=== PATIENT | male | born 1950 | race Caucasian/White ===

== ENCOUNTER 2017-02-07 16:00 | Inpatient (IN) ==
[~2017-02-07 16:00] MED LIST: ACETAMINOPHEN 325 MG TABLET PO PRN; DIAZEPAM 5 MG TABLET PO ONE; DOCUSATE SODIUM 100 MG CAPSULE PO PRN; ENOXAPARIN 30 MG/0.3 ML SYRINGE SUBCUT SCH; MAGNESIUM SULF RIDER 2 GM in PREMIX 1 EACH IV PRN; MAGNESIUM SULF RIDER 4 GM in PREMIX 1 EACH IV PRN; ONDANSETRON 4 MG/2 ML VIAL IV PRN; POTASSIUM CHLORIDE RIDER 10 MEQ in PREMIX 1 EACH IV PRN; SODIUM CHLORIDE 0.9% 1,000 ML IV SCH; ZALEPLON 5 MG CAPSULE PO PRN; diphenhydrAMINE CAP 25 MG CAPSULE PO ONE
--- NOTE | 2017-02-07 16:26 | Cardiology History & Physical ---
Assessment and Plan - Time spent with patient Time spent with patient: Less than 30 minutes (1) Dyspnea on exertion Status: Acute Assessment and plan: This is been somewhat progressive recently. His alcohol confusion state indicates the possibility this is being an anginal equivalent. Current Visit: Yes (2) Anginal equivalent Status: Acute Assessment and plan: His vision exertion as well as fatigability is been progressive may be secondary to underlying coronary disease and this may be the anginal equivalent. Current Visit: Yes (3) Abnormal cardiovascular function study Status: Acute Assessment and plan: Abnormal car perfusion study recently indicative of underlying cardiac ischemia. Current Visit: Yes (4) Hypertension Status: Chronic Assessment and plan: This is a chronic issue but recently been fairly stable. Current Visit: Yes (5) Peripheral vascular disease Status: Chronic Assessment and plan: This is chronic and he is had femorofemoral bypass surgery before. Current Visit: Yes (6) CVA (cerebral vascular accident) Status: Chronic Assessment and plan: This is actually recent. He is recovered well from this. Current Visit: Yes (7) Fatigue Status: Acute Assessment and plan: This is been a recent onset but slightly progressive and chronic. Anyway this may be secondary to cardiac/coronary artery disease. Current Visit: Yes (8) Chronic renal insufficiency Status: Chronic Assessment and plan: This is been very progressive and is reaching the point now that he will probably have to have dialysis especially after his car catheterization. I did discuss with him and his the fact that more likely he will be on dialysis after his cardiac catheterization. I discussed earlier today with Dr. estrada and he notes that he thinks patient's current have to have dialysis soon and is already planning on placing a dialysis catheter. The plan is to be go ahead and pursue that this admission. Current Visit: Yes History of Present Illness Chief complaint: abnormal cardiac perfusion study History of present illness: Mr. Ferreira is a 67 year old male whom we have been following up in the office. The patient had progressive dyspnea and evaluation revealed abnormal car perfusion study. He had multiple risk factors for coronary artery disease. I discussed right and left heart catheterization with the patient and his again today. We reviewed indications procedure high be carried out and the risk. I discussed cardiac catheterization and percutaneous coronary intervention with the patient and available family. I reviewed with them the indications for the procedure and the basis of how the procedure would be carried out. I also reviewed with them the risk of the procedure which include but not necessarily limited to access site bleeding, bruising, pain, swelling or vascular injury that may require emergency vascular surgery, blood transfusion, or thrombin injection. Also discussed the possibility of stroke, myocardial infarction, arrhythmia which may require electrocardioversion, and the possibility of dye reaction that would require medical therapy. Also discussed the possibility of coronary artery injury, ruptured, closure or perforation that may require emergency bypass surgery. We also discussed the possibility of from a major complication. They also understand that he has a significant risk that he will have renal failure requiring dialysis after the procedure. I'll artery spoken with Dr. Godinez and he plans on having a temporary dialysis catheter placed. Dr. Godinez has been consult. They voice understanding and agree to proceed. My plans will be to do a right heart catheterization only if I think we find significant evidence to need to pursue this. Home Medications Medication Instructions Recorded Confirmed Type Aspirin Tab 325 mg PO DAILY 02/02/17 History Atorvastatin [Lipitor] 20 mg PO DAILY 02/02/17 History Clopidogrel [Plavix] 75 mg PO DAILY 02/02/17 History Losartan [Cozaar] 50 mg PO DAILY 02/02/17 History NIFEdipine XL TAB [Procardia Xl] 90 mg PO DAILY 02/02/17 History Allergies Allergy/AdvReac Type Severity Reaction Status Date / Time clopidogrel [From Plavix] Allergy Intermediate RASH Unverified 02/06/17 07:30 aspirin AdvReac Intermediate Gastrointestinal Unverified 02/06/17 07:30 Upset atorvastatin [From Lipitor] AdvReac Intermediate Muscle Pain Unverified 07:30 losartan AdvReac Intermediate Dizziness Unverified 02/06/17 07:30 nifedipine [From Procardia] AdvReac Intermediate Dizziness Unverified 02/06/17 07:30 Review of systems: Constitutional: Denies anorexia, chills, fever, frequent falls, night sweats, weight gain, weight loss Neck: Denies thyromegaly or masses. No stiffness. Cardiovascular: as per HPI Respiratory: Denies cough, hemoptysis, wheezing, snoring. He's had dyspnea and dyspnea on exertion. Gastrointestinal: Denies abdominal pain, constipation, dyspepsia, dysphagia, hematemesis, hematochezia, melena, nausea, vomiting Genitourinary: Denies dysuria, hematuria, nocturia. He has chronic renal insufficiency that has been progressive. Musculoskeletal: Denies arthralgias, joint swelling, muscle weakness, myalgias Neurological: denies abnormal gait, abnormal speech, confusion, convulsions, frequent falls, headaches, memory loss, syncope. He is had a recent TIA/CVA and is on Plavix. Psychiatric: Denies anxiety, confusion, depression Endocrine: Denies cold intolerance, fatigue, heat intolerance Hematologic/Lymphatic: Denies easy bleeding, easy bruising Dermatologic: Denies Rash, itching, shingles Medical,Surgical,& Family Hx - Medical History Cardio: History of: CAD, Hypertension, PVD (has had femorofemoral bypass previously) Neurology: History of: Cerebrovascular Accident Renal: History of: Renal Failure (progressive chronic renal insufficiency) - Surgical History Additional Surgical History: Femoral to femoral bypass surgery - Social History Smoking Status: Heavy tobacco smoker Have you smoked in the last 12 months: Yes Time spent discussing smoking cessation with patient: 3 to 10 minutes Marital Status: Lives With:: Spouse Functional capacity: independent ambulation Cardiology Physical Exam - Constitutional Exam: General appearance: normal weight, no acute distress Head exam: normal inspection, atraumatic Eye exam: Pupils are equal and reactive. EOMI. There is no trauma. Ear exam: Anatomically normal. Normal auditory acuity to conversation. Oral exam: No significant oral lesions. Neck exam: normal inspection no JVD. No carotid bruit. Trachea is in midline. Respiratory exam: clear to auscultation bilaterally posteriorly and anteriorly with good air movement. No rales, rhonchi or wheezes. Cardiovascular exam: regular rate and rhythm, no murmur or gallop or rub. No precordial lift. No bruits over the major arteries. Chest wall/torso: Anatomically normal. No tenderness, deformity Peripheral Pulses: 2+ throughout. GI/Abdominal exam: normal bowel sounds, soft and nontender, no abdominal bruits or pulsatile masses. Musculoskeletal/Extremities exam: normal inspection without edema or cyanosis. No deformities or trauma. Neurological exam: alert, oriented X3. There is no gross neurologic deficits. Psychiatric exam: normal affect, normal mood. Cognitive function is grossly intact. Skin exam: normal color, warm. No rashes or other skin lesions.
[2017-02-07 16:43] LABS: Basophils # 0.1 10*3/uL (0.0-0.2); Basophils % 0.7 % (0.0-0.8); Eosinophils # 0.2 10*3/uL (0.0-0.87); Eosinophils % 1.5 % (0.00-10.9); Hematocrit 29.1 VOL% (42.0-52.0); Hemoglobin 9.4 GM/DL (14.0-18.0); Immature Granulocytes % 0.7 %; Immature Granulocytes Absolute 0.07 #; Lymphocytes # 1.4 10*3/uL (1.4-4.0); Lymphocytes % 14.6 % (21.2-54.2); Mean Corpuscular HGB Conc 32.3 GM/DL (32-36); Mean Corpuscular Hemoglobin 32 PG (27-34); Mean Corpuscular Volume 98.3 FL (87-102); Mean Platelet Volume 10.7 FL (9.6-12.0); Monocytes # 0.7 10*3/uL (0.11-0.8); Monocytes % 7.3 % (1.7-12.7); Neutrophils # 7.4 10*3/uL (1.4-7.4); Neutrophils % 75.2 % (38.7-73.9); Platelet Count 285 T/CUMM (130-400); Red Blood Count 2.96 MC/CUMM (3.8-5.5); Red Cell Distribution Width 16.4 % (9.3-17.3); White Blood Count 9.8 T/CUMM (4-12)
[2017-02-07 17:04] LABS: Alanine Aminotransferase 9 U/L (16-61); Albumin 3.6 G/DL (3.4-5.0); Alkaline Phosphatase 89 U/L (45-117); Aspartate Amino Transferase 4 U/L (0-37); Bilirubin,Total < 0.39 MG/DL (0.2-1.0); Blood Urea Nitrogen 47 MG/DL (7-18); Calcium 7.8 MG/DL (8.5-10.1); Cholesterol 108 MG/DL (50-200); Glucose 126 MG/DL (74-106); HDL Cholesterol 40 MG/DL (40-60); Magnesium 2.1 MG/DL (1.8-2.4); Osmolality,Calculated 309.1 MOS/KG (273-304); Potassium 4.8 MMOL/L (3.5-5.1); Sodium 149 MMOL/L (136-145); Total Protein 7.1 G/DL (6.4-8.3); Triglycerides 122 MG/DL (2-150); VLDL CHOLESTEROL 24.4 MG/DL
--- NOTE | 2017-02-07 18:15 | XRay Report ---
2 view chest. Indication: Shortness of breath. Comparison: October 05, 2012. The heart is mildly enlarged. Calcific plaque is present within the aortic knob. The pulmonary vasculature is normal. The lung spicer are clear. No pneumothorax or pleural effusion. Impression: Mild cardiomegaly. PROCEDURE INTERPRETED AT [facility] DEPARTMENT OF RADIOLOGY Final Report Signed by: Dr. Anupama De La Torre
[2017-02-07] MEDS: SODIUM BICARB INJ 150 MEQ in DEXTROSE 5% 1,000 ML IV SCH (18:24)
[2017-02-07] MEDS: ENOXAPARIN 30 MG/0.3 ML SYRINGE SUBCUT SCH (18:25)
[2017-02-07 19:34] LABS: Apearance,Urine CLEAR (Clear); Bilirubin,Urine Negative (Negative); Blood, Urine Small mg/dL (Negative); Glucose,Urine (UA) 50 mg/dL (Negative); Ketones,Urine Negative (Negative); Mucus,Urine Occasional /LPF (Occasional); Nitrite,Urine Negative (Negative); Protein,Urine 100 MG/DL; RBC,Urine <1 /HPF (0-4); Urine Color Straw (Yellow); Urine Urobilinogen < 2.0 EU/DL (0.2-1.0); WBC,Urine 1 /HPF (0-6)
[2017-02-08] MEDS ORDERED: diphenhydrAMINE CAP 25 MG CAPSULE PO ONE (06:00)
[2017-02-08] MEDS ORDERED: DIAZEPAM 5 MG TABLET PO ONE (06:00)
--- NOTE | 2017-02-08 06:49 | Cardiology Progress Note ---
Assessment and Plan (1) Dyspnea on exertion Status: Acute Assessment and plan: This is been somewhat progressive recently. His alcohol confusion state indicates the possibility this is being an anginal equivalent. Current Visit: Yes (2) Anginal equivalent Status: Acute Assessment and plan: His dyspnea on exertion as well as fatigability is been progressive may be secondary to underlying coronary disease and this may be the anginal equivalent. Current Visit: Yes (3) Abnormal cardiovascular function study Status: Acute Assessment and plan: Abnormal cardiac perfusion study recently indicative of underlying cardiac ischemia. Current Visit: Yes (4) Hypertension Status: Chronic Assessment and plan: This is a chronic issue and is elevated some this morning. We will need to adjust his medications accordingly Current Visit: Yes (5) Peripheral vascular disease Status: Chronic Assessment and plan: This is chronic and he is had femorofemoral bypass surgery before. Current Visit: Yes (6) CVA (cerebral vascular accident) Status: Chronic Assessment and plan: This is actually recent. He is recovered well from this. Current Visit: Yes (7) Fatigue Status: Acute Assessment and plan: This is been a recent onset but slightly progressive and chronic. Anyway this may be secondary to cardiac/coronary artery disease. Current Visit: Yes (8) Chronic renal insufficiency Status: Chronic Assessment and plan: This is been very progressive and is reaching the point now that he will probably have to have dialysis especially after his cardiac catheterization. Again I discuss with him and his the fact that more likely he will be on dialysis after his cardiac catheterization. Dr. Godinez has been consult. Current Visit: Yes Cardiology - PN: Subj Interval history: Patient is doing well this morning. No chest pain shortness of breath. He is receiving IV fluids, bicarbonate in preparation for his cardiac catheterization. Again reviewed cardiac catheterization and possible intervention with the patient's family. They voice understanding and have no questions. We will pursue car catheterization today. Patient's lab work is reviewed in his hematocrit is 29 hemoglobin 9.4. His creatinine is 5.8 BUN is 47. Exam (Progress Note) - Constitutional Vitals: Period Temp Pulse Resp BP Sys/Thomas Pulse Ox Last 24 Hr 98 F-99.3 F 69-83 18-20 163-189/82-112 97-100 Exam: General appearance: normal weight, no acute distress Head exam: normal inspection, atraumatic Eye exam: There is no trauma. Ear exam: Anatomically normal. Normal auditory acuity to conversation. Neck exam: normal inspection no JVD. No carotid bruit. Trachea is in midline. Respiratory exam: clear to auscultation bilaterally posteriorly and anteriorly with good air movement. No rales, rhonchi or wheezes. Cardiovascular exam: regular rate and rhythm, no murmur or gallop or rub. No precordial lift. No bruits over the major arteries. Chest wall/torso: Anatomically normal. No tenderness, deformity Peripheral Pulses: 2+ throughout. GI/Abdominal exam: normal bowel sounds, soft and nontender, no abdominal bruits or pulsatile masses. Musculoskeletal/Extremities exam: normal inspection without edema or cyanosis. No deformities or trauma. Neurological exam: alert, oriented X3. There is no gross neurologic deficits. Psychiatric exam: normal affect, normal mood. Cognitive function is grossly intact. Skin exam: Warm and dry. Result/EKG - Labs CBC & BMP: 02/07/17 16:26 02/07/17 16:26 Lab Results: I have reviewed the past 24 hour labs Labs: Laboratory Results - last 24 hr 02/07/17 02/07/17 02/07/17 16:26 16:26 19:15 WBC 9.8 RBC 2.96 L Hgb 9.4 L Hct 29.1 L MCV 98.3 MCH 32 MCHC 32.3 RDW 16.4 Plt Count 285 MPV 10.7 Neut % (Auto) 75.2 H Lymph % (Auto) 14.6 L [place] % (Auto) 7.3 Eos % (Auto) 1.5 Baso % (Auto) 0.7 Neut # (Auto) 7.4 Lymph # (Auto) 1.4 [place] # (Auto) 0.7 Eos # (Auto) 0.2 Baso # (Auto) 0.1 Immature Gran % 0.7 Nucleated RBC % 0.0 Immature Gran # 0.07 Nucleated RBCs # 0.00 Sodium 149 H Potassium 4.8 Chloride 121 H Carbon Dioxide 15 L Anion Gap 17.8 H BUN 47 H Creatinine 5.80 H GFR Calculation 11 BUN/Creatinine Ratio 8.00 Glucose 126 H Calculated Osmolality 309.1 H Calcium 7.8 L Magnesium 2.1 Total Bilirubin < 0.39 AST 4 ALT 9 L Alkaline Phosphatase 89 Total Protein 7.1 Albumin 3.6 Globulin 3.5 Albumin/Globulin Ratio 1.0 L Triglycerides 122 Cholesterol 108 LDL Cholesterol 51.0 VLDL Cholesterol 24.4 HDL Cholesterol 40 Heart Disease Risk Ratio 2.70 Urine Color Straw Urine Appearance Clear Urine pH 5.0 Ur Specific [place] 1.010 Urine Protein 100 Urine Glucose (UA) 50 Urine Ketones Negative Urine Blood Small Urine Nitrate Negative Urine Bilirubin Negative Urine Urobilinogen < 2.0 H Urine Leukocytes Negative Urine RBC <1 Urine WBC 1 Urine Mucus Occasional Ur Culture Indicated? Not indicated
--- NOTE | 2017-02-08 06:56 | History and Physical Update ---
Sedation H&P Update - History and Physical H&P was reviewed, the patient examined and there: are no changes in the patients condition since last H&P was completed. - Dictation Physical: refer to scanned H&P, refer to H&P completed by admitting physician - Physical Exam Mental Status: alert and oriented Heart: regular rate and rhythm Lung: clear to auscultation Abdomen: within normal limits Vitals: within normal limits History and Physical Changes: None - Sedation Plan for Sedation: moderate Patient Consent: Procedure disscussed with patient and patinet has consented., Risks and benefits were discussed with patient,including infection,, bleeding, injury to surrounding structures, seizure, temporary nerve, Patient understands and accepts potential risks/benefits and agrees to, proceed. ASA Class: III Airway Assessment: Class III: Soft palate, base of uvula visible
[2017-02-08] MEDS ORDERED: LIDOCAINE 1% 20 ML VIAL ONE (07:18)
[2017-02-08] MEDS ORDERED: MIDAZOLAM 2 MG/2 ML VIAL ONE ×2 (07:19→15:43)
[2017-02-08] MEDS ORDERED: NITROGLYCERIN DRIP 50 MG/250 ML BOTTLE IV ONE (07:19)
[2017-02-08] MEDS ORDERED: fentaNYL 100 MCG/2 ML VIAL ONE ×2 (07:19→15:43)
[2017-02-08] MEDS ORDERED: VERAPAMIL 5 MG/2 ML VIAL ONE (07:19)
[2017-02-08] MEDS ORDERED: ENOXAPARIN 30 MG/0.3 ML SYRINGE ONE (07:35)
--- NOTE | 2017-02-08 07:56 | Operative Note ---
Date of procedure: 02/08/17 Procedure Preformed: Left heart catheterization Surgeon / Physician: Adan Lemus Post-op diagnosis: same Findings: Diffuse coronary artery disease of his left coronary system. Patient needs coronary bypass surgery Specimens: none sent Estimated blood loss: minimal Condition: stable Anesthesia: local, conscious sedation Disposition: floor
--- NOTE | 2017-02-08 08:23 | Event Note ---
Dr. Godinez has requested a tunneled hemodialysis catheter. I discussed tunneled dialysis catheter along with the risks with the patient and his family. He just had a heart catheterization and has been told that he will need heart surgery. I discussed the risks both from an anesthetic standpoint considering his heart disease and comorbidities as well as the risks specific to the procedure including thrombosis infection pneumothorax or injury to heart or great vessels. He understands these risks and wishes to proceed.
--- NOTE | 2017-02-08 08:27 | Cardiac Catheterization ---
Date of Procedure:: 02/08/17 Pre-op Diagnosis: Patient with clinical coronary artery disease and abnormal cardiac perfusion study. Post-op diagnosis: same Procedure: LEFT HEART CATHETERIZATION History: 67-year-old man with multiple risk factors for coronary disease. Now recent angina and dyspnea on exertion. And PERFUSION study consistent ischemic heart disease. Pre-Op diagnosis: Abnormal cardiac perfusion study, dyspnea on exertion and angina equivalent symptomatology. Coronary disease. Postoperative diagnosis: Coronary artery disease Procedures: 1. Left heart catheterization. 2. Left ventricular angiogram. 3. Selective left and right coronary angiograms. Equipment: Terumo 6 [place] radial glide arterial sheath, Terumo 6 [place] radial TIG 4.0 diagnostic. Medium/Large TR band. Medications: Preoperative Benadryl and Valium given by mouth. Lidocaine 1% local anesthesia 0.25 mls administered by myself. Intraprocedure patient received Versed 1 mgs IVP, fentanyl 50 mcgs IVP, Verapamil 5 mg/NTG 200 mcg in 5 ml NS; Lovenox 30 mgs IVP. Complications: None immediate. Contrast: Visipaque 76 milliliters. Description of procedure: After informed consent the patient was given preoperative medications and brought to the catheterization laboratory where their right groin and right anterior wrist and forearm was prepped and draped in usual fashion. IV sedation was then obtained after which local anesthesia with lidocaine was administered over the right radial artery. Using the double wall needle the radial artery was cannulated. Microguidewire was advanced through the cannula into the radial artery. We exchanged for the radial artery sheath that was advanced over the microguidewire. Guidewire was removed. The diagnostic 6 [place] TIG 4.0 catheter was advanced and used to cross the aortic valve and left ventricular pressures were measured with LVEDP. Left ventricular angiogram was then obtained in the right oblique view. Pressures were again measured in the left ventricle with pullback pressures were then measured in the aortic root. This same catheter was then used to cannulate the left and then right coronary arteries of which angiograms were obtained of each of these vessels in multiple projections. The angiograms were then reviewed. We attempted to cannulate the left subclavian artery for angiogram was unable to do so. The diagnostic catheter was then removed over the guidewire. The TR band was then placed in the usual fashion and hemostasis obtained. Hemodynamic data: LV 114/5 , EDP 10 ; post angio LV 107/3 , EDP 15 ; AO root 108/63 , mean 83 . Left ventricular angiogram: Left ventricle normal size with anterior and apical hypokinesis and severe. Inferior wall contract fairly normally. Overall ejection fraction 40%. Left main coronary artery angiogram: Left main coronary artery is medium to large sized vessel that bifurcated LAD and circumflex arteries. It is without stenosis or disease. Left anterior descending artery angiogram: The LAD is a medium plus size vessel. First and second diagonal branches appear to be somewhat small medium caliber vessels. The LAD proper has 80+ percent stenosis between the first and second diagonal branches. The first diagonal branch appears to be unremarkable without significant disease. The second diagonal branch has high-grade 90% stenosis. Circumflex artery angiogram: Circumflex artery is medium caliber vessel. The first obtuse marginal branch is very proximal takeoff and is a medium caliber vessel. This vessel has diffuse disease with up to 70-80% stenosis. Beyond this the entire circumflex artery has diffuse disease up to 90% stenosis. The second obtuse marginal is a medium caliber vessel and up for bypass surgery. Right coronary artery angiogram: The RCA is a medium caliber dominant vessel. The PDA is a medium caliber vessel. There is multiple postop branches are arranged in small to medium caliber, large in the posterior myocardium. The AV node artery small caliber vessel with a distal takeoff. There is some diffuse irregularities without at 2030% proximal and distal stenosis. Distal stenosis is pre-PDA takeoff. Left internal mammary artery angiogram: We were unable to visualize this vessel. Impression: 1. Left ventricle is normal size with anterior apical hypokinesis ejection fraction 40%. 2. LVEDP was normal at 10 mmHg. 3. There was no gradient across the aortic valve. This out. To be probably tricuspid structure. 4. No significant mitral regurgitation is demonstrated. 5. Right coronary artery is dominant with 20-30% stenosis at worst. 6. Left main coronary is widely patent. 7. LAD with mid 80+ percent stenosis, secondary to what I percent stenosis. 8. Circumflex artery with diffuse coronary disease with high-grade 78% stenosis in the first obtuse marginal branch and diffuse stenosis in the body of the circumflex artery of up to 90% stenosis. 9. The LAD as well as both obtuse marginal branches are adequate for bypass surgery. Discussion: We'll monitor this patient post catheterization. This patient is aggressive risk factor modification. I think his disease is best approached from bypass surgery. We'll consult cardiovascular surgery. Implants: None Anesthesia: local, moderate conscious sedation Surgeon / Physician: Adan Lemus Palm And Back Forger: other (Tremayne Noland RN) Estimated blood loss: minimal Specimens: none sent Condition: stable Disposition: floor - Medications / Follow-up
--- NOTE | 2017-02-08 08:37 | Nephrology Consult Note ---
History of Present Illness Chief complaint: Late entry, pt seen yesterday. 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 Ferreira is a 67 year old male with CKD for years with atrophic/ischemic kidneys (5cm and 8cm respectively in renal lengths). Initially seen by me in clinic approx one month ago. Sent for hemodialysis surgical access placement. He was seen in clinic yesterday by me. BP improved, but still not at goal after adding losartan 50mg daily. Stated he feels terrible. Metabolic acidosis worse ( CO2 15). eGFR 9cc/min with mild uremic symptoms. Admitted for elective coronary angiography yesterday evening and started on bicarb volume resuscitation overnight. Cath this am with multivessel ASCAD. Plan to keep hospitalized until 3v CABG can be performed. Home Medications Medication Instructions Recorded Confirmed Type Atorvastatin [Lipitor] 20 mg PO BEDTIME 02/02/17 02/07/17 History Clopidogrel [Plavix] 75 mg PO BEDTIME 02/02/17 02/07/17 History Losartan [Cozaar] 50 mg PO BEDTIME 02/02/17 02/07/17 History NIFEdipine XL TAB [Procardia Xl] 90 mg PO BEDTIME 02/02/17 02/07/17 History Aspirin EC Tab 81 mg PO BEDTIME 02/07/17 02/07/17 History Allergies Allergy/AdvReac Type Severity Reaction Status Date / Time No Known Allergies Allergy Verified 02/08/17 07:05 Medical,Surgical,& Family Hx - Medical History Cardio: History of: CAD, Hypertension, PVD (has had femorofemoral bypass previously) Neurology: History of: Cerebrovascular Accident Endocrine: History of: Dyslipidemia Renal: History of: Renal Failure (progressive chronic renal insufficiency) Gastrointestinal: History of: GERD - Surgical History Cardiac Surgeries: Sugical HX of: Cardiac Surgery (previous fempop) - Family History Family History: Reports;: Family Diabetes, Family Hypertension - Social History Smoking Status: Heavy tobacco smoker Exam - Vital Signs Vital signs: Period Temp Pulse Resp BP Sys/Thomas Pulse Ox Last 24 Hr 98 F-99.3 F 69-83 18-20 163-189/82-112 97-100 - General Appearance General appearance: cachectic, chronically ill EENT: ATNC, PERRL, mucous membranes dry (edentulous), hearing intact, vision intact Neck: no JVD, no thyromegaly Respiratory: no kyphosis, clear Cardiology: no murmurs, no rub, no edema Gastrointestinal: normoactive bowel sounds, no tenderness Integumentary: no rash, warm and dry Neurologic: no focal deficit, no asterixis, alert and oriented x3 Musculoskeletal: no deformities, no erythema Psychiatric: mood/affect appropriate, cooperative Results - Labs CBC & BMP: 02/07/17 16:26 02/07/17 16:26 Assessment and Plan (1) ESRD needing dialysis Problem details: Discussed with vascular surgeon, Dr Sergio GIBSON. Plan for tunneled HD catheter placement today with initiation of HD daily for 3 days. Low and slow. Optimize medically for CABG. Daily HD x 3 days. 2hrs today, 3hrs tomorrow, 4hrs the next day. No UF today. Heparin free today. Status: Acute Assessment and plan: Social work consult for outpatient dialysis placement. Likely best unit would be the [facility]. ESRD educator, Michelle Bhatia. Current Visit: Yes (2) Hypertension Problem details: likely renovascularly driven. D/Cd losartan, start valsartan 160mg daily. Goal <130/80. Status: Chronic Current Visit: Yes
[2017-02-08] MEDS ORDERED: EPOETIN ALFA 10,000 UNIT/1 ML VIAL IV PRN (08:47)
[2017-02-08 09:54] LABS: % Iron Saturation 29.5 % (18-50)
[2017-02-08] MEDS: VALSARTAN 160 MG TABLET PO SCH (09:56)
[2017-02-08] MEDS: ACETAMINOPHEN 325 MG TABLET PO PRN ×2 (09:56→18:51)
[2017-02-08] MEDS: NICOTINE 21 MG/24 HR PATCH TRANSDERM SCH (09:56)
[2017-02-08] MEDS: CALCITRIOL 0.25 MCG CAPSULE PO SCH (09:56)
[2017-02-08] MEDS: PANTOPRAZOLE 40 MG TABLET PO SCH (09:57)
[2017-02-08] MEDS: SODIUM BICARB INJ 150 MEQ in DEXTROSE 5% 1,000 ML IV SCH ×4 (11:26→22:25)
--- NOTE | 2017-02-08 11:30 | EKG Report ---
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
[2017-02-08] MEDS ORDERED: DEXTROSE 50% 25 GM/50 ML VIAL IV PRN (11:39)
[2017-02-08] MEDS ORDERED: GLUCAGON 1 MG VIAL IM PRN (11:39)
--- NOTE | 2017-02-08 11:39 | Cardiothoracic Progress Note ---
Cardiothoracic Subjective Interval history: Patient is a 67-year-old man with chronic kidney disease who is going to be started on hemodialysis during this hospitalization. He also has had chest discomfort prompting cardiac catheterization which demonstrated severe LAD and circumflex coronary disease. Patient has been referred for bypass surgery. Upon reviewing the coronary angiograms I agree with Dr. Lemus that coronary bypass is the best option. He is to have his dialysis catheters placed today and ideally could be dialyzed tomorrow in preparation for bypass surgery on Monday. I have discussed this with the patient and I am going to write orders for Monday surgery pending the approval of Dr. Carver and Dr. Lemus. Exam (Progress Note) - Constitutional Vitals: Period Temp Pulse Resp BP Sys/Thomas Pulse Ox Last 24 Hr 98 F-99.3 F 66-83 18-20 149-189/82-112 96-100 Result/EKG - Labs CBC & BMP: 02/07/17 16:26 02/07/17 16:26 Labs: Laboratory Results - last 24 hr 02/07/17 02/07/17 02/07/17 16:26 16:26 19:15 WBC 9.8 RBC 2.96 L Hgb 9.4 L Hct 29.1 L MCV 98.3 MCH 32 MCHC 32.3 RDW 16.4 Plt Count 285 MPV 10.7 Neut % (Auto) 75.2 H Lymph % (Auto) 14.6 L Douglas % (Auto) 7.3 Eos % (Auto) 1.5 Baso % (Auto) 0.7 Neut # (Auto) 7.4 Lymph # (Auto) 1.4 Douglas # (Auto) 0.7 Eos # (Auto) 0.2 Baso # (Auto) 0.1 Immature Gran % 0.7 Nucleated RBC % 0.0 Immature Gran # 0.07 Nucleated RBCs # 0.00 Sodium 149 H Potassium 4.8 Chloride 121 H Carbon Dioxide 15 L Anion Gap 17.8 H BUN 47 H Creatinine 5.80 H GFR Calculation 11 BUN/Creatinine Ratio 8.00 Glucose 126 H Calculated Osmolality 309.1 H Calcium 7.8 L Magnesium 2.1 Iron TIBC % Saturation Total Bilirubin < 0.39 AST 4 ALT 9 L Alkaline Phosphatase 89 Total Protein 7.1 Albumin 3.6 Globulin 3.5 Albumin/Globulin Ratio 1.0 L Triglycerides 122 Cholesterol 108 LDL Cholesterol 51.0 VLDL Cholesterol 24.4 HDL Cholesterol 40 Heart Disease Risk Ratio 2.70 PTH Intact Urine Color Straw Urine Appearance Clear Urine pH 5.0 Ur Specific [place] 1.010 Urine Protein 100 Urine Glucose (UA) 50 Urine Ketones Negative Urine Blood Small Urine Nitrate Negative Urine Bilirubin Negative Urine Urobilinogen < 2.0 H Urine Leukocytes Negative Urine RBC <1 Urine WBC 1 Urine Mucus Occasional Ur Culture Indicated? Not indicated 02/08/17 02/08/17 09:04 09:04 WBC RBC Hgb Hct MCV MCH MCHC RDW Plt Count MPV Neut % (Auto) Lymph % (Auto) Douglas % (Auto) Eos % (Auto) Baso % (Auto) Neut # (Auto) Lymph # (Auto) [place] # (Auto) Eos # (Auto) Baso # (Auto) Immature Gran % Nucleated RBC % Immature Gran # Nucleated RBCs # Sodium Potassium Chloride Carbon Dioxide Anion Gap BUN Creatinine GFR Calculation BUN/Creatinine Ratio Glucose Calculated Osmolality Calcium Magnesium 2.0 Iron 62 L TIBC 210 L % Saturation 29.5 Total Bilirubin AST ALT Alkaline Phosphatase Total Protein Albumin Globulin Albumin/Globulin Ratio Triglycerides Cholesterol LDL Cholesterol VLDL Cholesterol HDL Cholesterol Heart Disease Risk Ratio PTH Intact 492.0 H Urine Color Urine Appearance Urine pH Ur Specific [place] Urine Protein Urine Glucose (UA) Urine Ketones Urine Blood Urine Nitrate Urine Bilirubin Urine Urobilinogen Urine Leukocytes Urine RBC Urine WBC Urine Mucus Ur Culture Indicated?
[2017-02-08] MEDS ORDERED: ceFAZolin 1,000 MG VIAL ONE (13:14)
[2017-02-08] MEDS ORDERED: HEPARIN 5,000 UNIT/1 ML VIAL ONE (13:34)
[2017-02-08] MEDS ORDERED: BUPIVACAINE MPF 0.25% /EPI 30 ML VIAL ONE (13:34)
[2017-02-08] MEDS: CALCIUM ACETATE 667 MG CAPSULE PO SCH ×2 (13:41→18:46)
[2017-02-08] MEDS: SODIUM CHLORIDE 0.9% 1,000 ML IV SCH (13:41)
--- NOTE | 2017-02-08 13:48 | Event Note ---
Patient doing well initially from his car catheterization morning. He is for bypass surgery Monday with Dr. Sky. The patient is having dialysis catheter placement for dialysis.
[2017-02-08 14:10] LABS: Hepatitis A Ab IgM Quant 0.11 Index; Hepatitis A Ab IgM Result Negative (Negative); Hepatitis B Core IgM Quant 0.16 Index; Hepatitis B Core IgM Result Negative (Negative); Hepatitis B Surface Ag Quant < 0.10 Index; Hepatitis B Surface Ag Result Negative (Negative); Hepatitis C Virus Ab Quant 0.11 Index; Hepatitis C Virus Ab Result Negative (Negative)
--- NOTE | 2017-02-08 15:30 | Operative Note ---
Date of procedure: 02/08/17 Pre-op diagnosis: chronic renal failure Post-op diagnosis: same Procedure: 19 cm tunneled hemodialysis catheter right internal jugular vein under ultrasound and fluoroscopic guidance Findings and technique: After informed consent was obtained patient was brought the operating room placed in spine position. After IV sedation was administered the patient's neck and chest was prepped and draped in usual sterile fashion. Local anesthesia was infiltrated and a sterile ultrasound probe placed on the right neck were the internal jugular vein was identified and accessed with single stick without difficulty. Guidewire was advanced under fluoroscopy and incision made at the guidewire puncture site and a separate stab incision made beneath the right clavicle. The catheter was tunneled between the 2 incisions and an introducer sheath passed over the guidewire without resistance and the catheter introduced after the guidewire was removed. The catheter was positioned the tip in the mid superior vena cava under fluoroscopy and the catheter was easily accessed aspirated and flushed. The incision the neck was closed up to 3-0 nylon suture and the catheter sutured to the skin. A chest x-ray was pending. Anesthesia: MAC, local Surgeon / Physician: Joseph Hill III. Estimated blood loss: minimal Specimens: none sent Condition: stable Disposition: PACU Results - Labs CBC & BMP: 02/07/17 16:26 02/07/17 16:26 Discharge Plan - Discharge Medications No Action NIFEdipine XL TAB [Procardia Xl] 90 mg PO BEDTIME Losartan [Cozaar] 50 mg PO BEDTIME Clopidogrel [Plavix] 75 mg PO BEDTIME Atorvastatin [Lipitor] 20 mg PO BEDTIME Aspirin EC Tab 81 mg PO BEDTIME - Follow Up or Referral - Forms/Instructions
--- NOTE | 2017-02-08 15:41 | Anesthesia ---
Anesthesia Post OP - Post Ansesthetic Evaluation Patient seen in post op: Yes Resp: within normal limits CV: within normal limits Mental: within normal limits Temp: within normal limits [id number]-[id number]: within normal limits Nausea and Vomiting: within normal limits Pain: within normal limits
[2017-02-08] MEDS ORDERED: PROPOFOL 200 MG/20 ML VIAL IV ONE (15:43)
--- NOTE | 2017-02-08 15:57 | XRay Report ---
XR chest 1V portable Indication: Dialysis catheter placement Comparison: Chest x-ray dated February 07, 2017 Technique: Single frontal view of the chest Findings: Continued cardiomegaly. Right-sided central venous catheter tip projects over the mid SVC. No focal consolidation, pleural effusion, or pneumothorax. Osseous and surrounding soft tissue structures appear grossly unchanged. IMPRESSION: Continued cardiomegaly without harlan pulmonary edema. PROCEDURE INTERPRETED AT [facility] DEPARTMENT OF RADIOLOGY Final Report Signed by: Dr Anthony Limon
--- NOTE | 2017-02-08 16:38 | Interventional Radiology Rpt ---
IR fluoro guide cv cath Clinical Information: ESRD with new dialysis catheter Total fluoroscopy time: 9 SEC Comparison: none Findings: Interoperative fluoroscopy for dialysis catheter placement at the right internal jugular vein. 29 images were submitted. Images were evaluated by the attending surgeon at the time of the procedure. Impression: Intraoperative fluoroscopy as detailed above. PROCEDURE INTERPRETED AT [facility] DEPARTMENT OF RADIOLOGY Final Report Signed by: Ravi Dietz
--- NOTE | 2017-02-08 18:23 | Hospitalist Consult Note ---
Assessment and Plan (1) Elevated glucose Status: Acute Assessment and plan: Only slightly elevated. No known history. Will check A1C Current Visit: Yes (2) Hypertension Problem details: likely renovascularly driven. D/Cd losartan, start valsartan 160mg daily. Goal <130/80. Status: Chronic Assessment and plan: Started on valsartan today. Nephrology managing Current Visit: Yes (3) CVA (cerebral vascular accident) Status: Chronic Assessment and plan: Per patient 6 weeks ago Current Visit: Yes (4) ESRD needing dialysis Problem details: Discussed with vascular surgeon, Dr Sergio GIBSON. Plan for tunneled HD catheter placement today with initiation of HD daily for 3 days. Low and slow. Optimize medically for CABG. Daily HD x 3 days. 2hrs today, 3hrs tomorrow, 4hrs the next day. No UF today. Heparin free today. Status: Acute Assessment and plan: Left tunnel cath placed today. HD initiated 02/08/17. Current Visit: Yes History of Present Illness - Consult Narrative History of present illness: Mr. Ferreira is a 67 year old male with HTN, CKD and PVD admitted for CABG. Cardiac cath performed today with extensive disease. Patient has been followed closely by nephrology for progressing CKD. Tunnel cath was placed today with initiation of HD afterwards. Hospitalist have been consulted for medical management. Patient denies a history of Diabetes mellitus. CC: fatigue - Home Medications and Allergies Home Medications: Home Medications Medication Instructions Recorded Confirmed Type Atorvastatin [Lipitor] 20 mg PO BEDTIME 02/02/17 02/07/17 History Clopidogrel [Plavix] 75 mg PO BEDTIME 02/02/17 02/07/17 History Losartan [Cozaar] 50 mg PO BEDTIME 02/02/17 02/07/17 History NIFEdipine XL TAB [Procardia Xl] 90 mg PO BEDTIME 02/02/17 02/07/17 History Aspirin EC Tab 81 mg PO BEDTIME 02/07/17 02/07/17 History Allergies/Adverse Reactions: Allergies Allergy/AdvReac Type Severity Reaction Status Date / Time No Known Allergies Allergy Verified 02/08/17 07:05 Medical,Surgical,& Family Hx - Medical History Cardio: History of: CAD, Hypertension, PVD (has had femorofemoral bypass previously) Neurology: History of: Cerebrovascular Accident Endocrine: History of: Dyslipidemia Renal: History of: Renal Failure (progressive chronic renal insufficiency) Gastrointestinal: History of: GERD - Surgical History Cardiac Surgeries: Sugical HX of: Cardiac Surgery (previous fempop) - Family History Family History: Reports;: Family Diabetes, Family Hypertension - Social History Smoking Status: Heavy tobacco smoker - Constitutional Constitutional: Absent: fever(s), headache(s) - EENT Eyes: Present: blurry vision. Absent: diplopia Ears: Absent: decreased hearing, ear pain Nose, mouth and throat: Absent: nasal congestion, sinus pressure - Cardiovascular Cardiovascular: Present: dyspnea on exertion. Absent: edema - Respiratory Respiratory: Absent: cough, wheezing - Gastrointestinal Gastrointestinal: Absent: abdominal pain, change in bowel habits - Genitourinary Genitourinary: Absent: difficulty urinating, urinary frequency - Musculoskeletal Musculoskeletal: Absent: back pain, joint swelling - Neurological Neurological: Absent: dizziness, focal weakness - Psychiatric Psychiatric: Absent: anxiety, depression - Endocrine Endocrine: Absent: cold intolerance, heat intolerance - Hematologic/Lymphatic Hematologic/Lymphatic: Absent: easy bleeding, easy bruising Exam - Constitutional Vitals: Period Temp Pulse Resp BP Sys/Thomas Pulse Ox Last 24 Hr 97.6 F-99.3 F 66-80 16-20 149-185/82-109 95-100 General appearance: over weight - Head Head exam: Present: normocephalic, atraumatic - Eye Eye exam: Present: EOMI Pupils: Present: DEB - ENT ENT exam: Present: normal exam - Neck Neck exam: Present: normal inspection - Respiratory Respiratory exam: Present: clear to auscultation bilaterally. Absent: wheezes - Cardiovascular Cardiovascular exam: Present: regular rate and rhythm - GI/Abdominal GI/Abdominal exam: Present: normal bowel sounds, soft - Extremities Exam Extremities exam: Present: normal inspection - Neurological Exam Neurological exam: Present: alert, oriented X3 - Psychiatric Psychiatric exam: Present: normal affect, normal mood - Skin Skin exam: Present: warm, intact Results - Labs CBC & BMP: 02/07/17 16:26 02/07/17 16:26 Quality Measures - VTE Contraindication to Pharmacological VTE Prophylaxis: High Risk of Bleeding
[2017-02-08] MEDS ORDERED: hydrALAZINE 20 MG/1 ML VIAL IV PRN (18:33)
[2017-02-08] MEDS: ENOXAPARIN 30 MG/0.3 ML SYRINGE SUBCUT SCH (18:47)
[2017-02-08] MEDS ORDERED: CLOPIDOGREL 75 MG TABLET PO SCH (21:00)
[2017-02-08] MEDS ORDERED: LOSARTAN 50 MG TABLET PO SCH (21:00)
[2017-02-08] MEDS: ATORVASTATIN 20 MG TABLET PO SCH (21:07)
[2017-02-08] MEDS: ASPIRIN EC 81 MG TABLET PO SCH (21:07)
[2017-02-08] MEDS: CHLORHEXIDINE 0.12% ORAL RINSE 60 ML BOTTLE SWISH/SPIT SCH (22:25)
[2017-02-09 03:47] LABS: ABG Base Excess -2.1 MMOL/L (-2.5-2.5); ABG HCO3 21.9 MMOL/L (20-26); ABG Oxygen Saturation 93.4 % (95-100); ABG PCO2 34.3 MM HG (35-48); ABG PH 7.423 (7.35-7.45); ABG PO2 67.9 MM HG (80-95)
[2017-02-09 05:36] LABS: Basophils # 0.1 10*3/uL (0.0-0.2); Eosinophils # 0.2 10*3/uL (0.0-0.87); Eosinophils % 1.9 % (0.00-10.9); Hematocrit 24.6 VOL% (42.0-52.0); Hemoglobin 8.3 GM/DL (14.0-18.0); Immature Granulocytes % 0.6 %; Immature Granulocytes Absolute 0.06 #; Lymphocytes # 1.4 10*3/uL (1.4-4.0); Lymphocytes % 13.8 % (21.2-54.2); Mean Corpuscular HGB Conc 33.7 GM/DL (32-36); Mean Corpuscular Hemoglobin 31 PG (27-34); Mean Corpuscular Volume 92.5 FL (87-102); Monocytes # 0.8 10*3/uL (0.11-0.8); Monocytes % 8.2 % (1.7-12.7); Neutrophils # 7.5 10*3/uL (1.4-7.4); Neutrophils % 74.5 % (38.7-73.9); Platelet Count 232 T/CUMM (130-400); Red Blood Count 2.66 MC/CUMM (3.8-5.5); Red Cell Distribution Width 15.5 % (9.3-17.3); White Blood Count 10.1 T/CUMM (4-12)
[2017-02-09 06:10] LABS: Calcium 7.8 MG/DL (8.5-10.1); Osmolality,Calculated 301.3 MOS/KG (273-304); Phosphorous 4.1 MG/DL (2.5-4.9); Potassium 4.1 MMOL/L (3.5-5.1)
[2017-02-09 06:20] LABS: Bilirubin,Total 0.5 MG/DL (0.2-1.0); Calcium 7.9 MG/DL (8.5-10.1); Osmolality,Calculated 303.1 MOS/KG (273-304); Potassium 4.2 MMOL/L (3.5-5.1); Total Protein 5.8 G/DL (6.4-8.3)
[2017-02-09 06:28] LABS: Calcium 7.9 MG/DL (8.5-10.1); Potassium 4.1 MMOL/L (3.5-5.1); Risk Ratio 2.71; VLDL CHOLESTEROL 13.4 MG/DL
[2017-02-09] MEDS: SODIUM BICARB INJ 150 MEQ in DEXTROSE 5% 1,000 ML IV SCH ×2 (06:29→16:44)
--- NOTE | 2017-02-09 06:38 | Cardiology Progress Note ---
Assessment and Plan (1) Dyspnea on exertion Status: Acute Assessment and plan: Stable at this point. This is probably angina equivalent now knowing his coronary anatomy. Current Visit: Yes (2) Anginal equivalent Status: Acute Assessment and plan: Symptomatology probably angiogram but now documented severe coronary artery disease. Current Visit: Yes (3) Abnormal cardiovascular function study Status: Acute Assessment and plan: Abnormal car perfusion study revealed ischemic abnormalities which is now been confirmed on cardiac catheterization. Current Visit: Yes (4) Hypertension Problem details: likely renovascularly driven. D/Cd losartan, start valsartan 160mg daily. Goal <130/80. Status: Chronic Assessment and plan: Blood pressures fluctuating we'll monitor this perioperatively. Current Visit: Yes (5) Peripheral vascular disease Status: Chronic Assessment and plan: This is chronic and he is had femorofemoral bypass surgery before. Current Visit: Yes (6) CVA (cerebral vascular accident) Status: Chronic Assessment and plan: This is actually recent. He is recovered well from this. Current Visit: Yes (7) Fatigue Status: Acute Assessment and plan: This is been a recent onset but slightly progressive and chronic. Probably related to his coronary artery disease. Certainly his renal dysfunction is been progressive may contribute to this. Current Visit: Yes (8) Chronic renal insufficiency Status: Chronic Assessment and plan: Patient's [facility] to hemodialysis. Current Visit: Yes (9) Coronary artery disease Status: Acute Assessment and plan: This is now confirmed on cardiac catheterizations for coronary bypass surgery tomorrow. Current Visit: Yes (10) Tobacco abuse Status: Chronic Assessment and plan: Patient needs to stop smoking certainly this contributed to his vascular disease. Current Visit: Yes (11) Anemia Status: Acute Assessment and plan: This is probably really somewhat chronic. May related to multiple factors but especially his chronic disease and his renal failure. Current Visit: Yes Qualifiers: Anemia type: unspecified type Qualified Code(s): D64.9 - Anemia, unspecified Cardiology - PN: Subj Interval history: Patient is doing well now post car catheterization. He is for bypass surgery tomorrow. He has not had any chest pain shortness of breath. He states he slept fairly well last night. Also yesterday he had a temporary dialysis catheter placed and right chest. He had dialysis yesterday. He is labwork is noted improved. Patient's lab work was better regard to his BUN and creatinine. His metabolic acidosis is better with him bicarbonate 22. Hospitalist service is being consulted for evaluation of his elevated glucoses which is really appears stable and his hemoglobin A1c is normal. It is also noted today that he is anemic which is progressed and his iron levels were low with a total capacity low. Some of this is chronic disease. Question whether this patient should have blood given today while at dialysis prior to bypass surgery. I discussed with the patient his coronary disease and plans. Exam (Progress Note) - Constitutional Vitals: Period Temp Pulse Resp BP Sys/Thomas Pulse Ox Last 24 Hr 97.6 F-99.1 F 66-82 16-20 128-211/72-107 94-97 Exam: General appearance: normal weight, no acute distress, patient sleeping on my arrival. Head exam: normal inspection, atraumatic Eye exam: There is no trauma. Ear exam: Anatomically normal. Normal auditory acuity to conversation. Neck exam: normal inspection no JVD. No carotid bruit. Trachea is in midline. Respiratory exam: clear to auscultation bilaterally posteriorly and anteriorly with good air movement. No rales, rhonchi or wheezes. Cardiovascular exam: regular rate and rhythm, no murmur or gallop or rub. No precordial lift. No bruits over the major arteries. Chest wall/torso: Anatomically normal. No tenderness, deformity Peripheral Pulses: 2+ throughout. GI/Abdominal exam: normal bowel sounds, soft and nontender, no abdominal bruits or pulsatile masses. Musculoskeletal/Extremities exam: normal inspection without edema or cyanosis. No deformities or trauma. Patient's right wrist cath site looks good. Neurological exam: alert, oriented X3. There is no gross neurologic deficits. Psychiatric exam: normal affect, normal mood. Cognitive function is grossly intact. Skin exam: Warm and dry. Result/EKG - Labs CBC & BMP: 02/09/17 05:03 02/09/17 05:03 Lab Results: I have reviewed the past 24 hour labs Labs: Laboratory Results - last 24 hr 02/08/17 02/08/17 02/08/17 09:01 09:04 09:04 WBC RBC Hgb Hct MCV MCH MCHC RDW Plt Count MPV Neut % (Auto) Lymph % (Auto) [place] % (Auto) Eos % (Auto) Baso % (Auto) Neut # (Auto) Lymph # (Auto) [place] # (Auto) Eos # (Auto) Baso # (Auto) Immature Gran % Nucleated RBC % Immature Gran # Nucleated RBCs # ABG pH ABG pCO2 ABG pO2 ABG HCO3 ABG Total CO2 ABG O2 Saturation ABG Base Excess Sodium Potassium Chloride Carbon Dioxide Anion Gap BUN Creatinine GFR Calculation BUN/Creatinine Ratio Glucose Hemoglobin A1c Calculated Osmolality Calcium Phosphorus Magnesium 2.0 Iron 62 L TIBC 210 L % Saturation 29.5 Total Bilirubin AST ALT Alkaline Phosphatase Total Protein Albumin Globulin Albumin/Globulin Ratio Triglycerides Cholesterol LDL Cholesterol VLDL Cholesterol HDL Cholesterol Heart Disease Risk Ratio PTH Intact 492.0 H Hepatitis A IgM Ab Negative Hep Bs Antigen Negative Hep B Core IgM Ab Negative Hepatitis C Antibody Negative Blood Type Antibody Screen Crossmatch 02/09/17 02/09/17 02/09/17 03:14 05:03 05:03 WBC RBC Hgb Hct MCV MCH MCHC RDW Plt Count MPV Neut % (Auto) Lymph % (Auto) [place] % (Auto) Eos % (Auto) Baso % (Auto) Neut # (Auto) Lymph # (Auto) [place] # (Auto) Eos # (Auto) Baso # (Auto) Immature Gran % Nucleated RBC % Immature Gran # Nucleated RBCs # ABG pH 7.423 ABG pCO2 34.3 L ABG pO2 67.9 L ABG HCO3 21.9 ABG Total CO2 23.0 ABG O2 Saturation 93.4 L ABG Base Excess -2.1 Sodium 149 H Potassium 4.2 Chloride 116 H Carbon Dioxide 23 Anion Gap 14.2 BUN 34 H Creatinine 4.40 H GFR Calculation 14 BUN/Creatinine Ratio 7.00 Glucose 95 Hemoglobin A1c Calculated Osmolality 303.1 Calcium 7.9 L Phosphorus Magnesium Iron TIBC % Saturation Total Bilirubin 0.50 AST 4 ALT 10 L Alkaline Phosphatase 73 Total Protein 5.8 L Albumin 3.0 L Globulin 2.8 Albumin/Globulin Ratio 1.0 L Triglycerides Cholesterol LDL Cholesterol VLDL Cholesterol HDL Cholesterol Heart Disease Risk Ratio PTH Intact Hepatitis A IgM Ab Hep Bs Antigen Hep B Core IgM Ab Hepatitis C Antibody Blood Type O POSITIVE Antibody Screen Negative Crossmatch See Detail 02/09/17 02/09/17 02/09/17 05:03 05:03 05:03 WBC 10.1 RBC 2.66 L Hgb 8.3 L Hct 24.6 L MCV 92.5 MCH 31 MCHC 33.7 RDW 15.5 Plt Count 232 MPV 11.0 Neut % (Auto) 74.5 H Lymph % (Auto) 13.8 L [place] % (Auto) 8.2 Eos % (Auto) 1.9 Baso % (Auto) 1.0 H Neut # (Auto) 7.5 H Lymph # (Auto) 1.4 [place] # (Auto) 0.8 Eos # (Auto) 0.2 Baso # (Auto) 0.1 Immature Gran % 0.6 Nucleated RBC % 0.0 Immature Gran # 0.06 Nucleated RBCs # 0.00 ABG pH ABG pCO2 ABG pO2 ABG HCO3 ABG Total CO2 ABG O2 Saturation ABG Base Excess Sodium 150 H Potassium 4.1 Chloride 116 H Carbon Dioxide 23 Anion Gap 15.1 H BUN 35 H Creatinine 4.40 H GFR Calculation 14 BUN/Creatinine Ratio 7.00 Glucose 94 Hemoglobin A1c 4.8 Calculated Osmolality 305.0 H Calcium 7.9 L Phosphorus Magnesium Iron TIBC % Saturation Total Bilirubin AST ALT Alkaline Phosphatase Total Protein Albumin Globulin Albumin/Globulin Ratio Triglycerides 67 Cholesterol 95 LDL Cholesterol 52.0 VLDL Cholesterol 13.4 HDL Cholesterol 35 L Heart Disease Risk Ratio 2.71 PTH Intact Hepatitis A IgM Ab Hep Bs Antigen Hep B Core IgM Ab Hepatitis C Antibody Blood Type Antibody Screen Crossmatch 02/09/17 02/09/17 05:03 Unknown WBC RBC Hgb Hct MCV MCH MCHC RDW Plt Count MPV Neut % (Auto) Lymph % (Auto) [place] % (Auto) Eos % (Auto) Baso % (Auto) Neut # (Auto) Lymph # (Auto) [place] # (Auto) Eos # (Auto) Baso # (Auto) Immature Gran % Nucleated RBC % Immature Gran # Nucleated RBCs # ABG pH ABG pCO2 ABG pO2 ABG HCO3 ABG Total CO2 ABG O2 Saturation ABG Base Excess Sodium 148 H Potassium 4.1 Chloride 115 H Carbon Dioxide 22 Anion Gap 15.1 H BUN 34 H Creatinine 4.30 H GFR Calculation 15 BUN/Creatinine Ratio 7.00 Glucose 94 Hemoglobin A1c Calculated Osmolality 301.3 Calcium 7.8 L Phosphorus 4.1 Magnesium Iron TIBC % Saturation Total Bilirubin AST ALT Alkaline Phosphatase Total Protein Albumin 3.0 L Globulin Albumin/Globulin Ratio Triglycerides Cholesterol LDL Cholesterol VLDL Cholesterol HDL Cholesterol Heart Disease Risk Ratio PTH Intact Hepatitis A IgM Ab Hep Bs Antigen Hep B Core IgM Ab Hepatitis C Antibody Blood Type O POSITIVE Antibody Screen Crossmatch - Impressions Impressions: Telemetry was sinus rhythm without documented dysrhythmias on telemetry. Quality Measures - VTE Contraindication to Pharmacological VTE Prophylaxis: High Risk of Bleeding
--- NOTE | 2017-02-09 08:12 | EKG Report ---
Stationary ECG Study [facility] Test Date: 02/09/2017 8:10:35 AM Pat Name: LISE BEAL Department: Room: 293 Gender: M [id number] Consultant: GENEVIEVE : 1950 Requested by: Yaya Peralta Order Number: [id number] Cristina MD: DANY ALVAREZ Intervals [place] Rate: 76 P: 58 AL: 174 QRS: 43 QRSD: 118 T: 217 QT: 416 QTc: 447 Interpretive Statements SINUS RHYTHM POSSIBLE LEFT ATRIAL ENLARGEMENT LEFT VENTRICULAR HYPERTROPHY AND ST-T CHANGE Electronically Signed On 02-09-17 10:46:09 CDT by DANY ALVAREZ [email or web address]
[2017-02-09] MEDS ORDERED: SODIUM CHLORIDE 0.9% 250 ML IV PRN (08:22)
--- NOTE | 2017-02-09 09:04 | Cardiothoracic Progress Note ---
Cardiothoracic Subjective Interval history: Patient was dialyzed yesterday and again today. He seems to be tolerating this well. He is going to receive 2 units of blood transfusion on dialysis today and I believe he will be as ready as he is going to be for surgery tomorrow Exam (Progress Note) - Constitutional Vitals: Period Temp Pulse Resp BP Sys/Thomas Pulse Ox Last 24 Hr 97.6 F-99.1 F 66-88 16-20 128-211/72-107 94-97 Result/EKG - Labs CBC & BMP: 02/09/17 05:03 02/09/17 05:03 Labs: Laboratory Results - last 24 hr 02/08/17 02/08/17 02/08/17 09:01 09:04 09:04 WBC RBC Hgb Hct MCV MCH MCHC RDW Plt Count MPV Neut % (Auto) Lymph % (Auto) [place] % (Auto) Eos % (Auto) Baso % (Auto) Neut # (Auto) Lymph # (Auto) [place] # (Auto) Eos # (Auto) Baso # (Auto) Immature Gran % Nucleated RBC % Immature Gran # Nucleated RBCs # ABG pH ABG pCO2 ABG pO2 ABG HCO3 ABG Total CO2 ABG O2 Saturation ABG Base Excess Sodium Potassium Chloride Carbon Dioxide Anion Gap BUN Creatinine GFR Calculation BUN/Creatinine Ratio Glucose Hemoglobin A1c Calculated Osmolality Calcium Phosphorus Magnesium 2.0 Iron 62 L TIBC 210 L % Saturation 29.5 Total Bilirubin AST ALT Alkaline Phosphatase Total Protein Albumin Globulin Albumin/Globulin Ratio Triglycerides Cholesterol LDL Cholesterol VLDL Cholesterol HDL Cholesterol Heart Disease Risk Ratio PTH Intact 492.0 H Hepatitis A IgM Ab Negative Hep Bs Antigen Negative Hep B Core IgM Ab Negative Hepatitis C Antibody Negative Blood Type Antibody Screen Crossmatch Blood Bank Comment 02/09/17 02/09/17 02/09/17 03:14 05:03 05:03 WBC RBC Hgb Hct MCV MCH MCHC RDW Plt Count MPV Neut % (Auto) Lymph % (Auto) [place] % (Auto) Eos % (Auto) Baso % (Auto) Neut # (Auto) Lymph # (Auto) [place] # (Auto) Eos # (Auto) Baso # (Auto) Immature Gran % Nucleated RBC % Immature Gran # Nucleated RBCs # ABG pH 7.423 ABG pCO2 34.3 L ABG pO2 67.9 L ABG HCO3 21.9 ABG Total CO2 23.0 ABG O2 Saturation 93.4 L ABG Base Excess -2.1 Sodium 149 H Potassium 4.2 Chloride 116 H Carbon Dioxide 23 Anion Gap 14.2 BUN 34 H Creatinine 4.40 H GFR Calculation 14 BUN/Creatinine Ratio 7.00 Glucose 95 Hemoglobin A1c Calculated Osmolality 303.1 Calcium 7.9 L Phosphorus Magnesium Iron TIBC % Saturation Total Bilirubin 0.50 AST 4 ALT 10 L Alkaline Phosphatase 73 Total Protein 5.8 L Albumin 3.0 L Globulin 2.8 Albumin/Globulin Ratio 1.0 L Triglycerides Cholesterol LDL Cholesterol VLDL Cholesterol HDL Cholesterol Heart Disease Risk Ratio PTH Intact Hepatitis A IgM Ab Hep Bs Antigen Hep B Core IgM Ab Hepatitis C Antibody Blood Type O POSITIVE Antibody Screen Negative Crossmatch See Detail Blood Bank Comment 02/09/17 02/09/17 02/09/17 05:03 05:03 05:03 WBC 10.1 RBC 2.66 L Hgb 8.3 L Hct 24.6 L MCV 92.5 MCH 31 MCHC 33.7 RDW 15.5 Plt Count 232 MPV 11.0 Neut % (Auto) 74.5 H Lymph % (Auto) 13.8 L Verm[place] % (Auto) 8.2 Eos % (Auto) 1.9 Baso % (Auto) 1.0 H Neut # (Auto) 7.5 H Lymph # (Auto) 1.4 Vermilion # (Auto) 0.8 Eos # (Auto) 0.2 Baso # (Auto) 0.1 Immature Gran % 0.6 Nucleated RBC % 0.0 Immature Gran # 0.06 Nucleated RBCs # 0.00 ABG pH ABG pCO2 ABG pO2 ABG HCO3 ABG Total CO2 ABG O2 Saturation ABG Base Excess Sodium 150 H Potassium 4.1 Chloride 116 H Carbon Dioxide 23 Anion Gap 15.1 H BUN 35 H Creatinine 4.40 H GFR Calculation 14 BUN/Creatinine Ratio 7.00 Glucose 94 Hemoglobin A1c 4.8 Calculated Osmolality 305.0 H Calcium 7.9 L Phosphorus Magnesium Iron TIBC % Saturation Total Bilirubin AST ALT Alkaline Phosphatase Total Protein Albumin Globulin Albumin/Globulin Ratio Triglycerides 67 Cholesterol 95 LDL Cholesterol 52.0 VLDL Cholesterol 13.4 HDL Cholesterol 35 L Heart Disease Risk Ratio 2.71 PTH Intact Hepatitis A IgM Ab Hep Bs Antigen Hep B Core IgM Ab Hepatitis C Antibody Blood Type Antibody Screen Crossmatch Blood Bank Comment 02/09/17 02/09/17 02/09/17 05:03 08:22 Unknown WBC RBC Hgb Hct MCV MCH MCHC RDW Plt Count MPV Neut % (Auto) Lymph % (Auto) [place] % (Auto) Eos % (Auto) Baso % (Auto) Neut # (Auto) Lymph # (Auto) [place] # (Auto) Eos # (Auto) Baso # (Auto) Immature Gran % Nucleated RBC % Immature Gran # Nucleated RBCs # ABG pH ABG pCO2 ABG pO2 ABG HCO3 ABG Total CO2 ABG O2 Saturation ABG Base Excess Sodium 148 H Potassium 4.1 Chloride 115 H Carbon Dioxide 22 Anion Gap 15.1 H BUN 34 H Creatinine 4.30 H GFR Calculation 15 BUN/Creatinine Ratio 7.00 Glucose 94 Hemoglobin A1c Calculated Osmolality 301.3 Calcium 7.8 L Phosphorus 4.1 Magnesium Iron TIBC % Saturation Total Bilirubin AST ALT Alkaline Phosphatase Total Protein Albumin 3.0 L Globulin Albumin/Globulin Ratio Triglycerides Cholesterol LDL Cholesterol VLDL Cholesterol HDL Cholesterol Heart Disease Risk Ratio PTH Intact Hepatitis A IgM Ab Hep Bs Antigen Hep B Core IgM Ab Hepatitis C Antibody Blood Type Cancelled O POSITIVE Antibody Screen Cancelled Crossmatch See Detail Blood Bank Comment Cancelled Quality Measures - VTE Contraindication to Pharmacological VTE Prophylaxis: High Risk of Bleeding
--- NOTE | 2017-02-09 09:09 | Dialysis Note ---
Dialysis Note - Dialysis Note S: Pt seen on dialysis. Denies c/o. States he feels better. O: VSS & AF. Hct 24. A: ESRD on CHD. Tolerating well s complications. P: Continue routine CHD initiation as prescribed. Transfuse 2u pRBCs on HD today. CABG planned for tomorrow. Will assess daily for HD indications and provide as needed.
[2017-02-09] MEDS: NICOTINE 21 MG/24 HR PATCH TRANSDERM SCH (11:57)
[2017-02-09] MEDS: CALCIUM ACETATE 667 MG CAPSULE PO SCH ×3 (11:57→17:36)
[2017-02-09] MEDS: CALCITRIOL 0.25 MCG CAPSULE PO SCH (12:00)
[2017-02-09] MEDS: VALSARTAN 160 MG TABLET PO SCH (12:00)
[2017-02-09] MEDS: PANTOPRAZOLE 40 MG TABLET PO SCH (12:00)
--- NOTE | 2017-02-09 13:44 | Hospitalist Progress Note ---
Assessment and Plan (1) Elevated glucose Status: Resolved Assessment and plan: Resolved Current Visit: Yes (2) Hypertension Problem details: likely renovascularly driven. D/Cd losartan, start valsartan 160mg daily. Goal <130/80. Status: Chronic Assessment and plan: Nephrology managing Current Visit: Yes (3) CVA (cerebral vascular accident) Status: Chronic Assessment and plan: Per patient 6 weeks ago Current Visit: Yes (4) ESRD needing dialysis Problem details: Discussed with vascular surgeon, Dr Sergio GIBSON. Plan for tunneled HD catheter placement today with initiation of HD daily for 3 days. Low and slow. Optimize medically for CABG. Daily HD x 3 days. 2hrs today, 3hrs tomorrow, 4hrs the next day. No UF today. Heparin free today. Status: Acute Assessment and plan: HD initiated 02/08/17. Current Visit: Yes Hospitalist: Subjective Interval history: Patient s/p HD today. The plan is for CABG tomorrow. Hemoglobin A1C is normal, he does not have diabetes. His hypertension is being managed by Nephrology. I will now follow from afar. Please call with any questions. Exam - Constitutional Vitals: Period Temp Pulse Resp BP Sys/Thomas Pulse Ox Last 24 Hr 97.3 F-99.1 F 67-88 16-20 128-211/72-107 94-97 General appearance: normal weight - Head Head exam: Present: normocephalic, atraumatic - Eye Eye exam: Present: EOMI Pupils: Present: DEB - ENT ENT exam: Present: normal exam - Neck Neck exam: Present: normal inspection - Respiratory Respiratory exam: Present: clear to auscultation bilaterally. Absent: rhonchi, wheezes - Cardiovascular Cardiovascular exam: Present: regular rate and rhythm - GI/Abdominal GI/Abdominal exam: Present: normal bowel sounds, soft. Absent: tenderness - Extremities Exam Extremities exam: Present: normal inspection - Back Exam Back exam: Present: normal inspection - Neurological Exam Neurological exam: Present: alert, oriented X3 - Psychiatric Psychiatric exam: Present: normal affect, normal mood - Skin Skin exam: Present: warm, intact Results - Labs CBC & BMP: 02/09/17 05:03 02/09/17 05:03 Quality Measures - VTE Contraindication to Pharmacological VTE Prophylaxis: High Risk of Bleeding
[2017-02-09] MEDS: ACETAMINOPHEN 325 MG TABLET PO PRN (13:53)
[2017-02-09] MEDS: CHLORHEXIDINE 4% SOLN 118 ML BOTTLE TOP SCH ×3 (13:54→20:22)
[2017-02-09] MEDS: CHLORHEXIDINE 0.12% ORAL RINSE 60 ML BOTTLE SWISH/SPIT SCH ×2 (13:55→20:22)
--- NOTE | 2017-02-09 14:35 | XRay Report ---
XR chest 2V Indication: Coronary artery disease. Chest 2 views: Comparison 02/08/2017. Heart size and pulmonary edema have both decreased significantly. Calcified atheromatous disease the aorta is stable. Dialysis catheter is unchanged. No new infiltrates. Pleural spaces are clear. There is scarring or atelectasis lateral right lung base. Impression: 1. Resolution of fluid overload. 2. Right basilar atelectasis. PROCEDURE INTERPRETED AT [facility] DEPARTMENT OF RADIOLOGY Final Report Signed by: Adan Patino M.D.
[2017-02-09] MEDS: SODIUM CHLORIDE 0.9% 1,000 ML IV SCH (16:43)
[2017-02-09] MEDS: ENOXAPARIN 30 MG/0.3 ML SYRINGE SUBCUT SCH (17:37)
[2017-02-09] MEDS: ASPIRIN EC 81 MG TABLET PO SCH (20:22)
[2017-02-09] MEDS: ATORVASTATIN 20 MG TABLET PO SCH (20:22)
[2017-02-10] MEDS: SODIUM BICARB INJ 150 MEQ in DEXTROSE 5% 1,000 ML IV SCH ×2 (01:32→09:30)
[2017-02-10] MEDS ORDERED: PAPAVERINE 60 MG/2 ML VIAL ONE (04:37)
[2017-02-10] MEDS ORDERED: VANCOMYCIN 1,000 MG VIAL ONE (04:38)
[2017-02-10 04:52] LABS: Basophils # 0.1 10*3/uL (0.0-0.2); Basophils % 0.9 % (0.0-0.8); Eosinophils # 0.2 10*3/uL (0.0-0.87); Eosinophils % 1.7 % (0.00-10.9); Hematocrit 31.5 VOL% (42.0-52.0); Hemoglobin 10.3 GM/DL (14.0-18.0); Immature Granulocytes % 0.6 %; Immature Granulocytes Absolute 0.06 #; Lymphocytes # 1.9 10*3/uL (1.4-4.0); Lymphocytes % 18.6 % (21.2-54.2); Mean Corpuscular HGB Conc 32.7 GM/DL (32-36); Mean Corpuscular Hemoglobin 31 PG (27-34); Mean Corpuscular Volume 93.2 FL (87-102); Mean Platelet Volume 10.6 FL (9.6-12.0); Monocytes # 1.1 10*3/uL (0.11-0.8); Monocytes % 10.8 % (1.7-12.7); Neutrophils % 67.4 % (38.7-73.9); Platelet Count 203 T/CUMM (130-400); Red Blood Count 3.38 MC/CUMM (3.8-5.5); Red Cell Distribution Width 15.7 % (9.3-17.3); White Blood Count 10.4 T/CUMM (4-12)
[2017-02-10] MEDS ORDERED: FAMOTIDINE 20 MG TABLET PO ONE (05:30)
[2017-02-10] MEDS ORDERED: LORazepam 0.5 MG TABLET PO ONE (05:30)
[2017-02-10] MEDS: VALSARTAN 160 MG TABLET PO SCH ×2 (05:39→09:00)
[2017-02-10] MEDS ORDERED: CEFUROXIME INJ 1,500 MG in SODIUM CHLORIDE 0.9% 100 ML IV ONE (06:00)
[2017-02-10] MEDS ORDERED: PHENYLEPHRINE DRIP 40 MG/250 ML PREMIX IV ONE (07:23)
[2017-02-10] MEDS ORDERED: CALCIUM CHLORIDE 1,000 MG/10 ML SYRINGE IV ONE ×2 (07:23→11:45)
[2017-02-10] MEDS ORDERED: NITROPRUSSIDE 50 MG/2 ML VIAL ONE (07:23)
[2017-02-10] MEDS ORDERED: POTASSIUM CHLORIDE RIDER 0 ML IV ONE (07:24)
[2017-02-10 07:38] LABS: ABG Base Excess -2.6 MMOL/L (-2.5-2.5); ABG HCO3 22.3 MMOL/L (20-26); ABG Oxygen Saturation 99.2 % (95-100); ABG PCO2 41.2 MM HG (35-48); ABG PH 7.351 (7.35-7.45); ABG TCO2 20.6 MMOL/L (23-27); Glucose Heart Surgery 134 MG/DL (74-106); Hematocrit Heart Surgery 33.5 PERCENT (42-52); Hemoglobin Heart Surgery 10.8 G/DL (14.0-18.0); Ionized Calcium Arterial 1.14 MMOL/L (1.21-1.46); PCO2 Patient Temp Arterial 41.2 MMHG; PH Patient Temp Arterial 7.351; Patient Temperature 37 CELCIUS; Potassium Heart/CVR 3.8 MMOL/L (3.5-5.1); Sodium Heart/CVR 140 MMOL/L (135-145)
[2017-02-10 07:43] LABS: Apearance,Urine CLEAR (Clear); Bilirubin,Urine Negative (Negative); Blood, Urine Small mg/dL (Negative); Glucose,Urine (UA) Negative (Negative); Ketones,Urine Negative (Negative); Nitrite,Urine Negative (Negative); Protein,Urine 100 MG/DL; RBC,Urine <1 /HPF (0-4); Squamous Epithelial Cell,Urine Occasional /HPF (0-10); Urine Color Straw (Yellow); Urine Specific Gravity 1.006 (1.001-1.035); Urine Urobilinogen < 2.0 EU/DL (0.2-1.0); WBC,Urine <1 /HPF (0-6)
[2017-02-10 08:58] LABS: Hematocrit Heart Surgery 23.5 PERCENT (42-52); Hemoglobin Heart Surgery 7.5 G/DL (14.0-18.0); PCO2 Patient Temp Venous 36.4 MM HG; PH Patient Temp Venous 7.379; PO2 Patient Temp Venous 35.5 MM HG; Potassium Heart/CVR 3.9 MMOL/L (3.5-5.1); VBG Base Excess -3.1 MEQ/L (0-4); VBG HCO3 21.6 MEQ/L (24-28); VBG Oxygen Saturation 77.8 %; VBG PCO2 42.1 MMHG (41-51); VBG PH 7.337; VBG PO2 43.7 MMHG (17-40)
[2017-02-10] MEDS: CHLORHEXIDINE 0.12% ORAL RINSE 60 ML BOTTLE SWISH/SPIT SCH ×2 (09:00→21:21)
[2017-02-10] MEDS: CALCITRIOL 0.25 MCG CAPSULE PO SCH (09:00)
[2017-02-10] MEDS: CALCIUM ACETATE 667 MG CAPSULE PO SCH (09:00)
[2017-02-10] MEDS: NICOTINE 21 MG/24 HR PATCH TRANSDERM SCH (09:00)
[2017-02-10] MEDS: PANTOPRAZOLE 40 MG TABLET PO SCH (09:00)
--- NOTE | 2017-02-10 09:32 | Nephrology Progress Note ---
Nephrology - PN: Subj Interval history: Pt in OR on am rounds. Tolerated HD yesterday s complications (day #2/3 daily initiation). Post transfusion Hct appropriate rise s/p 2u pRBCs. No acute overnight events per chart, nursing staff. Exam (PN)-Nephrology - Vital Signs Vital signs: Period Temp Pulse Resp BP Sys/Thomas Pulse Ox Last 24 Hr 97.3 F-98.5 F 73-80 16-20 123-156/74-91 93-96 Exam: not available for examination - Lab 02/10/17 07:29 02/09/17 05:03 Most recent lab results ABG pH 7.351 (7.35-7.45) 02/10/17 07:29 ABG pCO2 41.2 MM HG (35-48) 02/10/17 07:29 ABG pO2 171.0 MM HG (80-95) H 02/10/17 07:29 ABG HCO3 22.3 MMOL/L (20-26) 02/10/17 07:29 ABG O2 Saturation 99.2 % (95-100) 02/10/17 07:29 Calcium 7.9 MG/DL (8.5-10.1) L 02/09/17 05:03 Phosphorus 4.1 MG/DL (2.5-4.9) 02/09/17 05:03 Magnesium 2.0 MG/DL (1.8-2.4) 02/08/17 09:04 Assessment and Plan (1) ESRD needing dialysis Problem details: Plan HD post op. Status: Acute Assessment and plan: CHD p surgery. 4 hrs, UF as tolerated by hemodynamics. Current Visit: Yes (2) Hypertension Problem details: likely renovascularly driven. D/Cd losartan, start valsartan 160mg daily. Goal <130/80. Status: Chronic Current Visit: Yes
[2017-02-10 09:37] LABS: Hematocrit Heart Surgery 27.4 PERCENT (42-52); Hemoglobin Heart Surgery 8.8 G/DL (14.0-18.0); PCO2 Patient Temp Venous 31.4 MM HG; PH Patient Temp Venous 7.384; PO2 Patient Temp Venous 38.6 MM HG; Potassium Heart/CVR 4.1 MMOL/L (3.5-5.1); VBG Base Excess -5.6 MEQ/L (0-4); VBG HCO3 19.5 MEQ/L (24-28); VBG PCO2 34.5 MMHG (41-51); VBG PH 7.355; VBG PO2 44.3 MMHG (17-40)
[2017-02-10 10:23] LABS: ABG Base Excess -4.6 MMOL/L (-2.5-2.5); ABG HCO3 20.6 MMOL/L (20-26); ABG Oxygen Saturation 99.3 % (95-100); ABG PCO2 38.5 MM HG (35-48); ABG TCO2 19.2 MMOL/L (23-27); Glucose Heart Surgery 222 MG/DL (74-106); Hematocrit Heart Surgery 27.9 PERCENT (42-52); Ionized Calcium Arterial 1.11 MMOL/L (1.21-1.46); PCO2 Patient Temp Arterial 38.5 MMHG; Patient Temperature 37 CELCIUS; Sodium Heart/CVR 139 MMOL/L (135-145)
[2017-02-10] MEDS ORDERED: PHENYLEPHRINE DRIP 20 MG/250 ML PREMIX IV ONE (10:36)
[2017-02-10] MEDS ORDERED: PROTAMINE SULFATE 250 MG/25 ML VIAL IV ONE (10:36)
[2017-02-10] MEDS ORDERED: DEXTROSE 5% KCL 20 MEQ 20 MEQ/1,000 ML BAG IV ONE (10:36)
[2017-02-10] MEDS ORDERED: SODIUM BICARBONATE 50 MEQ/50 ML SYRINGE IV ONE (10:36)
[2017-02-10] MEDS ORDERED: ALBUMIN 25% 25 GM/100 ML VIAL IV ONE (10:36)
[2017-02-10] MEDS ORDERED: MANNITOL 12.5 GM/50 ML VIAL IV ONE (10:37)
[2017-02-10] MEDS ORDERED: MAGNESIUM SULFATE 1 GM/2 ML VIAL ONE (10:37)
[2017-02-10] MEDS ORDERED: methylPREDNISolone SOD SUC 1,000 MG/8 ML VIAL ONE (10:37)
[2017-02-10] MEDS ORDERED: HEPARIN 10,000 UNIT/10 ML VIAL ONE (10:37)
[2017-02-10] MEDS ORDERED: THROMBIN TOPICAL (RECOMBINANT) 5,000 UNIT VIAL TOP ONE (10:51)
[2017-02-10] MEDS ORDERED: NITROGLYCERIN DRIP 50 MG/250 ML BOTTLE IV ONE (11:17)
[2017-02-10] MEDS: SODIUM CHLORIDE 0.45% 1,000 ML IV SCH ×2 (11:30)
[2017-02-10] MEDS ORDERED: MIDAZOLAM 10 MG/2 ML VIAL IV PRN (11:32)
[2017-02-10] MEDS ORDERED: LACTATED RINGERS 250 ML IV PRN (11:32)
[2017-02-10] MEDS ORDERED: PHENYLEPHRINE DRIP 40 MG/250 ML PREMIX IV PRN (11:32)
[2017-02-10] MEDS ORDERED: MAGNESIUM SULF RIDER 2 GM in PREMIX 1 EACH IV PRN (11:32)
[2017-02-10] MEDS ORDERED: VECURONIUM 10 MG VIAL IV PRN ×2 (11:32)
[2017-02-10] MEDS ORDERED: INSULIN REGULAR 100 UNIT/ML IV PRN (11:32)
[2017-02-10] MEDS ORDERED: NITROPRUSSIDE 100 MG in DEXTROSE 5% 250 ML IV PRN (11:32)
[2017-02-10] MEDS ORDERED: INSULIN REGULAR 100 UNIT/ML IV ONE (11:32)
[2017-02-10] MEDS ORDERED: ALBUMIN 5% 12.5 GM in PREMIX 1 EACH IV PRN (11:32)
[2017-02-10] MEDS ORDERED: POTASSIUM CHLORIDE RIDER 20 MEQ in PREMIX 1 EACH IV PRN (11:32)
[2017-02-10] MEDS ORDERED: ACETAMINOPHEN 650 MG SUPP RECTAL PRN (11:32)
[2017-02-10] MEDS ORDERED: CALCIUM CHLORIDE 1,000 MG/10 ML SYRINGE IV PRN (11:32)
[2017-02-10] MEDS ORDERED: MAGNESIUM SULF RIDER 4 GM in PREMIX 1 EACH IV PRN (11:32)
[2017-02-10] MEDS ORDERED: POTASSIUM CHLORIDE RIDER 10 MEQ in PREMIX 1 EACH IV PRN (11:32)
[2017-02-10] MEDS ORDERED: MORPHINE 10 MG/1 ML VIAL IV PRN (11:32)
[2017-02-10] MEDS ORDERED: DEXTROSE 50% 25 GM/50 ML VIAL IV PRN ×2 (11:32)
[2017-02-10] MEDS ORDERED: MIDAZOLAM 2 MG/2 ML VIAL IV PRN (11:32)
[2017-02-10] MEDS ORDERED: ONDANSETRON 4 MG/2 ML VIAL IV PRN (11:32)
--- NOTE | 2017-02-10 11:40 | Operative Note ---
Date of procedure: 02/10/17 Pre-op diagnosis: coronary artery disease Post-op diagnosis: same Procedure: Procedure: Coronary artery bypass grafting 3 with left internal mammary grafted anterior descending coronary artery and saphenous vein grafts to the intermediate and obtuse marginal coronary arteries. Findings: Patient is a 67-year-old man who presented with substernal chest discomfort and fatigue and underwent cardiac evaluation including cardiac catheterization which demonstrated critical coronary artery disease. Patient was referred for bypass surgery and its time of surgery left ventricular function was noted to be him modestly impaired. Left internal artery graft was placed to the anterior descending coronary artery and saphenous vein grafts were placed to the obtuse marginal and intermediate coronary arteries. All the distal arteries were free of disease at the site of anastomosis. Patient tolerated procedure well was returned recovery in satisfactory condition. Procedure: Patient brought to the operating room placed on the operating table in supine position. After satisfactory induction of general anesthesia the chest abdomen and legs were prepped and draped in a sterile fashion. The greater saphenous vein was harvested from the left lower leg and prepared as an arterial graft. The incision in the leg was closed with 3-0 subcutaneous Monopril and 3-0 subcuticular Monocryl. Standard sternotomy incision was made and the sternum was divided and the heart suspended in a pericardial cradle. Left internal mammary artery was dissected free from its position in the anterior chest wall and prepared as an arterial graft. Patient was prepared for cardiopulmonary bypass with systemic heparinization and cannulation of the ascending aorta and right atrium. Cardiopulmonary bypass was begun and the aorta was crossclamped and the heart arrested with cardioplegia solution injected into the aortic root. The heart was protected during the period of crossclamping with topical saline slush. Distal anastomoses were carried out as noted above and then the aorta was unclamped reestablished and cardiac action. Proximal anastomoses were constructed between the saphenous vein grafts and the ascending aorta. Following this the patient was weaned from cardiopulmonary bypass without difficulty and heparin effect reversed with protamine and decannulation carried out with the defects in the ascending aorta and right atrium closed with 3-0 Prolene. Operative field was inspected for hemostasis and this was considered adequate incision was closed with interrupted stainless steel wire and the sternum and 0 Monopril and the presternal fascia and 3-0 subcuticular Monocryl. 2 chest tubes were left in the anterior mediastinum and brought out through separate stab incisions. Sterile dressings were applied and the patient was returned to recovery in satisfactory condition. Surgeon / Physician: Yaya Sky Estimated blood loss: other (unable to determine because of cardiopulmonary bypass) Condition: stable Disposition: ICU Results - Labs CBC & BMP: 02/10/17 10:15 02/09/17 05:03 Discharge Plan - Discharge Medications No Action NIFEdipine XL TAB [Procardia Xl] 90 mg PO BEDTIME Losartan [Cozaar] 50 mg PO BEDTIME Clopidogrel [Plavix] 75 mg PO BEDTIME Atorvastatin [Lipitor] 20 mg PO BEDTIME Aspirin EC Tab 81 mg PO BEDTIME - Follow Up or Referral - Forms/Instructions
[2017-02-10] MEDS ORDERED: LIDOCAINE 1% 5 ML VIAL ONE (11:45)
[2017-02-10] MEDS ORDERED: ESMOLOL 100 MG/10 ML VIAL IV ONE (11:45)
[2017-02-10] MEDS ORDERED: PHENYLEPHRINE 1 MG/10 ML SYRINGE IV ONE (11:45)
[2017-02-10] MEDS ORDERED: ETOMIDATE 20 MG/10 ML VIAL IV ONE (11:45)
[2017-02-10] MEDS: NITROGLYCERIN DRIP 50 MG/250 ML BOTTLE IV SCH (11:45)
[2017-02-10] MEDS ORDERED: AMINOCAPROIC ACID 5,000 MG/20 ML VIAL IV ONE (11:45)
[2017-02-10] MEDS ORDERED: VECURONIUM 10 MG VIAL IV ONE (11:45)
[2017-02-10] MEDS ORDERED: PROTAMINE SULFATE 50 MG/5 ML VIAL IV ONE ×2 (11:46→11:50)
[2017-02-10 11:52] LABS: Basophils % 0.3 % (0.0-0.8); Hematocrit 24.5 VOL% (42.0-52.0); Mean Corpuscular HGB Conc 33.1 GM/DL (32-36)
[2017-02-10 11:56] LABS: ABG Base Excess -4.6 MMOL/L (-2.5-2.5); ABG HCO3 20.6 MMOL/L (20-26); ABG Oxygen Saturation 99.8 % (95-100); ABG PCO2 41.4 MM HG (35-48); ABG PH 7.317 (7.35-7.45); ABG TCO2 19.8 MMOL/L (23-27); Glucose Heart Surgery 205 MG/DL (74-106); Hematocrit Heart Surgery 25.7 PERCENT (42-52); Hemoglobin Heart Surgery 8.3 G/DL (14.0-18.0); Potassium Heart/CVR 3.8 MMOL/L (3.5-5.1)
[2017-02-10 11:57] LABS: Basophils # 0.1 10*3/uL (0.0-0.2); Eosinophils # 0.1 10*3/uL (0.0-0.87); Eosinophils % 0.4 % (0.00-10.9); Immature Granulocytes % 1.1 %; Immature Granulocytes Absolute 0.16 #; Lymphocytes # 0.7 10*3/uL (1.4-4.0); Lymphocytes % 4.6 % (21.2-54.2); Mean Corpuscular Hemoglobin 31 PG (27-34); Mean Corpuscular Volume 93.9 FL (87-102); Mean Platelet Volume 10.9 FL (9.6-12.0); Monocytes # 0.8 10*3/uL (0.11-0.8); Monocytes % 5.5 % (1.7-12.7); Neutrophils % 88.1 % (38.7-73.9); Red Blood Count 2.61 MC/CUMM (3.8-5.5); Red Cell Distribution Width 16.1 % (9.3-17.3); White Blood Count 14.7 T/CUMM (4-12)
[2017-02-10 11:58] LABS: Hemoglobin 8.1 GM/DL (14.0-18.0); Platelet Count 192 T/CUMM (130-400)
[2017-02-10] MEDS ORDERED: SEVOFLURANE 1 UNIT/15 MINUTE INH ONE (11:58)
[2017-02-10] MEDS ORDERED: SUFentanil 250 MCG/5 ML AMP ONE (11:58)
[2017-02-10] MEDS ORDERED: MIDAZOLAM 10 MG/2 ML VIAL ONE (11:59)
[2017-02-10] MEDS ORDERED: SODIUM CHLORIDE 0.9% 2,000 ML IV ONE (11:59)
[2017-02-10] MEDS ORDERED: ePHEDrine 50 MG/ML AMP ONE (11:59)
[2017-02-10] MEDS ORDERED: SODIUM CHLORIDE 0.9% 250 ML IV ONE (11:59)
[2017-02-10] MEDS ORDERED: INSULIN REGULAR DRIP 100 ML IV SCH (12:00)
[2017-02-10 12:02] LABS: INR 1.1; PT Patient Result 11.8 SECS; Partial Thromboplastin Time 29.3 SECS (0-40)
[2017-02-10 12:12] LABS: Band Neutrophils 9 % (0-10); Hypochromasia 1+; Lymphocytes 5 % (20-55); Microcytosis 1+; Platelet Estimate Adequate; Segmented Neutrophils 84 % (50-85); Total Cells Counted 100
[2017-02-10 12:41] LABS: Bilirubin,Total 0.4 MG/DL (0.2-1.0); Calcium 7.5 MG/DL (8.5-10.1); Osmolality,Calculated 293.8 MOS/KG (273-304); Potassium 3.9 MMOL/L (3.5-5.1); Total Protein 5.6 G/DL (6.4-8.3)
[2017-02-10 12:49] LABS: CKMB % 7.8 %
[2017-02-10 12:51] LABS: Troponin I Only 9.62 NG/ML (0.00-0.045)
[2017-02-10 13:16] LABS: ABG HCO3 20.3 MMOL/L (20-26); ABG Oxygen Saturation 98.1 % (95-100); ABG PCO2 40.7 MM HG (35-48); ABG PH 7.318 (7.35-7.45); ABG TCO2 19.2 MMOL/L (23-27); Glucose Heart Surgery 174 MG/DL (74-106); Hematocrit Heart Surgery 30.6 PERCENT (42-52); Hemoglobin Heart Surgery 9.9 G/DL (14.0-18.0); Potassium Heart/CVR 3.9 MMOL/L (3.5-5.1)
--- NOTE | 2017-02-10 13:32 | XRay Report ---
XR chest 1V portable Indication: Line placement Comparison: Chest x-ray dated February 09, 2017 Technique: Single frontal view of the chest Findings: Endotracheal tube tip proximally 5 cm above the carole. Left and right internal jugular approach central venous catheters terminate over the SVC. Patient is status post sternotomy. Mediastinal drains noted. Mild bibasilar atelectasis and probable small bilateral pleural fluid. There is elevation of the right hemidiaphragm. Osseous structures appear grossly unchanged. IMPRESSION: Status post sternotomy.Mild bibasilar atelectasis and probable small bilateral pleural fluid. There is elevation of the right hemidiaphragm. PROCEDURE INTERPRETED AT [facility] DEPARTMENT OF RADIOLOGY Final Report Signed by: Dr Anthony Limon
[2017-02-10 14:11] LABS: ABG Base Excess -4.4 MMOL/L (-2.5-2.5); ABG HCO3 20.9 MMOL/L (20-26); ABG Oxygen Saturation 97.5 % (95-100); ABG PCO2 39.4 MM HG (35-48); ABG PH 7.343 (7.35-7.45); ABG PO2 108.8 MM HG (80-95); ABG TCO2 22.1 MMOL/L (23-27); Glucose Heart Surgery 152 MG/DL (74-106); Hemoglobin Heart Surgery 9.7 G/DL (14.0-18.0); Potassium Heart/CVR 4.1 MMOL/L (3.5-5.1)
[2017-02-10 15:08] LABS: ABG Base Excess -4.9 MMOL/L (-2.5-2.5); ABG HCO3 20.3 MMOL/L (20-26); ABG Oxygen Saturation 96.9 % (95-100); ABG PCO2 38.4 MM HG (35-48); ABG PH 7.335 (7.35-7.45); ABG TCO2 18.8 MMOL/L (23-27); Glucose Heart Surgery 151 MG/DL (74-106); Hematocrit Heart Surgery 30.1 PERCENT (42-52); Hemoglobin Heart Surgery 9.7 G/DL (14.0-18.0); Potassium Heart/CVR 4.2 MMOL/L (3.5-5.1)
[2017-02-10 16:10] LABS: ABG Base Excess -4.8 MMOL/L (-2.5-2.5); ABG HCO3 20.5 MMOL/L (20-26); ABG Oxygen Saturation 96.1 % (95-100); ABG PCO2 38.5 MM HG (35-48); ABG PH 7.344 (7.35-7.45); ABG PO2 85.1 MM HG (80-95); ABG TCO2 21.7 MMOL/L (23-27); Glucose Heart Surgery 138 MG/DL (74-106); Hemoglobin Heart Surgery 10.4 G/DL (14.0-18.0); Potassium Heart/CVR 4.3 MMOL/L (3.5-5.1)
--- NOTE | 2017-02-10 16:31 | Anesthesia ---
Anesthesia Post OP - Post Ansesthetic Evaluation Patient seen in post op: Yes Resp: other (vent) CV: other (NTG infus) Mental: other (sedated) Temp: within normal limits [id number]: within normal limits Nausea and Vomiting: within normal limits Pain: within normal limits
[2017-02-10] MEDS ORDERED: FUROSEMIDE 40 MG/4 ML VIAL IV ONE (16:42)
[2017-02-10 18:25] LABS: ABG HCO3 19.4 MMOL/L (20-26); ABG Oxygen Saturation 96.7 % (95-100); ABG PCO2 38.3 MM HG (35-48); ABG PH 7.317 (7.35-7.45); ABG PO2 88.8 MM HG (80-95); Glucose Heart Surgery 154 MG/DL (74-106); Hematocrit Heart Surgery 31.1 PERCENT (42-52); Hemoglobin Heart Surgery 10.1 G/DL (14.0-18.0); Potassium Heart/CVR 4.3 MMOL/L (3.5-5.1)
[2017-02-10] MEDS ORDERED: SODIUM BICARBONATE 50 MEQ/50 ML VIAL IV ONE (18:34)
[2017-02-10] MEDS ORDERED: SODIUM BICARBONATE 50 MEQ/50 ML VIAL IV PRN (18:34)
[2017-02-10] MEDS: CEFUROXIME INJ 1,500 MG in SODIUM CHLORIDE 0.9% 100 ML IV SCH (19:15)
[2017-02-10 19:41] LABS: ABG Base Excess -4.9 MMOL/L (-2.5-2.5); ABG HCO3 20.3 MMOL/L (20-26); ABG PCO2 39.2 MM HG (35-48); ABG PH 7.329 (7.35-7.45); ABG PO2 81.8 MM HG (80-95); Glucose Heart Surgery 142 MG/DL (74-106); Hematocrit Heart Surgery 30.3 PERCENT (42-52); Hemoglobin Heart Surgery 9.8 G/DL (14.0-18.0); Potassium Heart/CVR 4.1 MMOL/L (3.5-5.1)
[2017-02-10 20:21] LABS: CKMB % 7.7 %
[2017-02-10 20:31] LABS: Troponin I Only 13.6 NG/ML (0.00-0.045)
[2017-02-11 00:06] LABS: ABG Base Excess -3.9 MMOL/L (-2.5-2.5); ABG HCO3 21.4 MMOL/L (20-26); ABG Oxygen Saturation 94.2 % (95-100); ABG PCO2 39.9 MM HG (35-48); ABG PH 7.348 (7.35-7.45); ABG PO2 73.4 MM HG (80-95); ABG TCO2 22.7 MMOL/L (23-27); Glucose Heart Surgery 145 MG/DL (74-106); Hemoglobin Heart Surgery 10.1 G/DL (14.0-18.0); Potassium Heart/CVR 4.3 MMOL/L (3.5-5.1)
[2017-02-11 04:07] LABS: ABG Base Excess -5.5 MMOL/L (-2.5-2.5); ABG HCO3 19.8 MMOL/L (20-26); ABG Oxygen Saturation 93.6 % (95-100); ABG PCO2 39.5 MM HG (35-48); ABG PH 7.318 (7.35-7.45); ABG PO2 70.8 MM HG (80-95); ABG TCO2 18.6 MMOL/L (23-27); Glucose Heart Surgery 130 MG/DL (74-106); Hematocrit Heart Surgery 30.1 PERCENT (42-52); Hemoglobin Heart Surgery 9.7 G/DL (14.0-18.0); Potassium Heart/CVR 4.2 MMOL/L (3.5-5.1)
[2017-02-11 04:13] LABS: Basophils % 0.1 % (0.0-0.8); Hematocrit 27.7 VOL% (42.0-52.0); Hemoglobin 9.2 GM/DL (14.0-18.0); Immature Granulocytes % 0.7 %; Immature Granulocytes Absolute 0.12 #; Lymphocytes # 0.6 10*3/uL (1.4-4.0); Lymphocytes % 3.5 % (21.2-54.2); Mean Corpuscular HGB Conc 33.2 GM/DL (32-36); Mean Corpuscular Hemoglobin 31 PG (27-34); Mean Corpuscular Volume 93.3 FL (87-102); Mean Platelet Volume 10.9 FL (9.6-12.0); Monocytes # 1.2 10*3/uL (0.11-0.8); Monocytes % 7.3 % (1.7-12.7); Neutrophils # 14.8 10*3/uL (1.4-7.4); Neutrophils % 88.4 % (38.7-73.9); Platelet Count 151 T/CUMM (130-400); Red Blood Count 2.97 MC/CUMM (3.8-5.5); Red Cell Distribution Width 16.5 % (9.3-17.3); White Blood Count 16.7 T/CUMM (4-12)
[2017-02-11 04:40] LABS: Alanine Aminotransferase 15 U/L (16-61); Albumin 2.9 G/DL (3.4-5.0); Alkaline Phosphatase 56 U/L (45-117); Aspartate Amino Transferase 36 U/L (0-37); Bilirubin,Direct 0.1 MG/DL (0.0-0.20); Bilirubin,Total < 0.39 MG/DL (0.2-1.0); Blood Urea Nitrogen 33 MG/DL (7-18); Calcium 8.1 MG/DL (8.5-10.1); Glucose 127 MG/DL (74-106); Magnesium 2.2 MG/DL (1.8-2.4); Potassium 4.4 MMOL/L (3.5-5.1); Sodium 143 MMOL/L (136-145); Total Protein 5.3 G/DL (6.4-8.3)
[2017-02-11 04:41] LABS: CKMB % 8.7 %
[2017-02-11 04:45] LABS: Troponin I Only 16.1 NG/ML (0.00-0.045)
[2017-02-11 05:25] LABS: ABG Base Excess -5.6 MMOL/L (-2.5-2.5); ABG HCO3 19.8 MMOL/L (20-26); ABG Oxygen Saturation 97.3 % (95-100); ABG PCO2 37.3 MM HG (35-48); ABG PH 7.332 (7.35-7.45); ABG PO2 94.5 MM HG (80-95); ABG TCO2 18.2 MMOL/L (23-27); Glucose Heart Surgery 120 MG/DL (74-106); Hematocrit Heart Surgery 29.3 PERCENT (42-52); Hemoglobin Heart Surgery 9.5 G/DL (14.0-18.0); Potassium Heart/CVR 4.3 MMOL/L (3.5-5.1)
--- NOTE | 2017-02-11 05:53 | Cardiology Progress Note ---
Assessment and Plan (1) S/P CABG x 3 Status: Acute Assessment and plan: He is postop day 1, progressing well, off of pressors and on a nitroglycerin drip. He remains mildly acidemic. He is now breathing above the ventilator. Current Visit: Yes (2) Coronary artery disease Status: Chronic Current Visit: Yes (3) HTN (hypertension) with goal to be determined Status: Chronic Assessment and plan: Controlled Current Visit: Yes (4) Peripheral vascular disease Status: Chronic Current Visit: Yes (5) Chronic renal insufficiency Status: Chronic Current Visit: Yes (6) Anemia Status: Chronic Assessment and plan: Stable Current Visit: Yes Qualifiers: Anemia type: unspecified type Qualified Code(s): D64.9 - Anemia, unspecified Cardiology - PN: Subj Interval history: The patient is seen environmental sustainability manager for Dr. Lemus. He is postop day 1 status post three-vessel coronary artery bypass grafting. He remains intubated, although he is alert and interactive during my exam. Overall the evening was uneventful. He continues to have drainage from his chest tube. Exam (Progress Note) - Constitutional Vitals: Period Temp Pulse Resp BP Sys/Thomas Pulse Ox Last 24 Hr 97.3 F-98.6 F 72-95 10-10 85-183/56-96 95-100 Exam: General appearance: normal weight, no acute distress, intubated, alert and appropriately interactive, following commands. - Head Head exam: Present: normocephalic, atraumatic,. Absent: hematoma, laceration - Eye Eye exam: Absent: conjunctival injection, nystagmus, periorbital swelling, scleral icterus, laceration to eyelids Pupils: Absent: constricted, dilated, fixed, irregular, unequal - ENT ENT exam: Present: Endotracheal tube in place, normal external ear exam - Neck Neck exam: Present: normal inspection. Absent: lymphadenopathy, meningismus, tenderness, thyromegaly - Respiratory Respiratory exam: Present: Chest tube rub auscultated bilaterally anteriorly, there is normal rise with ventilated breaths. Absent: accessory muscle use - Cardiovascular Cardiovascular exam: Present: regular rate and rhythm. Absent: carotid bruit, gallop, JVD - GI/Abdominal GI/Abdominal exam: Present: normal bowel sounds. Absent: distended, firm, guarding, hernia, mass, tenderness, rebound, soft - Extremities Exam Extremities exam: Present: Left lower extremity vein graft harvest site is without Calor, erythema, edges are well approximated. Absent: calf tenderness, edema - Back Exam Back exam: Unable to assess due to patient being on the ventilator - Neurological Exam Neurological exam: Unable to fully assess due to patient being on the ventilator. She does appear to move all 4 extremities. - Psychiatric Psychiatric exam: Unable to assess due to patient being on the ventilator. - Skin Skin exam: Present: normal color, warm, dry, intact. Absent: cyanosis, diaphoretic, rash, urticaria Result/EKG - Labs CBC & BMP: 02/11/17 04:00 02/11/17 04:00 Lab Results: I have reviewed the past 24 hour labs Labs: Laboratory Results - last 24 hr 02/09/17 02/10/17 02/10/17 05:03 07:29 07:29 WBC RBC Hgb Hct MCV MCH MCHC RDW Plt Count 173 MPV Neut % (Auto) Lymph % (Auto) [place] % (Auto) Eos % (Auto) Baso % (Auto) Neut # (Auto) Lymph # (Auto) [place] # (Auto) Eos # (Auto) Baso # (Auto) Total Counted Immature Gran % Nucleated RBC % Immature Gran # Segmented Neutrophils Band Neutrophils Lymphocytes Monocytes Nucleated RBCs # Platelet Estimate Hypochromasia Microcytosis Morphology Comment INR PT Patient/Control Mix Circ Anticoag PTT Patient Temperature 37 ABG pH 7.351 ABG pH at Pt Temp 7.351 ABG pCO2 41.2 ABG pCO2 at Pt Temp 41.2 ABG pO2 171.0 H ABG pO2 at Pt Temp 171.0 ABG HCO3 22.3 ABG Total CO2 20.6 L ABG O2 Saturation 99.2 ABG Base Excess -2.6 L ABG Sodium 140 VBG pH VBG pCO2 VBG pO2 VBG HCO3 VBG Total CO2 VBG O2 Saturation VBG Base Excess Hemoglobin 10.8 L Hematocrit 33.5 L Potassium 3.8 Glucose 134 H Ionized Calcium 1.14 L FiO2 Sodium Chloride Carbon Dioxide Anion Gap BUN Creatinine GFR Calculation BUN/Creatinine Ratio Calculated Osmolality Calcium Venous Ioniz Calcium Magnesium Total Bilirubin Direct Bilirubin AST ALT Alkaline Phosphatase Total Creatine Kinase CK-MB (CK-2) CK and CKMB Interp Troponin I Total Protein Albumin Globulin Albumin/Globulin Ratio Urine Color Urine Appearance Urine pH Ur Specific [place] Urine Protein Urine Glucose (UA) Urine Ketones Urine Blood Urine Nitrate Urine Bilirubin Urine Urobilinogen Urine Leukocytes Urine RBC Urine WBC Ur Squamous Epith Cells Ur Culture Indicated? Blood Type O POSITIVE Antibody Screen Negative Crossmatch See Detail 02/10/17 02/10/17 02/10/17 07:35 08:50 09:35 WBC RBC Hgb Hct MCV MCH MCHC RDW Plt Count MPV Neut % (Auto) Lymph % (Auto) [place] % (Auto) Eos % (Auto) Baso % (Auto) Neut # (Auto) Lymph # (Auto) [place] # (Auto) Eos # (Auto) Baso # (Auto) Total Counted Immature Gran % Nucleated RBC % Immature Gran # Segmented Neutrophils Band Neutrophils Lymphocytes Monocytes Nucleated RBCs # Platelet Estimate Hypochromasia Microcytosis Morphology Comment INR PT Patient/Control Mix Circ Anticoag PTT Patient Temperature 34 35 ABG pH ABG pH at Pt Temp 7.379 7.384 ABG pCO2 ABG pCO2 at Pt Temp 36.4 31.4 ABG pO2 ABG pO2 at Pt Temp 35.5 38.6 ABG HCO3 ABG Total CO2 ABG O2 Saturation ABG Base Excess ABG Sodium 135 136 VBG pH 7.337 7.355 VBG pCO2 42.1 34.5 L VBG pO2 43.7 H 44.3 H VBG HCO3 21.6 L 19.5 L VBG Total CO2 21.3 17.9 VBG O2 Saturation 77.8 79.0 VBG Base Excess -3.1 L -5.6 L Hemoglobin 7.5 L D 8.8 L Hematocrit 23.5 L 27.4 L Potassium 3.9 4.1 Glucose 256 H 249 H Ionized Calcium FiO2 80.00 80.00 Sodium Chloride Carbon Dioxide Anion Gap BUN Creatinine GFR Calculation BUN/Creatinine Ratio Calculated Osmolality Calcium Venous Ioniz Calcium 0.98 L 0.94 L Magnesium Total Bilirubin Direct Bilirubin AST ALT Alkaline Phosphatase Total Creatine Kinase CK-MB (CK-2) CK and CKMB Interp Troponin I Total Protein Albumin Globulin Albumin/Globulin Ratio Urine Color Straw Urine Appearance Clear Urine pH 6.0 Ur Specific [place] 1.006 Urine Protein 100 Urine Glucose (UA) Negative Urine Ketones Negative Urine Blood Small Urine Nitrate Negative Urine Bilirubin Negative Urine Urobilinogen < 2.0 H Urine Leukocytes Negative Urine RBC <1 Urine WBC <1 Ur Squamous Epith Cells Occasional Ur Culture Indicated? Not indicated Blood Type Antibody Screen Crossmatch 02/10/17 02/10/17 02/10/17 10:15 10:15 11:45 WBC 14.7 H D RBC 2.61 L D Hgb 8.1 L D Hct 24.5 L MCV 93.9 MCH 31 MCHC 33.1 RDW 16.1 Plt Count 119 L D 192 D MPV 10.9 Neut % (Auto) 88.1 H Lymph % (Auto) 4.6 L [place] % (Auto) 5.5 Eos % (Auto) 0.4 Baso % (Auto) 0.3 Neut # (Auto) 13.0 H Lymph # (Auto) 0.7 L [place] # (Auto) 0.8 Eos # (Auto) 0.1 Baso # (Auto) 0.1 Total Counted 100 Immature Gran % 1.1 Nucleated RBC % 0.0 Immature Gran # 0.16 Segmented Neutrophils 84 Band Neutrophils 9 Lymphocytes 5 L Monocytes 2 Nucleated RBCs # 0.00 Platelet Estimate Adequate Hypochromasia 1+ Microcytosis 1+ Morphology Comment INR PT Patient/Control Mix Circ Anticoag PTT Patient Temperature 37 ABG pH 7.340 L ABG pH at Pt Temp 7.340 ABG pCO2 38.5 ABG pCO2 at Pt Temp 38.5 ABG pO2 225.0 H ABG pO2 at Pt Temp 225.0 ABG HCO3 20.6 ABG Total CO2 19.2 L ABG O2 Saturation 99.3 ABG Base Excess -4.6 L ABG Sodium 139 VBG pH VBG pCO2 VBG pO2 VBG HCO3 VBG Total CO2 VBG O2 Saturation VBG Base Excess Hemoglobin 9.0 L Hematocrit 27.9 L Potassium 4.0 Glucose 222 H Ionized Calcium 1.11 L FiO2 Sodium Chloride Carbon Dioxide Anion Gap BUN Creatinine GFR Calculation BUN/Creatinine Ratio Calculated Osmolality Calcium Venous Ioniz Calcium Magnesium Total Bilirubin Direct Bilirubin AST ALT Alkaline Phosphatase Total Creatine Kinase CK-MB (CK-2) CK and CKMB Interp Troponin I Total Protein Albumin Globulin Albumin/Globulin Ratio Urine Color Urine Appearance Urine pH Ur Specific [place] Urine Protein Urine Glucose (UA) Urine Ketones Urine Blood Urine Nitrate Urine Bilirubin Urine Urobilinogen Urine Leukocytes Urine RBC Urine WBC Ur Squamous Epith Cells Ur Culture Indicated? Blood Type Antibody Screen Crossmatch 02/10/17 02/10/17 02/10/17 11:45 11:45 11:45 WBC RBC Hgb Hct MCV MCH MCHC RDW Plt Count MPV Neut % (Auto) Lymph % (Auto) [place] % (Auto) Eos % (Auto) Baso % (Auto) Neut # (Auto) Lymph # (Auto) [place] # (Auto) Eos # (Auto) Baso # (Auto) Total Counted Immature Gran % Nucleated RBC % Immature Gran # Segmented Neutrophils Band Neutrophils Lymphocytes Monocytes Nucleated RBCs # Platelet Estimate Hypochromasia Microcytosis Morphology Comment INR 1.1 PT Patient/Control Mix 11.8 Circ Anticoag PTT 29.3 Patient Temperature ABG pH 7.317 L ABG pH at Pt Temp ABG pCO2 41.4 ABG pCO2 at Pt Temp ABG pO2 231.0 H ABG pO2 at Pt Temp ABG HCO3 20.6 ABG Total CO2 19.8 L ABG O2 Saturation 99.8 ABG Base Excess -4.6 L ABG Sodium VBG pH VBG pCO2 VBG pO2 VBG HCO3 VBG Total CO2 VBG O2 Saturation VBG Base Excess Hemoglobin 8.3 L Hematocrit 25.7 L Potassium 3.9 3.8 Glucose 191 H 205 H Ionized Calcium FiO2 Sodium 144 Chloride 107 Carbon Dioxide 23 Anion Gap 17.9 H BUN 22 H Creatinine 3.40 H GFR Calculation 20 BUN/Creatinine Ratio 6.00 Calculated Osmolality 293.8 Calcium 7.5 L Venous Ioniz Calcium Magnesium 2.0 Total Bilirubin 0.40 Direct Bilirubin AST 24 ALT 15 L Alkaline Phosphatase 62 Total Creatine Kinase CK-MB (CK-2) CK and CKMB Interp Troponin I Total Protein 5.6 L Albumin 3.0 L Globulin 2.6 Albumin/Globulin Ratio 1.1 Urine Color Urine Appearance Urine pH Ur Specific [place] Urine Protein Urine Glucose (UA) Urine Ketones Urine Blood Urine Nitrate Urine Bilirubin Urine Urobilinogen Urine Leukocytes Urine RBC Urine WBC Ur Squamous Epith Cells Ur Culture Indicated? Blood Type Antibody Screen Crossmatch 02/10/17 02/10/17 02/10/17 11:45 13:02 14:00 WBC RBC Hgb Hct MCV MCH MCHC RDW Plt Count MPV Neut % (Auto) Lymph % (Auto) [place] % (Auto) Eos % (Auto) Baso % (Auto) Neut # (Auto) Lymph # (Auto) [place] # (Auto) Eos # (Auto) Baso # (Auto) Total Counted Immature Gran % Nucleated RBC % Immature Gran # Segmented Neutrophils Band Neutrophils Lymphocytes Monocytes Nucleated RBCs # Platelet Estimate Hypochromasia Microcytosis Morphology Comment INR PT Patient/Control Mix Circ Anticoag PTT Patient Temperature ABG pH 7.318 L 7.343 L ABG pH at Pt Temp ABG pCO2 40.7 39.4 ABG pCO2 at Pt Temp ABG pO2 126.0 H 108.8 H ABG pO2 at Pt Temp ABG HCO3 20.3 20.9 ABG Total CO2 19.2 L 22.1 L ABG O2 Saturation 98.1 97.5 ABG Base Excess -5.0 L -4.4 L ABG Sodium VBG pH VBG pCO2 VBG pO2 VBG HCO3 VBG Total CO2 VBG O2 Saturation VBG Base Excess Hemoglobin 9.9 L 9.7 L Hematocrit 30.6 L 29.0 L Potassium 3.9 4.1 Glucose 174 H 152 H Ionized Calcium FiO2 Sodium Chloride Carbon Dioxide Anion Gap BUN Creatinine GFR Calculation BUN/Creatinine Ratio Calculated Osmolality Calcium Venous Ioniz Calcium Magnesium Total Bilirubin Direct Bilirubin AST ALT Alkaline Phosphatase Total Creatine Kinase 242 CK-MB (CK-2) 18.9 H CK and CKMB Interp 7.8 Troponin I 9.620 H Total Protein Albumin Globulin Albumin/Globulin Ratio Urine Color Urine Appearance Urine pH Ur Specific [place] Urine Protein Urine Glucose (UA) Urine Ketones Urine Blood Urine Nitrate Urine Bilirubin Urine Urobilinogen Urine Leukocytes Urine RBC Urine WBC Ur Squamous Epith Cells Ur Culture Indicated? Blood Type Antibody Screen Crossmatch 02/10/17 02/10/17 02/10/17 15:00 16:00 18:20 WBC RBC Hgb Hct MCV MCH MCHC RDW Plt Count MPV Neut % (Auto) Lymph % (Auto) [place] % (Auto) Eos % (Auto) Baso % (Auto) Neut # (Auto) Lymph # (Auto) [place] # (Auto) Eos # (Auto) Baso # (Auto) Total Counted Immature Gran % Nucleated RBC % Immature Gran # Segmented Neutrophils Band Neutrophils Lymphocytes Monocytes Nucleated RBCs # Platelet Estimate Hypochromasia Microcytosis Morphology Comment INR PT Patient/Control Mix Circ Anticoag PTT Patient Temperature ABG pH 7.335 L 7.344 L 7.317 L ABG pH at Pt Temp ABG pCO2 38.4 38.5 38.3 ABG pCO2 at Pt Temp ABG pO2 89.0 85.1 88.8 ABG pO2 at Pt Temp ABG HCO3 20.3 20.5 19.4 L ABG Total CO2 18.8 L 21.7 L 18.0 L ABG O2 Saturation 96.9 96.1 96.7 ABG Base Excess -4.9 L -4.8 L -6.0 L ABG Sodium VBG pH VBG pCO2 VBG pO2 VBG HCO3 VBG Total CO2 VBG O2 Saturation VBG Base Excess Hemoglobin 9.7 L 10.4 L 10.1 L Hematocrit 30.1 L 31.0 L 31.1 L Potassium 4.2 4.3 4.3 Glucose 151 H 138 H 154 H Ionized Calcium FiO2 Sodium Chloride Carbon Dioxide Anion Gap BUN Creatinine GFR Calculation BUN/Creatinine Ratio Calculated Osmolality Calcium Venous Ioniz Calcium Magnesium Total Bilirubin Direct Bilirubin AST ALT Alkaline Phosphatase Total Creatine Kinase CK-MB (CK-2) CK and CKMB Interp Troponin I Total Protein Albumin Globulin Albumin/Globulin Ratio Urine Color Urine Appearance Urine pH Ur Specific [place] Urine Protein Urine Glucose (UA) Urine Ketones Urine Blood Urine Nitrate Urine Bilirubin Urine Urobilinogen Urine Leukocytes Urine RBC Urine WBC Ur Squamous Epith Cells Ur Culture Indicated? Blood Type Antibody Screen Crossmatch 02/10/17 02/10/17 02/11/17 19:34 19:34 00:00 WBC RBC Hgb Hct MCV MCH MCHC RDW Plt Count MPV Neut % (Auto) Lymph % (Auto) [place] % (Auto) Eos % (Auto) Baso % (Auto) Neut # (Auto) Lymph # (Auto) [place] # (Auto) Eos # (Auto) Baso # (Auto) Total Counted Immature Gran % Nucleated RBC % Immature Gran # Segmented Neutrophils Band Neutrophils Lymphocytes Monocytes Nucleated RBCs # Platelet Estimate Hypochromasia Microcytosis Morphology Comment INR PT Patient/Control Mix Circ Anticoag PTT Patient Temperature ABG pH 7.329 L 7.348 L ABG pH at Pt Temp ABG pCO2 39.2 39.9 ABG pCO2 at Pt Temp ABG pO2 81.8 73.4 L ABG pO2 at Pt Temp ABG HCO3 20.3 21.4 ABG Total CO2 19.0 L 22.7 L ABG O2 Saturation 96.0 94.2 L ABG Base Excess -4.9 L -3.9 L ABG Sodium VBG pH VBG pCO2 VBG pO2 VBG HCO3 VBG Total CO2 VBG O2 Saturation VBG Base Excess Hemoglobin 9.8 L 10.1 L Hematocrit 30.3 L 30.0 L Potassium 4.1 4.3 Glucose 142 H 145 H Ionized Calcium FiO2 Sodium Chloride Carbon Dioxide Anion Gap BUN Creatinine GFR Calculation BUN/Creatinine Ratio Calculated Osmolality Calcium Venous Ioniz Calcium Magnesium Total Bilirubin Direct Bilirubin AST ALT Alkaline Phosphatase Total Creatine Kinase 287 CK-MB (CK-2) 22.1 H CK and CKMB Interp 7.7 Troponin I 13.600 H D Total Protein Albumin Globulin Albumin/Globulin Ratio Urine Color Urine Appearance Urine pH Ur Specific [place] Urine Protein Urine Glucose (UA) Urine Ketones Urine Blood Urine Nitrate Urine Bilirubin Urine Urobilinogen Urine Leukocytes Urine RBC Urine WBC Ur Squamous Epith Cells Ur Culture Indicated? Blood Type Antibody Screen Crossmatch 02/11/17 02/11/17 02/11/17 04:00 04:00 04:00 WBC 16.7 H RBC 2.97 L Hgb 9.2 L Hct 27.7 L MCV 93.3 MCH 31 MCHC 33.2 RDW 16.5 Plt Count 151 D MPV 10.9 Neut % (Auto) 88.4 H Lymph % (Auto) 3.5 L [place] % (Auto) 7.3 Eos % (Auto) 0.0 Baso % (Auto) 0.1 Neut # (Auto) 14.8 H Lymph # (Auto) 0.6 L [place] # (Auto) 1.2 H Eos # (Auto) 0.0 Baso # (Auto) 0.0 Total Counted Immature Gran % 0.7 Nucleated RBC % 0.0 Immature Gran # 0.12 Segmented Neutrophils Band Neutrophils Lymphocytes Monocytes Nucleated RBCs # 0.00 Platelet Estimate Hypochromasia Microcytosis Morphology Comment INR PT Patient/Control Mix Circ Anticoag PTT Patient Temperature ABG pH ABG pH at Pt Temp ABG pCO2 ABG pCO2 at Pt Temp ABG pO2 ABG pO2 at Pt Temp ABG HCO3 ABG Total CO2 ABG O2 Saturation ABG Base Excess ABG Sodium VBG pH VBG pCO2 VBG pO2 VBG HCO3 VBG Total CO2 VBG O2 Saturation VBG Base Excess Hemoglobin Hematocrit Potassium 4.4 Glucose 127 H Ionized Calcium FiO2 Sodium 143 Chloride 109 H Carbon Dioxide 21 Anion Gap 17.4 H BUN 33 H D Creatinine 4.50 H GFR Calculation 14 BUN/Creatinine Ratio 7.00 Calculated Osmolality 293.0 Calcium 8.1 L Venous Ioniz Calcium Magnesium 2.2 Total Bilirubin < 0.39 Direct Bilirubin 0.1 AST 36 ALT 15 L Alkaline Phosphatase 56 Total Creatine Kinase 393 H D CK-MB (CK-2) 34.1 H D CK and CKMB Interp 8.7 Troponin I 16.100 H Total Protein 5.3 L Albumin 2.9 L Globulin 2.4 Albumin/Globulin Ratio 1.2 Urine Color Urine Appearance Urine pH Ur Specific [place] Urine Protein Urine Glucose (UA) Urine Ketones Urine Blood Urine Nitrate Urine Bilirubin Urine Urobilinogen Urine Leukocytes Urine RBC Urine WBC Ur Squamous Epith Cells Ur Culture Indicated? Blood Type Antibody Screen Crossmatch 02/11/17 02/11/17 04:00 05:15 WBC RBC Hgb Hct MCV MCH MCHC RDW Plt Count MPV Neut % (Auto) Lymph % (Auto) [place] % (Auto) Eos % (Auto) Baso % (Auto) Neut # (Auto) Lymph # (Auto) [place] # (Auto) Eos # (Auto) Baso # (Auto) Total Counted Immature Gran % Nucleated RBC % Immature Gran # Segmented Neutrophils Band Neutrophils Lymphocytes Monocytes Nucleated RBCs # Platelet Estimate Hypochromasia Microcytosis Morphology Comment INR PT Patient/Control Mix Circ Anticoag PTT Patient Temperature ABG pH 7.318 L 7.332 L ABG pH at Pt Temp ABG pCO2 39.5 37.3 ABG pCO2 at Pt Temp ABG pO2 70.8 L 94.5 ABG pO2 at Pt Temp ABG HCO3 19.8 L 19.8 L ABG Total CO2 18.6 L 18.2 L ABG O2 Saturation 93.6 L 97.3 ABG Base Excess -5.5 L -5.6 L ABG Sodium VBG pH VBG pCO2 VBG pO2 VBG HCO3 VBG Total CO2 VBG O2 Saturation VBG Base Excess Hemoglobin 9.7 L 9.5 L Hematocrit 30.1 L 29.3 L Potassium 4.2 4.3 Glucose 130 H 120 H Ionized Calcium FiO2 Sodium Chloride Carbon Dioxide Anion Gap BUN Creatinine GFR Calculation BUN/Creatinine Ratio Calculated Osmolality Calcium Venous Ioniz Calcium Magnesium Total Bilirubin Direct Bilirubin AST ALT Alkaline Phosphatase Total Creatine Kinase CK-MB (CK-2) CK and CKMB Interp Troponin I Total Protein Albumin Globulin Albumin/Globulin Ratio Urine Color Urine Appearance Urine pH Ur Specific [place] Urine Protein Urine Glucose (UA) Urine Ketones Urine Blood Urine Nitrate Urine Bilirubin Urine Urobilinogen Urine Leukocytes Urine RBC Urine WBC Ur Squamous Epith Cells Ur Culture Indicated? Blood Type Antibody Screen Crossmatch Quality Measures - VTE Contraindication to Pharmacological VTE Prophylaxis: High Risk of Bleeding
[2017-02-11 06:20] LABS: Anisocytosis 1+; Band Neutrophils 2 % (0-10); Lymphocytes 4 % (20-55); Segmented Neutrophils 93 % (50-85); Total Cells Counted 100
[2017-02-11 06:21] LABS: Platelet Estimate Adequate
[2017-02-11] MEDS: CEFUROXIME INJ 1,500 MG in SODIUM CHLORIDE 0.9% 100 ML IV SCH ×2 (07:26→19:42)
--- NOTE | 2017-02-11 07:57 | EKG Report ---
Stationary ECG Study 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
[2017-02-11] MEDS ORDERED: METOCLOPRAMIDE 10 MG/2 ML VIAL IV PRN (08:13)
[2017-02-11] MEDS ORDERED: PROMETHAZINE INJ 12.5 MG in SODIUM CHLORIDE 0.9% 50 ML IV ONE (08:30)
--- NOTE | 2017-02-11 09:06 | Cardiothoracic Progress Note ---
Cardiothoracic Subjective Interval history: Patient is awake alert but remains intubated. He is currently on dialysis. Vital signs the been stable through the night his rhythm and blood pressure have been stable. His arterial blood gases are satisfactory. Chest tube drainage is minimal and we're going to discontinue his chest tubes. I think we will keep him in intensive care tonight but hopefully we will get him extubated sometime during the day today. Exam (Progress Note) - Constitutional Vitals: Period Temp Pulse Resp BP Sys/Thomas Pulse Ox Last 24 Hr 97.3 F-98.6 F 72-95 10-17 85-183/56-96 95-100 Result/EKG - Labs CBC & BMP: 02/11/17 04:00 02/11/17 04:00 Labs: Laboratory Results - last 24 hr 02/09/17 02/09/17 02/10/17 05:03 08:22 09:35 WBC RBC Hgb Hct MCV MCH MCHC RDW Plt Count MPV Neut % (Auto) Lymph % (Auto) Wilson % (Auto) Eos % (Auto) Baso % (Auto) Neut # (Auto) Lymph # (Auto) Wilson # (Auto) Eos # (Auto) Baso # (Auto) Total Counted Immature Gran % Nucleated RBC % Immature Gran # Segmented Neutrophils Band Neutrophils Lymphocytes Monocytes Nucleated RBCs # Platelet Estimate Hypochromasia Anisocytosis Microcytosis Morphology Comment INR PT Patient/Control Mix Circ Anticoag PTT Patient Temperature 35 ABG pH ABG pH at Pt Temp 7.384 ABG pCO2 ABG pCO2 at Pt Temp 31.4 ABG pO2 ABG pO2 at Pt Temp 38.6 ABG HCO3 ABG Total CO2 ABG O2 Saturation ABG Base Excess ABG Sodium 136 VBG pH 7.355 VBG pCO2 34.5 L VBG pO2 44.3 H VBG HCO3 19.5 L VBG Total CO2 17.9 VBG O2 Saturation 79.0 VBG Base Excess -5.6 L Hemoglobin 8.8 L Hematocrit 27.4 L Potassium 4.1 Glucose 249 H Ionized Calcium FiO2 80.00 Sodium Chloride Carbon Dioxide Anion Gap BUN Creatinine GFR Calculation BUN/Creatinine Ratio POC Glucose Calculated Osmolality Calcium Venous Ioniz Calcium 0.94 L Magnesium Total Bilirubin Direct Bilirubin AST ALT Alkaline Phosphatase Total Creatine Kinase CK-MB (CK-2) CK and CKMB Interp Troponin I Total Protein Albumin Globulin Albumin/Globulin Ratio Blood Type O POSITIVE Cancelled Antibody Screen Negative Cancelled Crossmatch See Detail See Detail Blood Bank Comment Cancelled 02/10/17 02/10/17 02/10/17 10:15 10:15 11:45 WBC 14.7 H D RBC 2.61 L D Hgb 8.1 L D Hct 24.5 L MCV 93.9 MCH 31 MCHC 33.1 RDW 16.1 Plt Count 119 L D 192 D MPV 10.9 Neut % (Auto) 88.1 H Lymph % (Auto) 4.6 L Wilson % (Auto) 5.5 Eos % (Auto) 0.4 Baso % (Auto) 0.3 Neut # (Auto) 13.0 H Lymph # (Auto) 0.7 L Wilson # (Auto) 0.8 Eos # (Auto) 0.1 Baso # (Auto) 0.1 Total Counted 100 Immature Gran % 1.1 Nucleated RBC % 0.0 Immature Gran # 0.16 Segmented Neutrophils 84 Band Neutrophils 9 Lymphocytes 5 L Monocytes 2 Nucleated RBCs # 0.00 Platelet Estimate Adequate Hypochromasia 1+ Anisocytosis Microcytosis 1+ Morphology Comment INR PT Patient/Control Mix Circ Anticoag PTT Patient Temperature 37 ABG pH 7.340 L ABG pH at Pt Temp 7.340 ABG pCO2 38.5 ABG pCO2 at Pt Temp 38.5 ABG pO2 225.0 H ABG pO2 at Pt Temp 225.0 ABG HCO3 20.6 ABG Total CO2 19.2 L ABG O2 Saturation 99.3 ABG Base Excess -4.6 L ABG Sodium 139 VBG pH VBG pCO2 VBG pO2 VBG HCO3 VBG Total CO2 VBG O2 Saturation VBG Base Excess Hemoglobin 9.0 L Hematocrit 27.9 L Potassium 4.0 Glucose 222 H Ionized Calcium 1.11 L FiO2 Sodium Chloride Carbon Dioxide Anion Gap BUN Creatinine GFR Calculation BUN/Creatinine Ratio POC Glucose Calculated Osmolality Calcium Venous Ioniz Calcium Magnesium Total Bilirubin Direct Bilirubin AST ALT Alkaline Phosphatase Total Creatine Kinase CK-MB (CK-2) CK and CKMB Interp Troponin I Total Protein Albumin Globulin Albumin/Globulin Ratio Blood Type Antibody Screen Crossmatch Blood Bank Comment 02/10/17 02/10/17 02/10/17 11:45 11:45 11:45 WBC RBC Hgb Hct MCV MCH MCHC RDW Plt Count MPV Neut % (Auto) Lymph % (Auto) Wilson % (Auto) Eos % (Auto) Baso % (Auto) Neut # (Auto) Lymph # (Auto) Wilson # (Auto) Eos # (Auto) Baso # (Auto) Total Counted Immature Gran % Nucleated RBC % Immature Gran # Segmented Neutrophils Band Neutrophils Lymphocytes Monocytes Nucleated RBCs # Platelet Estimate Hypochromasia Anisocytosis Microcytosis Morphology Comment INR 1.1 PT Patient/Control Mix 11.8 Circ Anticoag PTT 29.3 Patient Temperature ABG pH 7.317 L ABG pH at Pt Temp ABG pCO2 41.4 ABG pCO2 at Pt Temp ABG pO2 231.0 H ABG pO2 at Pt Temp ABG HCO3 20.6 ABG Total CO2 19.8 L ABG O2 Saturation 99.8 ABG Base Excess -4.6 L ABG Sodium VBG pH VBG pCO2 VBG pO2 VBG HCO3 VBG Total CO2 VBG O2 Saturation VBG Base Excess Hemoglobin 8.3 L Hematocrit 25.7 L Potassium 3.9 3.8 Glucose 191 H 205 H Ionized Calcium FiO2 Sodium 144 Chloride 107 Carbon Dioxide 23 Anion Gap 17.9 H BUN 22 H Creatinine 3.40 H GFR Calculation 20 BUN/Creatinine Ratio 6.00 POC Glucose Calculated Osmolality 293.8 Calcium 7.5 L Venous Ioniz Calcium Magnesium 2.0 Total Bilirubin 0.40 Direct Bilirubin AST 24 ALT 15 L Alkaline Phosphatase 62 Total Creatine Kinase CK-MB (CK-2) CK and CKMB Interp Troponin I Total Protein 5.6 L Albumin 3.0 L Globulin 2.6 Albumin/Globulin Ratio 1.1 Blood Type Antibody Screen Crossmatch Blood Bank Comment 02/10/17 02/10/17 02/10/17 11:45 13:02 13:05 WBC RBC Hgb Hct MCV MCH MCHC RDW Plt Count MPV Neut % (Auto) Lymph % (Auto) Wilson % (Auto) Eos % (Auto) Baso % (Auto) Neut # (Auto) Lymph # (Auto) Wilson # (Auto) Eos # (Auto) Baso # (Auto) Total Counted Immature Gran % Nucleated RBC % Immature Gran # Segmented Neutrophils Band Neutrophils Lymphocytes Monocytes Nucleated RBCs # Platelet Estimate Hypochromasia Anisocytosis Microcytosis Morphology Comment INR PT Patient/Control Mix Circ Anticoag PTT Patient Temperature ABG pH 7.318 L ABG pH at Pt Temp ABG pCO2 40.7 ABG pCO2 at Pt Temp ABG pO2 126.0 H ABG pO2 at Pt Temp ABG HCO3 20.3 ABG Total CO2 19.2 L ABG O2 Saturation 98.1 ABG Base Excess -5.0 L ABG Sodium VBG pH VBG pCO2 VBG pO2 VBG HCO3 VBG Total CO2 VBG O2 Saturation VBG Base Excess Hemoglobin 9.9 L Hematocrit 30.6 L Potassium 3.9 Glucose 174 H Ionized Calcium FiO2 Sodium Chloride Carbon Dioxide Anion Gap BUN Creatinine GFR Calculation BUN/Creatinine Ratio POC Glucose 162 H Calculated Osmolality Calcium Venous Ioniz Calcium Magnesium Total Bilirubin Direct Bilirubin AST ALT Alkaline Phosphatase Total Creatine Kinase 242 CK-MB (CK-2) 18.9 H CK and CKMB Interp 7.8 Troponin I 9.620 H Total Protein Albumin Globulin Albumin/Globulin Ratio Blood Type Antibody Screen Crossmatch Blood Bank Comment 02/10/17 02/10/17 02/10/17 14:00 15:00 16:00 WBC RBC Hgb Hct MCV MCH MCHC RDW Plt Count MPV Neut % (Auto) Lymph % (Auto) Wilson % (Auto) Eos % (Auto) Baso % (Auto) Neut # (Auto) Lymph # (Auto) Wilson # (Auto) Eos # (Auto) Baso # (Auto) Total Counted Immature Gran % Nucleated RBC % Immature Gran # Segmented Neutrophils Band Neutrophils Lymphocytes Monocytes Nucleated RBCs # Platelet Estimate Hypochromasia Anisocytosis Microcytosis Morphology Comment INR PT Patient/Control Mix Circ Anticoag PTT Patient Temperature ABG pH 7.343 L 7.335 L 7.344 L ABG pH at Pt Temp ABG pCO2 39.4 38.4 38.5 ABG pCO2 at Pt Temp ABG pO2 108.8 H 89.0 85.1 ABG pO2 at Pt Temp ABG HCO3 20.9 20.3 20.5 ABG Total CO2 22.1 L 18.8 L 21.7 L ABG O2 Saturation 97.5 96.9 96.1 ABG Base Excess -4.4 L -4.9 L -4.8 L ABG Sodium VBG pH VBG pCO2 VBG pO2 VBG HCO3 VBG Total CO2 VBG O2 Saturation VBG Base Excess Hemoglobin 9.7 L 9.7 L 10.4 L Hematocrit 29.0 L 30.1 L 31.0 L Potassium 4.1 4.2 4.3 Glucose 152 H 151 H 138 H Ionized Calcium FiO2 Sodium Chloride Carbon Dioxide Anion Gap BUN Creatinine GFR Calculation BUN/Creatinine Ratio POC Glucose Calculated Osmolality Calcium Venous Ioniz Calcium Magnesium Total Bilirubin Direct Bilirubin AST ALT Alkaline Phosphatase Total Creatine Kinase CK-MB (CK-2) CK and CKMB Interp Troponin I Total Protein Albumin Globulin Albumin/Globulin Ratio Blood Type Antibody Screen Crossmatch Blood Bank Comment 02/10/17 02/10/17 02/10/17 17:00 18:04 18:20 WBC RBC Hgb Hct MCV MCH MCHC RDW Plt Count MPV Neut % (Auto) Lymph % (Auto) Wilson % (Auto) Eos % (Auto) Baso % (Auto) Neut # (Auto) Lymph # (Auto) Wilson # (Auto) Eos # (Auto) Baso # (Auto) Total Counted Immature Gran % Nucleated RBC % Immature Gran # Segmented Neutrophils Band Neutrophils Lymphocytes Monocytes Nucleated RBCs # Platelet Estimate Hypochromasia Anisocytosis Microcytosis Morphology Comment INR PT Patient/Control Mix Circ Anticoag PTT Patient Temperature ABG pH 7.317 L ABG pH at Pt Temp ABG pCO2 38.3 ABG pCO2 at Pt Temp ABG pO2 88.8 ABG pO2 at Pt Temp ABG HCO3 19.4 L ABG Total CO2 18.0 L ABG O2 Saturation 96.7 ABG Base Excess -6.0 L ABG Sodium VBG pH VBG pCO2 VBG pO2 VBG HCO3 VBG Total CO2 VBG O2 Saturation VBG Base Excess Hemoglobin 10.1 L Hematocrit 31.1 L Potassium 4.3 Glucose 154 H Ionized Calcium FiO2 Sodium Chloride Carbon Dioxide Anion Gap BUN Creatinine GFR Calculation BUN/Creatinine Ratio POC Glucose 129 H 168 H Calculated Osmolality Calcium Venous Ioniz Calcium Magnesium Total Bilirubin Direct Bilirubin AST ALT Alkaline Phosphatase Total Creatine Kinase CK-MB (CK-2) CK and CKMB Interp Troponin I Total Protein Albumin Globulin Albumin/Globulin Ratio Blood Type Antibody Screen Crossmatch Blood Bank Comment 02/10/17 02/10/17 02/10/17 19:04 19:34 19:34 WBC RBC Hgb Hct MCV MCH MCHC RDW Plt Count MPV Neut % (Auto) Lymph % (Auto) Wilson % (Auto) Eos % (Auto) Baso % (Auto) Neut # (Auto) Lymph # (Auto) Wilson # (Auto) Eos # (Auto) Baso # (Auto) Total Counted Immature Gran % Nucleated RBC % Immature Gran # Segmented Neutrophils Band Neutrophils Lymphocytes Monocytes Nucleated RBCs # Platelet Estimate Hypochromasia Anisocytosis Microcytosis Morphology Comment INR PT Patient/Control Mix Circ Anticoag PTT Patient Temperature ABG pH 7.329 L ABG pH at Pt Temp ABG pCO2 39.2 ABG pCO2 at Pt Temp ABG pO2 81.8 ABG pO2 at Pt Temp ABG HCO3 20.3 ABG Total CO2 19.0 L ABG O2 Saturation 96.0 ABG Base Excess -4.9 L ABG Sodium VBG pH VBG pCO2 VBG pO2 VBG HCO3 VBG Total CO2 VBG O2 Saturation VBG Base Excess Hemoglobin 9.8 L Hematocrit 30.3 L Potassium 4.1 Glucose 142 H Ionized Calcium FiO2 Sodium Chloride Carbon Dioxide Anion Gap BUN Creatinine GFR Calculation BUN/Creatinine Ratio POC Glucose 162 H Calculated Osmolality Calcium Venous Ioniz Calcium Magnesium Total Bilirubin Direct Bilirubin AST ALT Alkaline Phosphatase Total Creatine Kinase 287 CK-MB (CK-2) 22.1 H CK and CKMB Interp 7.7 Troponin I 13.600 H D Total Protein Albumin Globulin Albumin/Globulin Ratio Blood Type Antibody Screen Crossmatch Blood Bank Comment 02/10/17 02/10/17 02/10/17 20:00 20:59 21:59 WBC RBC Hgb Hct MCV MCH MCHC RDW Plt Count MPV Neut % (Auto) Lymph % (Auto) Wilson % (Auto) Eos % (Auto) Baso % (Auto) Neut # (Auto) Lymph # (Auto) Wilson # (Auto) Eos # (Auto) Baso # (Auto) Total Counted Immature Gran % Nucleated RBC % Immature Gran # Segmented Neutrophils Band Neutrophils Lymphocytes Monocytes Nucleated RBCs # Platelet Estimate Hypochromasia Anisocytosis Microcytosis Morphology Comment INR PT Patient/Control Mix Circ Anticoag PTT Patient Temperature ABG pH ABG pH at Pt Temp ABG pCO2 ABG pCO2 at Pt Temp ABG pO2 ABG pO2 at Pt Temp ABG HCO3 ABG Total CO2 ABG O2 Saturation ABG Base Excess ABG Sodium VBG pH VBG pCO2 VBG pO2 VBG HCO3 VBG Total CO2 VBG O2 Saturation VBG Base Excess Hemoglobin Hematocrit Potassium Glucose Ionized Calcium FiO2 Sodium Chloride Carbon Dioxide Anion Gap BUN Creatinine GFR Calculation BUN/Creatinine Ratio POC Glucose 148 H 158 H 117 H Calculated Osmolality Calcium Venous Ioniz Calcium Magnesium Total Bilirubin Direct Bilirubin AST ALT Alkaline Phosphatase Total Creatine Kinase CK-MB (CK-2) CK and CKMB Interp Troponin I Total Protein Albumin Globulin Albumin/Globulin Ratio Blood Type Antibody Screen Crossmatch Blood Bank Comment 02/10/17 02/10/17 02/11/17 23:05 23:57 00:00 WBC RBC Hgb Hct MCV MCH MCHC RDW Plt Count MPV Neut % (Auto) Lymph % (Auto) Wilson % (Auto) Eos % (Auto) Baso % (Auto) Neut # (Auto) Lymph # (Auto) Wilson # (Auto) Eos # (Auto) Baso # (Auto) Total Counted Immature Gran % Nucleated RBC % Immature Gran # Segmented Neutrophils Band Neutrophils Lymphocytes Monocytes Nucleated RBCs # Platelet Estimate Hypochromasia Anisocytosis Microcytosis Morphology Comment INR PT Patient/Control Mix Circ Anticoag PTT Patient Temperature ABG pH 7.348 L ABG pH at Pt Temp ABG pCO2 39.9 ABG pCO2 at Pt Temp ABG pO2 73.4 L ABG pO2 at Pt Temp ABG HCO3 21.4 ABG Total CO2 22.7 L ABG O2 Saturation 94.2 L ABG Base Excess -3.9 L ABG Sodium VBG pH VBG pCO2 VBG pO2 VBG HCO3 VBG Total CO2 VBG O2 Saturation VBG Base Excess Hemoglobin 10.1 L Hematocrit 30.0 L Potassium 4.3 Glucose 145 H Ionized Calcium FiO2 Sodium Chloride Carbon Dioxide Anion Gap BUN Creatinine GFR Calculation BUN/Creatinine Ratio POC Glucose 146 H 156 H Calculated Osmolality Calcium Venous Ioniz Calcium Magnesium Total Bilirubin Direct Bilirubin AST ALT Alkaline Phosphatase Total Creatine Kinase CK-MB (CK-2) CK and CKMB Interp Troponin I Total Protein Albumin Globulin Albumin/Globulin Ratio Blood Type Antibody Screen Crossmatch Blood Bank Comment 02/11/17 02/11/17 02/11/17 00:59 02:05 03:08 WBC RBC Hgb Hct MCV MCH MCHC RDW Plt Count MPV Neut % (Auto) Lymph % (Auto) Wilson % (Auto) Eos % (Auto) Baso % (Auto) Neut # (Auto) Lymph # (Auto) Wilson # (Auto) Eos # (Auto) Baso # (Auto) Total Counted Immature Gran % Nucleated RBC % Immature Gran # Segmented Neutrophils Band Neutrophils Lymphocytes Monocytes Nucleated RBCs # Platelet Estimate Hypochromasia Anisocytosis Microcytosis Morphology Comment INR PT Patient/Control Mix Circ Anticoag PTT Patient Temperature ABG pH ABG pH at Pt Temp ABG pCO2 ABG pCO2 at Pt Temp ABG pO2 ABG pO2 at Pt Temp ABG HCO3 ABG Total CO2 ABG O2 Saturation ABG Base Excess ABG Sodium VBG pH VBG pCO2 VBG pO2 VBG HCO3 VBG Total CO2 VBG O2 Saturation VBG Base Excess Hemoglobin Hematocrit Potassium Glucose Ionized Calcium FiO2 Sodium Chloride Carbon Dioxide Anion Gap BUN Creatinine GFR Calculation BUN/Creatinine Ratio POC Glucose 150 H 144 H 142 H Calculated Osmolality Calcium Venous Ioniz Calcium Magnesium Total Bilirubin Direct Bilirubin AST ALT Alkaline Phosphatase Total Creatine Kinase CK-MB (CK-2) CK and CKMB Interp Troponin I Total Protein Albumin Globulin Albumin/Globulin Ratio Blood Type Antibody Screen Crossmatch Blood Bank Comment 02/11/17 02/11/17 02/11/17 03:58 04:00 04:00 WBC 16.7 H RBC 2.97 L Hgb 9.2 L Hct 27.7 L MCV 93.3 MCH 31 MCHC 33.2 RDW 16.5 Plt Count 151 D MPV 10.9 Neut % (Auto) 88.4 H Lymph % (Auto) 3.5 L Wilson % (Auto) 7.3 Eos % (Auto) 0.0 Baso % (Auto) 0.1 Neut # (Auto) 14.8 H Lymph # (Auto) 0.6 L Wilson # (Auto) 1.2 H Eos # (Auto) 0.0 Baso # (Auto) 0.0 Total Counted 100 Immature Gran % 0.7 Nucleated RBC % 0.0 Immature Gran # 0.12 Segmented Neutrophils 93 H Band Neutrophils 2 Lymphocytes 4 L Monocytes 1 L Nucleated RBCs # 0.00 Platelet Estimate Adequate Hypochromasia Anisocytosis 1+ Microcytosis Morphology Comment INR PT Patient/Control Mix Circ Anticoag PTT Patient Temperature ABG pH ABG pH at Pt Temp ABG pCO2 ABG pCO2 at Pt Temp ABG pO2 ABG pO2 at Pt Temp ABG HCO3 ABG Total CO2 ABG O2 Saturation ABG Base Excess ABG Sodium VBG pH VBG pCO2 VBG pO2 VBG HCO3 VBG Total CO2 VBG O2 Saturation VBG Base Excess Hemoglobin Hematocrit Potassium Glucose Ionized Calcium FiO2 Sodium Chloride Carbon Dioxide Anion Gap BUN Creatinine GFR Calculation BUN/Creatinine Ratio POC Glucose 133 H Calculated Osmolality Calcium Venous Ioniz Calcium Magnesium Total Bilirubin Direct Bilirubin AST ALT Alkaline Phosphatase Total Creatine Kinase 393 H D CK-MB (CK-2) 34.1 H D CK and CKMB Interp 8.7 Troponin I 16.100 H Total Protein Albumin Globulin Albumin/Globulin Ratio Blood Type Antibody Screen Crossmatch Blood Bank Comment 02/11/17 02/11/17 02/11/17 04:00 04:00 05:15 WBC RBC Hgb Hct MCV MCH MCHC RDW Plt Count MPV Neut % (Auto) Lymph % (Auto) Wilson % (Auto) Eos % (Auto) Baso % (Auto) Neut # (Auto) Lymph # (Auto) Wilson # (Auto) Eos # (Auto) Baso # (Auto) Total Counted Immature Gran % Nucleated RBC % Immature Gran # Segmented Neutrophils Band Neutrophils Lymphocytes Monocytes Nucleated RBCs # Platelet Estimate Hypochromasia Anisocytosis Microcytosis Morphology Comment INR PT Patient/Control Mix Circ Anticoag PTT Patient Temperature ABG pH 7.318 L 7.332 L ABG pH at Pt Temp ABG pCO2 39.5 37.3 ABG pCO2 at Pt Temp ABG pO2 70.8 L 94.5 ABG pO2 at Pt Temp ABG HCO3 19.8 L 19.8 L ABG Total CO2 18.6 L 18.2 L ABG O2 Saturation 93.6 L 97.3 ABG Base Excess -5.5 L -5.6 L ABG Sodium VBG pH VBG pCO2 VBG pO2 VBG HCO3 VBG Total CO2 VBG O2 Saturation VBG Base Excess Hemoglobin 9.7 L 9.5 L Hematocrit 30.1 L 29.3 L Potassium 4.4 4.2 4.3 Glucose 127 H 130 H 120 H Ionized Calcium FiO2 Sodium 143 Chloride 109 H Carbon Dioxide 21 Anion Gap 17.4 H BUN 33 H D Creatinine 4.50 H GFR Calculation 14 BUN/Creatinine Ratio 7.00 POC Glucose Calculated Osmolality 293.0 Calcium 8.1 L Venous Ioniz Calcium Magnesium 2.2 Total Bilirubin < 0.39 Direct Bilirubin 0.1 AST 36 ALT 15 L Alkaline Phosphatase 56 Total Creatine Kinase CK-MB (CK-2) CK and CKMB Interp Troponin I Total Protein 5.3 L Albumin 2.9 L Globulin 2.4 Albumin/Globulin Ratio 1.2 Blood Type Antibody Screen Crossmatch Blood Bank Comment 02/11/17 02/11/17 02/11/17 05:16 06:02 07:14 WBC RBC Hgb Hct MCV MCH MCHC RDW Plt Count MPV Neut % (Auto) Lymph % (Auto) Wilson % (Auto) Eos % (Auto) Baso % (Auto) Neut # (Auto) Lymph # (Auto) Wilson # (Auto) Eos # (Auto) Baso # (Auto) Total Counted Immature Gran % Nucleated RBC % Immature Gran # Segmented Neutrophils Band Neutrophils Lymphocytes Monocytes Nucleated RBCs # Platelet Estimate Hypochromasia Anisocytosis Microcytosis Morphology Comment INR PT Patient/Control Mix Circ Anticoag PTT Patient Temperature ABG pH ABG pH at Pt Temp ABG pCO2 ABG pCO2 at Pt Temp ABG pO2 ABG pO2 at Pt Temp ABG HCO3 ABG Total CO2 ABG O2 Saturation ABG Base Excess ABG Sodium VBG pH VBG pCO2 VBG pO2 VBG HCO3 VBG Total CO2 VBG O2 Saturation VBG Base Excess Hemoglobin Hematocrit Potassium Glucose Ionized Calcium FiO2 Sodium Chloride Carbon Dioxide Anion Gap BUN Creatinine GFR Calculation BUN/Creatinine Ratio POC Glucose 110 H 122 H 114 H Calculated Osmolality Calcium Venous Ioniz Calcium Magnesium Total Bilirubin Direct Bilirubin AST ALT Alkaline Phosphatase Total Creatine Kinase CK-MB (CK-2) CK and CKMB Interp Troponin I Total Protein Albumin Globulin Albumin/Globulin Ratio Blood Type Antibody Screen Crossmatch Blood Bank Comment Quality Measures - VTE Contraindication to Pharmacological VTE Prophylaxis: High Risk of Bleeding
[2017-02-11 09:27] LABS: ABG Base Excess -2.1 MMOL/L (-2.5-2.5); ABG HCO3 22.6 MMOL/L (20-26); ABG Oxygen Saturation 98.2 % (95-100); ABG PCO2 37.2 MM HG (35-48); ABG PH 7.389 (7.35-7.45); Glucose Heart Surgery 113 MG/DL (74-106); Hematocrit Heart Surgery 35.6 PERCENT (42-52); Hemoglobin Heart Surgery 11.5 G/DL (14.0-18.0); Potassium Heart/CVR 3.9 MMOL/L (3.5-5.1)
--- NOTE | 2017-02-11 09:32 | XRay Report ---
Exam: XR chest 1V portable Date: 02/11/2017 4:00 AM Indication: Post chest tube/mediastinal drain removal Comparison: 02/10/2017 Technical:AP portable Findings: Right IJ catheter is present with the distal tip in the superior vena cava pressure percent of dialysis catheter. A left-sided IJ catheter is in the superior vena cava. Bilateral change in the right base. Sternotomy wires are present. Endotracheal tube at the level of mid clavicle and the nasogastric tube traverses esophagus. Minimal alveolar density in the left base. No obvious pneumothorax. Faint area of linear air is present just the midline along the sternum could represent a small amount of pneumomediastinum Impression: 1. Stable position of life-support tubing with interval removal of the thoracotomy tube mediastinal drain without pneumothorax 2. Atelectatic change in both bases right greater than left 3. Previous sternotomy and stable position of the right-sided dialysis catheter and the left-sided IJ catheter 4. Minimal pneumomediastinum with linear air in the sternal region PROCEDURE INTERPRETED AT [facility] [place] DEPARTMENT OF RADIOLOGY Final Report Signed by: Dr. Abel Alvarado
--- NOTE | 2017-02-11 09:35 | Dialysis Note ---
Dialysis Note - Dialysis Note S: Pt seen on dialysis. No c/o. Trying to speak around the ETT. "a little tight in the chest" O: VSS & AF. A: Tolerating routine HD s complications. P: continue HD as prescribed. UF 2.5L as tolerated by hemodynamics.
[2017-02-11] MEDS: MORPHINE 2 MG/1 ML SYRINGE IV PRN ×3 (10:09→21:09)
[2017-02-11] MEDS: CHLORHEXIDINE 0.12% ORAL RINSE 60 ML BOTTLE SWISH/SPIT SCH ×2 (10:11→21:13)
[2017-02-11 13:21] LABS: ABG Base Excess -3.2 MMOL/L (-2.5-2.5); ABG HCO3 21.8 MMOL/L (20-26); ABG Oxygen Saturation 90.9 % (95-100); ABG PCO2 38.9 MM HG (35-48); ABG PH 7.367 (7.35-7.45); ABG PO2 61.1 MM HG (80-95); Glucose Heart Surgery 137 MG/DL (74-106); Hemoglobin Heart Surgery 11.6 G/DL (14.0-18.0); Potassium Heart/CVR 3.9 MMOL/L (3.5-5.1)
[2017-02-11] MEDS: INSULIN REGULAR 100 UNIT/ML SUBCUT SCH ×4 (13:28→21:33)
[2017-02-11] MEDS: LOSARTAN 50 MG TABLET PO SCH (13:29)
[2017-02-11 13:53] LABS: CKMB % 6.2 %
[2017-02-11 14:20] LABS: ABG Base Excess -1.5 MMOL/L (-2.5-2.5); ABG HCO3 23.6 MMOL/L (20-26); ABG PCO2 41.4 MM HG (35-48); ABG PH 7.374 (7.35-7.45); ABG PO2 57.1 MM HG (80-95); ABG TCO2 24.9 MMOL/L (23-27); Glucose Heart Surgery 158 MG/DL (74-106); Hemoglobin Heart Surgery 11.6 G/DL (14.0-18.0); Potassium Heart/CVR 4.1 MMOL/L (3.5-5.1)
[2017-02-11] MEDS ORDERED: oxyCODONE/ACETAMINOPHEN 5-325 MG TABLET PO PRN (14:37)
[2017-02-11] MEDS ORDERED: ALBUTEROL/IPRATROPIUM 3 ML NEB RESP TX SCH ×2 (14:46→19:00)
[2017-02-11] MEDS: ALBUTEROL/IPRATROPIUM 3 ML NEB RESP TX SCH ×2 (14:54→19:17)
[2017-02-11] MEDS: NICOTINE 21 MG/24 HR PATCH TRANSDERM SCH (17:45)
[2017-02-11] MEDS: SODIUM CHLORIDE 0.45% 1,000 ML IV SCH ×2 (18:19)
[2017-02-12] MEDS: MORPHINE 2 MG/1 ML SYRINGE IV PRN (00:59)
[2017-02-12] MEDS: ALBUTEROL/IPRATROPIUM 3 ML NEB RESP TX SCH ×2 (01:03→07:12)
[2017-02-12] MEDS: INSULIN REGULAR 100 UNIT/ML SUBCUT SCH ×3 (03:13→09:10)
[2017-02-12] MEDS: NITROGLYCERIN DRIP 50 MG/250 ML BOTTLE IV SCH ×2 (03:14→11:39)
[2017-02-12 04:40] LABS: Basophils % 0.1 % (0.0-0.8); Hematocrit 29.8 VOL% (42.0-52.0); Immature Granulocytes % 0.7 %; Immature Granulocytes Absolute 0.16 #; Lymphocytes # 0.6 10*3/uL (1.4-4.0); Lymphocytes % 2.7 % (21.2-54.2); Mean Corpuscular HGB Conc 33.6 GM/DL (32-36); Mean Corpuscular Hemoglobin 31 PG (27-34); Mean Corpuscular Volume 91.7 FL (87-102); Mean Platelet Volume 11.6 FL (9.6-12.0); Monocytes # 1.9 10*3/uL (0.11-0.8); Monocytes % 8.9 % (1.7-12.7); Neutrophils # 18.8 10*3/uL (1.4-7.4); Neutrophils % 87.6 % (38.7-73.9); Platelet Count 158 T/CUMM (130-400); Red Blood Count 3.25 MC/CUMM (3.8-5.5); Red Cell Distribution Width 17.2 % (9.3-17.3); White Blood Count 21.5 T/CUMM (4-12)
[2017-02-12 04:45] LABS: ABG Base Excess -2.4 MMOL/L (-2.5-2.5); ABG HCO3 22.2 MMOL/L (20-26); ABG Oxygen Saturation 91.3 % (95-100); ABG PCO2 41.2 MM HG (35-48); ABG PH 7.355 (7.35-7.45); ABG PO2 63.4 MM HG (80-95)
[2017-02-12 05:07] LABS: Alanine Aminotransferase 16 U/L (16-61); Albumin 2.8 G/DL (3.4-5.0); Alkaline Phosphatase 60 U/L (45-117); Aspartate Amino Transferase 36 U/L (0-37); Bilirubin,Direct 0.1 MG/DL (0.0-0.20); Bilirubin,Total < 0.39 MG/DL (0.2-1.0); Blood Urea Nitrogen 27 MG/DL (7-18); Calcium 8.2 MG/DL (8.5-10.1); Glucose 159 MG/DL (74-106); Magnesium 2.1 MG/DL (1.8-2.4); Osmolality,Calculated 288.3 MOS/KG (273-304); Potassium 4.2 MMOL/L (3.5-5.1); Sodium 141 MMOL/L (136-145); Total Protein 5.6 G/DL (6.4-8.3)
[2017-02-12 06:21] LABS: Band Neutrophils 2 % (0-10); Lymphocytes 5 % (20-55); Myelocytes 1 %; Platelet Estimate Normal; Promyelocytes 1 %; Segmented Neutrophils 84 % (50-85); Total Cells Counted 100
--- NOTE | 2017-02-12 08:28 | Cardiothoracic Progress Note ---
Cardiothoracic Subjective Interval history: Patient looks and feels well. Vital signs have been stable and he is breathing comfortably. His arterial blood gases are marginal but they were marginal prior to surgery probably secondary to long-term cigarette use. His chest x- ray is satisfactory and I think we can transfer him to telemetry later this morning. Exam (Progress Note) - Constitutional Vitals: Period Temp Pulse Resp BP Sys/Thomas Pulse Ox Last 24 Hr 98.2 F-100.5 F 76-101 10-22 96-176/58-84 92-100 Result/EKG - Labs CBC & BMP: 02/12/17 04:28 02/12/17 04:28 Labs: Laboratory Results - last 24 hr 02/09/17 02/10/17 02/10/17 05:03 13:05 17:00 WBC RBC Hgb Hct MCV MCH MCHC RDW Plt Count MPV Neut % (Auto) Lymph % (Auto) [place] % (Auto) Eos % (Auto) Baso % (Auto) Neut # (Auto) Lymph # (Auto) [place] # (Auto) Eos # (Auto) Baso # (Auto) Total Counted Immature Gran % Nucleated RBC % Immature Gran # Segmented Neutrophils Band Neutrophils Lymphocytes Monocytes Myelocytes Promyelocytes Nucleated RBCs # Platelet Estimate Pappenheimer Bodies ABG pH ABG pCO2 ABG pO2 ABG HCO3 ABG Total CO2 ABG O2 Saturation ABG Base Excess Hemoglobin Hematocrit Potassium Glucose Sodium Chloride Carbon Dioxide Anion Gap BUN Creatinine GFR Calculation BUN/Creatinine Ratio POC Glucose 162 H 129 H Calculated Osmolality Calcium Magnesium Total Bilirubin Direct Bilirubin AST ALT Alkaline Phosphatase Total Creatine Kinase CK-MB (CK-2) CK and CKMB Interp Troponin I Total Protein Albumin Globulin Albumin/Globulin Ratio Blood Type O POSITIVE Antibody Screen Negative Crossmatch See Detail 02/10/17 02/10/17 02/10/17 18:04 19:04 20:00 WBC RBC Hgb Hct MCV MCH MCHC RDW Plt Count MPV Neut % (Auto) Lymph % (Auto) [place] % (Auto) Eos % (Auto) Baso % (Auto) Neut # (Auto) Lymph # (Auto) [place] # (Auto) Eos # (Auto) Baso # (Auto) Total Counted Immature Gran % Nucleated RBC % Immature Gran # Segmented Neutrophils Band Neutrophils Lymphocytes Monocytes Myelocytes Promyelocytes Nucleated RBCs # Platelet Estimate Pappenheimer Bodies ABG pH ABG pCO2 ABG pO2 ABG HCO3 ABG Total CO2 ABG O2 Saturation ABG Base Excess Hemoglobin Hematocrit Potassium Glucose Sodium Chloride Carbon Dioxide Anion Gap BUN Creatinine GFR Calculation BUN/Creatinine Ratio POC Glucose 168 H 162 H 148 H Calculated Osmolality Calcium Magnesium Total Bilirubin Direct Bilirubin AST ALT Alkaline Phosphatase Total Creatine Kinase CK-MB (CK-2) CK and CKMB Interp Troponin I Total Protein Albumin Globulin Albumin/Globulin Ratio Blood Type Antibody Screen Crossmatch 02/10/17 02/10/17 02/10/17 20:59 21:59 23:05 WBC RBC Hgb Hct MCV MCH MCHC RDW Plt Count MPV Neut % (Auto) Lymph % (Auto) [place] % (Auto) Eos % (Auto) Baso % (Auto) Neut # (Auto) Lymph # (Auto) [place] # (Auto) Eos # (Auto) Baso # (Auto) Total Counted Immature Gran % Nucleated RBC % Immature Gran # Segmented Neutrophils Band Neutrophils Lymphocytes Monocytes Myelocytes Promyelocytes Nucleated RBCs # Platelet Estimate Pappenheimer Bodies ABG pH ABG pCO2 ABG pO2 ABG HCO3 ABG Total CO2 ABG O2 Saturation ABG Base Excess Hemoglobin Hematocrit Potassium Glucose Sodium Chloride Carbon Dioxide Anion Gap BUN Creatinine GFR Calculation BUN/Creatinine Ratio POC Glucose 158 H 117 H 146 H Calculated Osmolality Calcium Magnesium Total Bilirubin Direct Bilirubin AST ALT Alkaline Phosphatase Total Creatine Kinase CK-MB (CK-2) CK and CKMB Interp Troponin I Total Protein Albumin Globulin Albumin/Globulin Ratio Blood Type Antibody Screen Crossmatch 02/10/17 02/11/17 02/11/17 23:57 00:59 02:05 WBC RBC Hgb Hct MCV MCH MCHC RDW Plt Count MPV Neut % (Auto) Lymph % (Auto) [place] % (Auto) Eos % (Auto) Baso % (Auto) Neut # (Auto) Lymph # (Auto) [place] # (Auto) Eos # (Auto) Baso # (Auto) Total Counted Immature Gran % Nucleated RBC % Immature Gran # Segmented Neutrophils Band Neutrophils Lymphocytes Monocytes Myelocytes Promyelocytes Nucleated RBCs # Platelet Estimate Pappenheimer Bodies ABG pH ABG pCO2 ABG pO2 ABG HCO3 ABG Total CO2 ABG O2 Saturation ABG Base Excess Hemoglobin Hematocrit Potassium Glucose Sodium Chloride Carbon Dioxide Anion Gap BUN Creatinine GFR Calculation BUN/Creatinine Ratio POC Glucose 156 H 150 H 144 H Calculated Osmolality Calcium Magnesium Total Bilirubin Direct Bilirubin AST ALT Alkaline Phosphatase Total Creatine Kinase CK-MB (CK-2) CK and CKMB Interp Troponin I Total Protein Albumin Globulin Albumin/Globulin Ratio Blood Type Antibody Screen Crossmatch 02/11/17 02/11/17 02/11/17 03:08 03:58 05:16 WBC RBC Hgb Hct MCV MCH MCHC RDW Plt Count MPV Neut % (Auto) Lymph % (Auto) [place] % (Auto) Eos % (Auto) Baso % (Auto) Neut # (Auto) Lymph # (Auto) [place] # (Auto) Eos # (Auto) Baso # (Auto) Total Counted Immature Gran % Nucleated RBC % Immature Gran # Segmented Neutrophils Band Neutrophils Lymphocytes Monocytes Myelocytes Promyelocytes Nucleated RBCs # Platelet Estimate Pappenheimer Bodies ABG pH ABG pCO2 ABG pO2 ABG HCO3 ABG Total CO2 ABG O2 Saturation ABG Base Excess Hemoglobin Hematocrit Potassium Glucose Sodium Chloride Carbon Dioxide Anion Gap BUN Creatinine GFR Calculation BUN/Creatinine Ratio POC Glucose 142 H 133 H 110 H Calculated Osmolality Calcium Magnesium Total Bilirubin Direct Bilirubin AST ALT Alkaline Phosphatase Total Creatine Kinase CK-MB (CK-2) CK and CKMB Interp Troponin I Total Protein Albumin Globulin Albumin/Globulin Ratio Blood Type Antibody Screen Crossmatch 02/11/17 02/11/17 02/11/17 06:02 07:14 09:24 WBC RBC Hgb Hct MCV MCH MCHC RDW Plt Count MPV Neut % (Auto) Lymph % (Auto) [place] % (Auto) Eos % (Auto) Baso % (Auto) Neut # (Auto) Lymph # (Auto) [place] # (Auto) Eos # (Auto) Baso # (Auto) Total Counted Immature Gran % Nucleated RBC % Immature Gran # Segmented Neutrophils Band Neutrophils Lymphocytes Monocytes Myelocytes Promyelocytes Nucleated RBCs # Platelet Estimate Pappenheimer Bodies ABG pH 7.389 ABG pCO2 37.2 ABG pO2 109.0 H ABG HCO3 22.6 ABG Total CO2 20.0 L ABG O2 Saturation 98.2 ABG Base Excess -2.1 Hemoglobin 11.5 L D Hematocrit 35.6 L Potassium 3.9 Glucose 113 H Sodium Chloride Carbon Dioxide Anion Gap BUN Creatinine GFR Calculation BUN/Creatinine Ratio POC Glucose 122 H 114 H Calculated Osmolality Calcium Magnesium Total Bilirubin Direct Bilirubin AST ALT Alkaline Phosphatase Total Creatine Kinase CK-MB (CK-2) CK and CKMB Interp Troponin I Total Protein Albumin Globulin Albumin/Globulin Ratio Blood Type Antibody Screen Crossmatch 02/11/17 02/11/17 02/11/17 12:21 13:15 13:15 WBC RBC Hgb Hct MCV MCH MCHC RDW Plt Count MPV Neut % (Auto) Lymph % (Auto) [place] % (Auto) Eos % (Auto) Baso % (Auto) Neut # (Auto) Lymph # (Auto) [place] # (Auto) Eos # (Auto) Baso # (Auto) Total Counted Immature Gran % Nucleated RBC % Immature Gran # Segmented Neutrophils Band Neutrophils Lymphocytes Monocytes Myelocytes Promyelocytes Nucleated RBCs # Platelet Estimate Pappenheimer Bodies ABG pH 7.367 ABG pCO2 38.9 ABG pO2 61.1 L ABG HCO3 21.8 ABG Total CO2 23.0 ABG O2 Saturation 90.9 L ABG Base Excess -3.2 L Hemoglobin 11.6 L Hematocrit 34.0 L Potassium 3.9 Glucose 137 H Sodium Chloride Carbon Dioxide Anion Gap BUN Creatinine GFR Calculation BUN/Creatinine Ratio POC Glucose 120 H Calculated Osmolality Calcium Magnesium Total Bilirubin Direct Bilirubin AST ALT Alkaline Phosphatase Total Creatine Kinase 673 H D CK-MB (CK-2) 41.8 H D CK and CKMB Interp 6.2 Troponin I 21.000 H D Total Protein Albumin Globulin Albumin/Globulin Ratio Blood Type Antibody Screen Crossmatch 02/11/17 02/11/17 02/11/17 14:12 17:13 21:22 WBC RBC Hgb Hct MCV MCH MCHC RDW Plt Count MPV Neut % (Auto) Lymph % (Auto) [place] % (Auto) Eos % (Auto) Baso % (Auto) Neut # (Auto) Lymph # (Auto) [place] # (Auto) Eos # (Auto) Baso # (Auto) Total Counted Immature Gran % Nucleated RBC % Immature Gran # Segmented Neutrophils Band Neutrophils Lymphocytes Monocytes Myelocytes Promyelocytes Nucleated RBCs # Platelet Estimate Pappenheimer Bodies ABG pH 7.374 ABG pCO2 41.4 ABG pO2 57.1 L ABG HCO3 23.6 ABG Total CO2 24.9 ABG O2 Saturation 89.0 L ABG Base Excess -1.5 Hemoglobin 11.6 L Hematocrit 34.0 L Potassium 4.1 Glucose 158 H Sodium Chloride Carbon Dioxide Anion Gap BUN Creatinine GFR Calculation BUN/Creatinine Ratio POC Glucose 148 H 185 H Calculated Osmolality Calcium Magnesium Total Bilirubin Direct Bilirubin AST ALT Alkaline Phosphatase Total Creatine Kinase CK-MB (CK-2) CK and CKMB Interp Troponin I Total Protein Albumin Globulin Albumin/Globulin Ratio Blood Type Antibody Screen Crossmatch 02/12/17 02/12/17 02/12/17 01:24 04:28 04:28 WBC 21.5 H RBC 3.25 L Hgb 10.0 L Hct 29.8 L MCV 91.7 MCH 31 MCHC 33.6 RDW 17.2 Plt Count 158 MPV 11.6 Neut % (Auto) 87.6 H Lymph % (Auto) 2.7 L [place] % (Auto) 8.9 Eos % (Auto) 0.0 Baso % (Auto) 0.1 Neut # (Auto) 18.8 H Lymph # (Auto) 0.6 L [place] # (Auto) 1.9 H Eos # (Auto) 0.0 Baso # (Auto) 0.0 Total Counted 100 Immature Gran % 0.7 Nucleated RBC % 0.0 Immature Gran # 0.16 Segmented Neutrophils 84 Band Neutrophils 2 Lymphocytes 5 L Monocytes 7 Myelocytes 1 Promyelocytes 1 Nucleated RBCs # 0.00 Platelet Estimate Normal Pappenheimer Bodies Field Marketing Director ABG pH ABG pCO2 ABG pO2 ABG HCO3 ABG Total CO2 ABG O2 Saturation ABG Base Excess Hemoglobin Hematocrit Potassium 4.2 Glucose 159 H Sodium 141 Chloride 105 Carbon Dioxide 23 Anion Gap 17.2 H BUN 27 H Creatinine 4.00 H GFR Calculation 16 BUN/Creatinine Ratio 6.00 POC Glucose 160 H Calculated Osmolality 288.3 Calcium 8.2 L Magnesium 2.1 Total Bilirubin < 0.39 Direct Bilirubin 0.1 AST 36 ALT 16 Alkaline Phosphatase 60 Total Creatine Kinase CK-MB (CK-2) CK and CKMB Interp Troponin I Total Protein 5.6 L Albumin 2.8 L Globulin 2.8 Albumin/Globulin Ratio 1.0 L Blood Type Antibody Screen Crossmatch 02/12/17 02/12/17 02/12/17 04:28 05:30 07:35 WBC RBC Hgb Hct MCV MCH MCHC RDW Plt Count MPV Neut % (Auto) Lymph % (Auto) [place] % (Auto) Eos % (Auto) Baso % (Auto) Neut # (Auto) Lymph # (Auto) [place] # (Auto) Eos # (Auto) Baso # (Auto) Total Counted Immature Gran % Nucleated RBC % Immature Gran # Segmented Neutrophils Band Neutrophils Lymphocytes Monocytes Myelocytes Promyelocytes Nucleated RBCs # Platelet Estimate Pappenheimer Bodies ABG pH 7.355 ABG pCO2 41.2 ABG pO2 63.4 L ABG HCO3 22.2 ABG Total CO2 20.0 L ABG O2 Saturation 91.3 L ABG Base Excess -2.4 Hemoglobin Hematocrit Potassium Glucose Sodium Chloride Carbon Dioxide Anion Gap BUN Creatinine GFR Calculation BUN/Creatinine Ratio POC Glucose 171 H 156 H Calculated Osmolality Calcium Magnesium Total Bilirubin Direct Bilirubin AST ALT Alkaline Phosphatase Total Creatine Kinase CK-MB (CK-2) CK and CKMB Interp Troponin I Total Protein Albumin Globulin Albumin/Globulin Ratio Blood Type Antibody Screen Crossmatch Quality Measures - VTE Contraindication to Pharmacological VTE Prophylaxis: High Risk of Bleeding
[2017-02-12] MEDS ORDERED: ZALEPLON 5 MG CAPSULE PO PRN (08:30)
[2017-02-12] MEDS ORDERED: MAGNESIUM SULF RIDER 2 GM in PREMIX 1 EACH IV PRN (08:30)
[2017-02-12] MEDS ORDERED: ONDANSETRON 4 MG/2 ML VIAL IV PRN (08:30)
[2017-02-12] MEDS ORDERED: ACETAMINOPHEN 325 MG TABLET PO PRN (08:30)
[2017-02-12] MEDS ORDERED: DEXTROSE 50% 25 GM/50 ML VIAL IV PRN ×2 (08:30)
[2017-02-12] MEDS ORDERED: GLUCAGON 1 MG VIAL IM PRN ×2 (08:30)
[2017-02-12] MEDS ORDERED: ALUMINUM/MAGNES/SIMETH MAX STR 30 ML UDCUP PO PRN (08:30)
[2017-02-12] MEDS ORDERED: MORPHINE 2 MG/1 ML SYRINGE IV PRN (08:30)
[2017-02-12] MEDS ORDERED: POTASSIUM CHLORIDE 20 MEQ TABLET PO PRN (08:30)
[2017-02-12] MEDS ORDERED: MAGNESIUM SULF RIDER 4 GM in PREMIX 1 EACH IV PRN (08:30)
[2017-02-12] MEDS ORDERED: MAGNESIUM HYDROXIDE SUSP 30 ML UDCUP PO PRN (08:30)
[2017-02-12] MEDS ORDERED: SODIUM CHLOR 0.45% KCL 20 MEQ 20 MEQ/1,000 ML BAG IV SCH (08:30)
--- NOTE | 2017-02-12 08:41 | XRay Report ---
Exam: XR chest 1V portable Date: 02/12/2017 4:00 AM Indication: Post chest tube removal follow-up extubation Comparison: 02/11/2017 Technical: AP portable Findings: Endotracheal tube and nasogastric tube have been removed. Sternotomy wires are present. A right-sided dialysis catheter is present and a left-sided IJ catheter is present both in the superior vena cava. Patchy interstitial infiltrate the right base with elevation right hemidiaphragm and some atelectatic change in the left base. No pneumothorax external cardiac leads are present. Impression: 1. Removal endotracheal tube and nasogastric tube 2. Stable appearance of left IJ catheter and right IJ dialysis catheter 3. Cardiomegaly with mild interstitial infiltrates and atelectatic change in both bases 4. Previous sternotomy PROCEDURE INTERPRETED AT [facility] DEPARTMENT OF RADIOLOGY Final Report Signed by: Dr. Abel Alvarado
[2017-02-12] MEDS: LOSARTAN 50 MG TABLET PO SCH (09:02)
[2017-02-12] MEDS: NICOTINE 21 MG/24 HR PATCH TRANSDERM SCH (09:02)
[2017-02-12] MEDS: METOPROLOL TARTRATE 50 MG TABLET PO SCH ×2 (09:03→20:51)
[2017-02-12] MEDS: CHLORHEXIDINE 0.12% ORAL RINSE 60 ML BOTTLE SWISH/SPIT SCH ×3 (09:14→20:52)
[2017-02-12] MEDS: ASPIRIN EC 325 MG TABLET PO SCH (09:17)
[2017-02-12] MEDS: PANTOPRAZOLE 40 MG TABLET PO SCH (09:17)
[2017-02-12] MEDS: FERROUS SULFATE 325 MG TABLET PO SCH (09:17)
[2017-02-12] MEDS: DOCUSATE SODIUM 100 MG CAPSULE PO SCH (09:17)
--- NOTE | 2017-02-12 13:02 | Cardiology Progress Note ---
Assessment and Plan (1) S/P CABG x 3 Status: Acute Assessment and plan: He is postop day 2, progressing well, hemodynamically stable, extubated. Current Visit: Yes (2) Coronary artery disease Status: Chronic Current Visit: Yes (3) HTN (hypertension) with goal to be determined Status: Chronic Assessment and plan: Controlled Current Visit: Yes (4) Peripheral vascular disease Status: Chronic Current Visit: Yes (5) Chronic renal insufficiency Status: Chronic Current Visit: Yes (6) Anemia Status: Chronic Assessment and plan: Stable Current Visit: Yes Qualifiers: Anemia type: unspecified type Qualified Code(s): D64.9 - Anemia, unspecified Cardiology - PN: Subj Interval history: This is a patient of Dr. Lemus's, now postop day 2 status post three-vessel coronary artery bypass grafting. He also has renal failure and has been initiated on dialysis. Clinically he seems to be doing well. He has now been extubated. He has no particular complaints other than soreness at his incisions. Exam (Progress Note) - Constitutional Vitals: Period Temp Pulse Resp BP Sys/Thomas Pulse Ox Last 24 Hr 98.2 F-100.5 F 80-101 10-22 108-176/57-84 92-99 Exam: General appearance: normal weight, no acute distress - Head Head exam: Present: normal inspection, normocephalic, atraumatic. Absent: hematoma, laceration - Eye Eye exam: Present: EOMI. Absent: conjunctival injection, nystagmus, periorbital swelling, scleral icterus, laceration to eyelids Pupils: Present: PERRL. Absent: constricted, dilated, fixed, irregular, unequal - ENT ENT exam: Present: Normal exam, normal external ear exam - Neck Neck exam: Present: Left internal jugular catheter in place and bandaged without surrounding erythema, calor, exudate or bleeding. Absent: lymphadenopathy, meningismus, tenderness, thyromegaly - Respiratory Respiratory exam: Present: clear to auscultation bilaterally. Absent: accessory muscle use - Cardiovascular Cardiovascular exam: Present: regular rate and rhythm. Absent: carotid bruit, gallop, JVD, rubs - GI/Abdominal GI/Abdominal exam: Present: normal bowel sounds, soft. Absent: distended, firm , guarding, hernia, mass, tenderness, rebound. - Extremities Exam Extremities exam: Present: Left vein harvest site with wound edges well approximated and absence of Calor or erythema, normal capillary refill. Absent : calf tenderness, edema - Back Exam Back exam: Present: normal inspection. Absent: muscle spasm, vertebral tenderness - Neurological Exam Neurological exam: Present: alert, oriented X3, grossly intact without resting or intention tremor - Psychiatric Psychiatric exam: Present: normal affect, normal mood - Skin Skin exam: Present: normal color, warm, dry, intact. Absent: cyanosis, diaphoretic, rash, urticaria There is a right subclavian dialysis access catheter that is bandaged without evidence of erythema or calor, the midsternal wound is bandaged without evidence of surrounding erythema or calor, temporary pacemaker leads remained in the upper abdomen. Result/EKG - Labs CBC & BMP: 02/12/17 04:28 02/12/17 04:28 Lab Results: I have reviewed the past 24 hour labs Labs: Laboratory Results - last 24 hr 02/09/17 02/11/17 02/11/17 05:03 12:21 13:15 WBC RBC Hgb Hct MCV MCH MCHC RDW Plt Count MPV Neut % (Auto) Lymph % (Auto) [place] % (Auto) Eos % (Auto) Baso % (Auto) Neut # (Auto) Lymph # (Auto) [place] # (Auto) Eos # (Auto) Baso # (Auto) Total Counted Immature Gran % Nucleated RBC % Immature Gran # Segmented Neutrophils Band Neutrophils Lymphocytes Monocytes Myelocytes Promyelocytes Nucleated RBCs # Platelet Estimate Pappenheimer Bodies ABG pH ABG pCO2 ABG pO2 ABG HCO3 ABG Total CO2 ABG O2 Saturation ABG Base Excess Hemoglobin Hematocrit Potassium Glucose Sodium Chloride Carbon Dioxide Anion Gap BUN Creatinine GFR Calculation BUN/Creatinine Ratio POC Glucose 120 H Calculated Osmolality Calcium Magnesium Total Bilirubin Direct Bilirubin AST ALT Alkaline Phosphatase Total Creatine Kinase 673 H D CK-MB (CK-2) 41.8 H D CK and CKMB Interp 6.2 Troponin I 21.000 H D Total Protein Albumin Globulin Albumin/Globulin Ratio Blood Type O POSITIVE Antibody Screen Negative Crossmatch See Detail 02/11/17 02/11/17 02/11/17 13:15 14:12 17:13 WBC RBC Hgb Hct MCV MCH MCHC RDW Plt Count MPV Neut % (Auto) Lymph % (Auto) [place] % (Auto) Eos % (Auto) Baso % (Auto) Neut # (Auto) Lymph # (Auto) [place] # (Auto) Eos # (Auto) Baso # (Auto) Total Counted Immature Gran % Nucleated RBC % Immature Gran # Segmented Neutrophils Band Neutrophils Lymphocytes Monocytes Myelocytes Promyelocytes Nucleated RBCs # Platelet Estimate Pappenheimer Bodies ABG pH 7.367 7.374 ABG pCO2 38.9 41.4 ABG pO2 61.1 L 57.1 L ABG HCO3 21.8 23.6 ABG Total CO2 23.0 24.9 ABG O2 Saturation 90.9 L 89.0 L ABG Base Excess -3.2 L -1.5 Hemoglobin 11.6 L 11.6 L Hematocrit 34.0 L 34.0 L Potassium 3.9 4.1 Glucose 137 H 158 H Sodium Chloride Carbon Dioxide Anion Gap BUN Creatinine GFR Calculation BUN/Creatinine Ratio POC Glucose 148 H Calculated Osmolality Calcium Magnesium Total Bilirubin Direct Bilirubin AST ALT Alkaline Phosphatase Total Creatine Kinase CK-MB (CK-2) CK and CKMB Interp Troponin I Total Protein Albumin Globulin Albumin/Globulin Ratio Blood Type Antibody Screen Crossmatch 02/11/17 02/12/17 02/12/17 21:22 01:24 04:28 WBC 21.5 H RBC 3.25 L Hgb 10.0 L Hct 29.8 L MCV 91.7 MCH 31 MCHC 33.6 RDW 17.2 Plt Count 158 MPV 11.6 Neut % (Auto) 87.6 H Lymph % (Auto) 2.7 L [place] % (Auto) 8.9 Eos % (Auto) 0.0 Baso % (Auto) 0.1 Neut # (Auto) 18.8 H Lymph # (Auto) 0.6 L [place] # (Auto) 1.9 H Eos # (Auto) 0.0 Baso # (Auto) 0.0 Total Counted 100 Immature Gran % 0.7 Nucleated RBC % 0.0 Immature Gran # 0.16 Segmented Neutrophils 84 Band Neutrophils 2 Lymphocytes 5 L Monocytes 7 Myelocytes 1 Promyelocytes 1 Nucleated RBCs # 0.00 Platelet Estimate Normal Pappenheimer Bodies Cardiopulmonary Technologist ABG pH ABG pCO2 ABG pO2 ABG HCO3 ABG Total CO2 ABG O2 Saturation ABG Base Excess Hemoglobin Hematocrit Potassium Glucose Sodium Chloride Carbon Dioxide Anion Gap BUN Creatinine GFR Calculation BUN/Creatinine Ratio POC Glucose 185 H 160 H Calculated Osmolality Calcium Magnesium Total Bilirubin Direct Bilirubin AST ALT Alkaline Phosphatase Total Creatine Kinase CK-MB (CK-2) CK and CKMB Interp Troponin I Total Protein Albumin Globulin Albumin/Globulin Ratio Blood Type Antibody Screen Crossmatch 02/12/17 02/12/17 02/12/17 04:28 04:28 05:30 WBC RBC Hgb Hct MCV MCH MCHC RDW Plt Count MPV Neut % (Auto) Lymph % (Auto) [place] % (Auto) Eos % (Auto) Baso % (Auto) Neut # (Auto) Lymph # (Auto) [place] # (Auto) Eos # (Auto) Baso # (Auto) Total Counted Immature Gran % Nucleated RBC % Immature Gran # Segmented Neutrophils Band Neutrophils Lymphocytes Monocytes Myelocytes Promyelocytes Nucleated RBCs # Platelet Estimate Pappenheimer Bodies ABG pH 7.355 ABG pCO2 41.2 ABG pO2 63.4 L ABG HCO3 22.2 ABG Total CO2 20.0 L ABG O2 Saturation 91.3 L ABG Base Excess -2.4 Hemoglobin Hematocrit Potassium 4.2 Glucose 159 H Sodium 141 Chloride 105 Carbon Dioxide 23 Anion Gap 17.2 H BUN 27 H Creatinine 4.00 H GFR Calculation 16 BUN/Creatinine Ratio 6.00 POC Glucose 171 H Calculated Osmolality 288.3 Calcium 8.2 L Magnesium 2.1 Total Bilirubin < 0.39 Direct Bilirubin 0.1 AST 36 ALT 16 Alkaline Phosphatase 60 Total Creatine Kinase CK-MB (CK-2) CK and CKMB Interp Troponin I Total Protein 5.6 L Albumin 2.8 L Globulin 2.8 Albumin/Globulin Ratio 1.0 L Blood Type Antibody Screen Crossmatch 02/12/17 07:35 WBC RBC Hgb Hct MCV MCH MCHC RDW Plt Count MPV Neut % (Auto) Lymph % (Auto) [place] % (Auto) Eos % (Auto) Baso % (Auto) Neut # (Auto) Lymph # (Auto) [place] # (Auto) Eos # (Auto) Baso # (Auto) Total Counted Immature Gran % Nucleated RBC % Immature Gran # Segmented Neutrophils Band Neutrophils Lymphocytes Monocytes Myelocytes Promyelocytes Nucleated RBCs # Platelet Estimate Pappenheimer Bodies ABG pH ABG pCO2 ABG pO2 ABG HCO3 ABG Total CO2 ABG O2 Saturation ABG Base Excess Hemoglobin Hematocrit Potassium Glucose Sodium Chloride Carbon Dioxide Anion Gap BUN Creatinine GFR Calculation BUN/Creatinine Ratio POC Glucose 156 H Calculated Osmolality Calcium Magnesium Total Bilirubin Direct Bilirubin AST ALT Alkaline Phosphatase Total Creatine Kinase CK-MB (CK-2) CK and CKMB Interp Troponin I Total Protein Albumin Globulin Albumin/Globulin Ratio Blood Type Antibody Screen Crossmatch Quality Measures - VTE Contraindication to Pharmacological VTE Prophylaxis: High Risk of Bleeding
--- NOTE | 2017-02-12 13:06 | Nephrology Progress Note ---
Nephrology - PN: Subj Interval history: Seen in ICU prior to transfer to [facility]. Looks good, feeling better every day. Ate all of breakfast without c/o. Extubated. No complications s/p HD initiation daily for 3 days. Exam (PN)-Nephrology - Vital Signs Vital signs: Period Temp Pulse Resp BP Sys/Thomas Pulse Ox Last 24 Hr 98.2 F-100.5 F 80-101 10-22 108-176/57-84 92-99 - General Appearance General appearance: well-developed, chronically ill EENT: ATNC, PERRL, mucous membranes moist, hearing intact, vision intact Neck: no JVD, no thyromegaly Respiratory: no kyphosis, clear Cardiology: no murmurs, no rub, no edema Gastrointestinal: normoactive bowel sounds, no tenderness Integumentary: no rash, warm and dry Neurologic: no focal deficit, no asterixis, alert and oriented x3 Musculoskeletal: no deformities, no erythema Psychiatric: mood/affect appropriate, cooperative - Lab 02/12/17 04:28 02/12/17 04:28 Most recent lab results ABG pH 7.355 (7.35-7.45) 02/12/17 04:28 ABG pCO2 41.2 MM HG (35-48) 02/12/17 04:28 ABG pO2 63.4 MM HG (80-95) L 02/12/17 04:28 ABG HCO3 22.2 MMOL/L (20-26) 02/12/17 04:28 ABG O2 Saturation 91.3 % (95-100) L 02/12/17 04:28 Calcium 8.2 MG/DL (8.5-10.1) L 02/12/17 04:28 Phosphorus 4.1 MG/DL (2.5-4.9) 02/09/17 05:03 Magnesium 2.1 MG/DL (1.8-2.4) 02/12/17 04:28 Assessment and Plan (1) ESRD needing dialysis Problem details: No acute indication for HD at this time. Status: Acute Assessment and plan: Next planned routine CHD tomorrow am. patient financial services coordinator consult for arrangement for outpt HD at [facility], preferrably MWF schedule per patient request. Current Visit: Yes (2) Hypertension Problem details: likely renovascularly driven. D/Cd losartan, start valsartan 160mg daily. Goal <130/80. Status: Chronic Current Visit: Yes
[2017-02-12] MEDS: ATORVASTATIN 20 MG TABLET PO SCH (20:51)
[2017-02-12] MEDS: oxyCODONE/ACETAMINOPHEN 5-325 MG TABLET PO PRN (21:11)
[2017-02-13 05:06] LABS: Basophils % 0.1 % (0.0-0.8); Eosinophils % 0.1 % (0.00-10.9); Hematocrit 29.5 VOL% (42.0-52.0); Hemoglobin 9.6 GM/DL (14.0-18.0); Immature Granulocytes % 0.8 %; Immature Granulocytes Absolute 0.14 #; Lymphocytes # 0.8 10*3/uL (1.4-4.0); Lymphocytes % 4.7 % (21.2-54.2); Mean Corpuscular HGB Conc 32.5 GM/DL (32-36); Mean Corpuscular Hemoglobin 30 PG (27-34); Mean Corpuscular Volume 92.5 FL (87-102); Mean Platelet Volume 11.9 FL (9.6-12.0); Monocytes # 1.8 10*3/uL (0.11-0.8); Monocytes % 10.8 % (1.7-12.7); Neutrophils % 83.5 % (38.7-73.9); Platelet Count 157 T/CUMM (130-400); Red Blood Count 3.19 MC/CUMM (3.8-5.5); Red Cell Distribution Width 16.3 % (9.3-17.3); White Blood Count 16.8 T/CUMM (4-12)
[2017-02-13 05:30] LABS: Hypochromasia 1+; Lymphocytes 7 % (20-55); Segmented Neutrophils 80 % (50-85); Total Cells Counted 100
[2017-02-13 05:31] LABS: Macrocytosis 1+; Platelet Estimate Adequate
[2017-02-13 05:53] LABS: Albumin 2.6 G/DL (3.4-5.0); Bilirubin,Direct 0.1 MG/DL (0.0-0.20); Bilirubin,Indirect 0.3 MG/DL (0.0-1.0); Bilirubin,Total 0.4 MG/DL (0.2-1.0); CKMB % 1.9 %; Calcium 7.8 MG/DL (8.5-10.1); Magnesium 2.3 MG/DL (1.8-2.4); Osmolality,Calculated 288.5 MOS/KG (273-304); Potassium 4.4 MMOL/L (3.5-5.1); Total Protein 5.5 G/DL (6.4-8.3)
[2017-02-13 05:57] LABS: Troponin I Only 7.93 NG/ML (0.00-0.045)
[2017-02-13] MEDS ORDERED: FUROSEMIDE 40 MG/4 ML VIAL IV ONE (06:00)
--- NOTE | 2017-02-13 08:04 | XRay Report ---
Referring Physician: Yaya Sky Exam: XR chest 1V portable Date: February 13, 2017 at 6:49 AM Reason: Shortness of breath Comparison: Chest one view portable February 12, 2017 Findings: A right-sided dialysis catheter and left IJ catheter are again in place. The cardiac silhouette is again enlarged, and the patient is status post sternotomy. There are mild bibasilar opacities. This likely represents atelectasis, but pneumonia is not excluded. No pneumothorax is identified, but there may be minimal bilateral pleural fluid. The osseous structures appear stable. Impression: There has been no significant change. PROCEDURE INTERPRETED AT [facility] DEPARTMENT OF RADIOLOGY Final Report Signed by: Dr. Audrey Muse
--- NOTE | 2017-02-13 09:20 | Cardiothoracic Progress Note ---
Cardiothoracic Subjective Interval history: Patient seen on dialysis. He is comfortable and is breathing comfortably. His vital signs have been stable. He remains in sinus rhythm. His chest x-ray looks clear and he is slowly increasing activity according to routine postoperative protocol. Exam (Progress Note) - Constitutional Vitals: Period Temp Pulse Resp BP Sys/Thomas Pulse Ox Last 24 Hr 98 F-99.8 F 70-90 18-20 114-137/50-85 90-98 Result/EKG - Labs CBC & BMP: 02/13/17 04:18 02/13/17 04:18 Labs: Laboratory Results - last 24 hr 02/11/17 02/12/17 02/12/17 08:34 15:18 20:51 WBC RBC Hgb Hct MCV MCH MCHC RDW Plt Count MPV Neut % (Auto) Lymph % (Auto) [place] % (Auto) Eos % (Auto) Baso % (Auto) Neut # (Auto) Lymph # (Auto) [place] # (Auto) Eos # (Auto) Baso # (Auto) Total Counted Immature Gran % Nucleated RBC % Immature Gran # Segmented Neutrophils Lymphocytes Monocytes Nucleated RBCs # Platelet Estimate Hypochromasia Macrocytosis Sodium Potassium Chloride Carbon Dioxide Anion Gap BUN Creatinine GFR Calculation BUN/Creatinine Ratio Glucose POC Glucose 110 H 123 H 150 H Calculated Osmolality Calcium Magnesium Total Bilirubin Direct Bilirubin Indirect Bilirubin AST ALT Alkaline Phosphatase Total Creatine Kinase CK-MB (CK-2) CK and CKMB Interp Troponin I Total Protein Albumin Globulin Albumin/Globulin Ratio 02/13/17 02/13/17 02/13/17 04:18 04:18 07:33 WBC 16.8 H RBC 3.19 L Hgb 9.6 L Hct 29.5 L MCV 92.5 MCH 30 MCHC 32.5 RDW 16.3 Plt Count 157 MPV 11.9 Neut % (Auto) 83.5 H Lymph % (Auto) 4.7 L [place] % (Auto) 10.8 Eos % (Auto) 0.1 Baso % (Auto) 0.1 Neut # (Auto) 14.0 H Lymph # (Auto) 0.8 L [place] # (Auto) 1.8 H Eos # (Auto) 0.0 Baso # (Auto) 0.0 Total Counted 100 Immature Gran % 0.8 Nucleated RBC % 0.0 Immature Gran # 0.14 Segmented Neutrophils 80 Lymphocytes 7 L Monocytes 13 Nucleated RBCs # 0.00 Platelet Estimate Adequate Hypochromasia 1+ Macrocytosis 1+ Sodium 139 Potassium 4.4 Chloride 103 Carbon Dioxide 24 Anion Gap 16.4 H BUN 47 H D Creatinine 5.60 H GFR Calculation 11 BUN/Creatinine Ratio 8.00 Glucose 103 POC Glucose 116 H Calculated Osmolality 288.5 Calcium 7.8 L Magnesium 2.3 Total Bilirubin 0.40 Direct Bilirubin 0.1 Indirect Bilirubin 0.3 AST 18 ALT 15 L Alkaline Phosphatase 60 Total Creatine Kinase 269 D CK-MB (CK-2) 5.1 H D CK and CKMB Interp 1.9 Troponin I 7.930 H D Total Protein 5.5 L Albumin 2.6 L Globulin 2.9 Albumin/Globulin Ratio 0.8 L Quality Measures - VTE Contraindication to Pharmacological VTE Prophylaxis: High Risk of Bleeding Specialty Discharge - Follow Up or Referrals
--- NOTE | 2017-02-13 10:13 | Cardiology Progress Note ---
Assessment and Plan (1) S/P CABG x 3 Status: Acute Assessment and plan: Patient is status post CABG February 10 with ALVAREZ to LAD and saphenous vein graft to intermediate and obtuse marginal coronary arteries. He also has renal failure and has been started on dialysis this admission. He is postop day #3 today has been without complications. Current Visit: Yes (2) ESRD (end stage renal disease) on dialysis Status: Acute Assessment and plan: Nephrology following. Dialysis was initiated this admission. Current Visit: Yes (3) Anemia Status: Chronic Assessment and plan: This is stable. Current Visit: Yes Qualifiers: Anemia type: unspecified type Qualified Code(s): D64.9 - Anemia, unspecified (4) Coronary artery disease Status: Chronic Assessment and plan: Patient is status post revascularization with CABG. Doing well postoperatively. Current Visit: Yes (5) Hypertension Problem details: likely renovascularly driven. D/Cd losartan, start valsartan 160mg daily. Goal <130/80. Status: Chronic Assessment and plan: This is stable. Current Visit: Yes (6) Peripheral vascular disease Status: Chronic Current Visit: Yes Cardiology - PN: Subj Interval history: Patient was seen on dialysis. Patient is status post CABG February 10 with ALVAREZ to LAD and saphenous vein graft to intermediate and obtuse marginal coronary arteries. He also has renal failure and has been initiated on dialysis this admission. He is postop day #3 today. He is progressing well and is without any complaints this morning. He denies chest pain, heaviness and tightness. He also denies shortness of breath and heart racing/palpitations. Dressing to surgical incisions clean dry and intact. Vital signs are stable. Electrolytes are stable with potassium of 4.4 and magnesium of 2.3. Patient is currently in normal sinus rhythm with heart rates in the 80s without any overt arrhythmias or ectopy noted. Will continue to monitor patient closely on telemetry. Exam (Progress Note) - Constitutional Vitals: Period Temp Pulse Resp BP Sys/Thomas Pulse Ox Last 24 Hr 98 F-99.8 F 70-90 18-20 116-137/50-85 90-98 Exam: General appearance: normal weight, no acute distress - Head Head exam: Present: normal inspection, normocephalic, atraumatic. Absent: hematoma, laceration - Neck Neck exam: Present: Left internal jugular catheter in place and bandaged without surrounding erythema, exudate or bleeding. Absent: lymphadenopathy, meningismus, tenderness, thyromegaly - Respiratory Respiratory exam: Present: clear to auscultation bilaterally. Absent: accessory muscle use - Cardiovascular Cardiovascular exam: Present: regular rate and rhythm. Absent: carotid bruit, gallop, JVD, rubs - GI/Abdominal GI/Abdominal exam: Present: normal bowel sounds, soft. Absent: distended, firm , guarding, hernia, mass, tenderness, rebound. - Extremities Exam Extremities exam: Present: Left vein harvest site with wound edges well approximated and absence of Calor or erythema, normal capillary refill. Absent : calf tenderness, edema - Back Exam Back exam: Present: normal inspection. Absent: muscle spasm, vertebral tenderness - Neurological Exam Neurological exam: Present: alert, oriented X3, grossly intact without resting or intention tremor - Psychiatric Psychiatric exam: Present: normal affect, normal mood - Skin Skin exam: Present: normal color, warm, dry, intact. Absent: cyanosis, diaphoretic, rash, urticaria There is a right subclavian dialysis access catheter that is bandaged without evidence of erythema. The midsternal wound is bandaged without evidence of surrounding erythema. Temporary pacemaker leads remained in the upper abdomen. Result/EKG - Labs CBC & BMP: 02/13/17 04:18 02/13/17 04:18 Lab Results: I have reviewed the past 24 hour labs Labs: Laboratory Results - last 24 hr 02/11/17 02/12/17 02/12/17 08:34 15:18 20:51 WBC RBC Hgb Hct MCV MCH MCHC RDW Plt Count MPV Neut % (Auto) Lymph % (Auto) [place] % (Auto) Eos % (Auto) Baso % (Auto) Neut # (Auto) Lymph # (Auto) [place] # (Auto) Eos # (Auto) Baso # (Auto) Total Counted Immature Gran % Nucleated RBC % Immature Gran # Segmented Neutrophils Lymphocytes Monocytes Nucleated RBCs # Platelet Estimate Hypochromasia Macrocytosis Sodium Potassium Chloride Carbon Dioxide Anion Gap BUN Creatinine GFR Calculation BUN/Creatinine Ratio Glucose POC Glucose 110 H 123 H 150 H Calculated Osmolality Calcium Magnesium Total Bilirubin Direct Bilirubin Indirect Bilirubin AST ALT Alkaline Phosphatase Total Creatine Kinase CK-MB (CK-2) CK and CKMB Interp Troponin I Total Protein Albumin Globulin Albumin/Globulin Ratio 02/13/17 02/13/17 02/13/17 04:18 04:18 07:33 WBC 16.8 H RBC 3.19 L Hgb 9.6 L Hct 29.5 L MCV 92.5 MCH 30 MCHC 32.5 RDW 16.3 Plt Count 157 MPV 11.9 Neut % (Auto) 83.5 H Lymph % (Auto) 4.7 L [place] % (Auto) 10.8 Eos % (Auto) 0.1 Baso % (Auto) 0.1 Neut # (Auto) 14.0 H Lymph # (Auto) 0.8 L [place] # (Auto) 1.8 H Eos # (Auto) 0.0 Baso # (Auto) 0.0 Total Counted 100 Immature Gran % 0.8 Nucleated RBC % 0.0 Immature Gran # 0.14 Segmented Neutrophils 80 Lymphocytes 7 L Monocytes 13 Nucleated RBCs # 0.00 Platelet Estimate Adequate Hypochromasia 1+ Macrocytosis 1+ Sodium 139 Potassium 4.4 Chloride 103 Carbon Dioxide 24 Anion Gap 16.4 H BUN 47 H D Creatinine 5.60 H GFR Calculation 11 BUN/Creatinine Ratio 8.00 Glucose 103 POC Glucose 116 H Calculated Osmolality 288.5 Calcium 7.8 L Magnesium 2.3 Total Bilirubin 0.40 Direct Bilirubin 0.1 Indirect Bilirubin 0.3 AST 18 ALT 15 L Alkaline Phosphatase 60 Total Creatine Kinase 269 D CK-MB (CK-2) 5.1 H D CK and CKMB Interp 1.9 Troponin I 7.930 H D Total Protein 5.5 L Albumin 2.6 L Globulin 2.9 Albumin/Globulin Ratio 0.8 L Quality Measures - VTE Contraindication to Pharmacological VTE Prophylaxis: High Risk of Bleeding Specialty Discharge - Follow Up or Referrals
--- NOTE | 2017-02-13 10:15 | Dialysis Note ---
Dialysis Note - Dialysis Note S: Pt seen on dialysis. No c/o. O: VSS & AF A: ESRD on CHD. Tolerating without complications. P: Continue routine CHD as prescribed. Social work to arrange outpt dialysis admission.
[2017-02-13] MEDS ORDERED: HEPARIN 10,000 UNIT/10 ML VIAL IV PRN (11:53)
[2017-02-13] MEDS: NICOTINE 21 MG/24 HR PATCH TRANSDERM SCH (12:44)
[2017-02-13] MEDS: ASPIRIN EC 325 MG TABLET PO SCH (12:45)
[2017-02-13] MEDS: METOPROLOL TARTRATE 50 MG TABLET PO SCH ×2 (12:45→21:21)
[2017-02-13] MEDS: CHLORHEXIDINE 0.12% ORAL RINSE 60 ML BOTTLE SWISH/SPIT SCH ×2 (12:45→21:23)
[2017-02-13] MEDS: DOCUSATE SODIUM 100 MG CAPSULE PO SCH (12:45)
[2017-02-13] MEDS: FERROUS SULFATE 325 MG TABLET PO SCH (12:45)
[2017-02-13] MEDS: PANTOPRAZOLE 40 MG TABLET PO SCH (12:45)
[2017-02-13] MEDS: LOSARTAN 50 MG TABLET PO SCH (12:45)
[2017-02-13] MEDS: oxyCODONE/ACETAMINOPHEN 5-325 MG TABLET PO PRN (12:49)
--- NOTE | 2017-02-13 14:03 | Hospitalist Progress Note ---
Assessment and Plan (1) Elevated glucose Status: Resolved Assessment and plan: Resolved Current Visit: Yes (2) Hypertension Problem details: likely renovascularly driven. D/Cd losartan, start valsartan 160mg daily. Goal <130/80. Status: Chronic Assessment and plan: Nephrology managing Current Visit: Yes (3) CVA (cerebral vascular accident) Status: Chronic Assessment and plan: Per patient 6 weeks ago Current Visit: Yes (4) ESRD needing dialysis Problem details: No acute indication for HD at this time. Status: Acute Assessment and plan: HD initiated 02/08/17. Current Visit: Yes Hospitalist: Subjective Interval history: Patient doing well today. He is eager for discharge. FSGs are acceptable for inpatient. Has leukocytosis, most likely reactive, now trending down. I will now sign off. Please call with any questions or concerns. Exam - Constitutional Vitals: Period Temp Pulse Resp BP Sys/Thomas Pulse Ox Last 24 Hr 98 F-99.8 F 70-90 18-20 116-137/50-85 90-98 General appearance: over weight - Head Head exam: Present: normocephalic, atraumatic - Eye Eye exam: Present: EOMI Pupils: Present: DEB - ENT ENT exam: Present: normal exam - Neck Neck exam: Present: normal inspection - Respiratory Respiratory exam: Present: clear to auscultation bilaterally. Absent: rhonchi, wheezes - Cardiovascular Cardiovascular exam: Present: regular rate and rhythm, other (midline incision, bandaged) - GI/Abdominal GI/Abdominal exam: Present: normal bowel sounds, soft. Absent: tenderness, rebound - Extremities Exam Extremities exam: Present: normal inspection - Back Exam Back exam: Present: normal inspection - Neurological Exam Neurological exam: Present: alert, oriented X3 - Psychiatric Psychiatric exam: Present: normal affect, normal mood - Skin Skin exam: Present: warm, intact Results - Labs CBC & BMP: 02/13/17 04:18 02/13/17 04:18 Quality Measures - VTE Contraindication to Pharmacological VTE Prophylaxis: High Risk of Bleeding Specialty Discharge - Follow Up or Referrals
[2017-02-13] MEDS: ATORVASTATIN 20 MG TABLET PO SCH (21:21)
[2017-02-14 05:36] LABS: Basophils % 0.2 % (0.0-0.8); Eosinophils # 0.1 10*3/uL (0.0-0.87); Eosinophils % 0.4 % (0.00-10.9); Hematocrit 31.9 VOL% (42.0-52.0); Hemoglobin 10.4 GM/DL (14.0-18.0); Immature Granulocytes % 0.6 %; Immature Granulocytes Absolute 0.08 #; Lymphocytes # 1.1 10*3/uL (1.4-4.0); Mean Corpuscular HGB Conc 32.6 GM/DL (32-36); Mean Corpuscular Hemoglobin 31 PG (27-34); Mean Corpuscular Volume 94.1 FL (87-102); Mean Platelet Volume 11.7 FL (9.6-12.0); Monocytes # 1.3 10*3/uL (0.11-0.8); Monocytes % 9.3 % (1.7-12.7); Neutrophils # 10.9 10*3/uL (1.4-7.4); Neutrophils % 81.5 % (38.7-73.9); Platelet Count 164 T/CUMM (130-400); Red Blood Count 3.39 MC/CUMM (3.8-5.5); Red Cell Distribution Width 15.9 % (9.3-17.3); White Blood Count 13.4 T/CUMM (4-12)
[2017-02-14 06:12] LABS: Alanine Aminotransferase 17 U/L (16-61); Albumin 2.6 G/DL (3.4-5.0); Alkaline Phosphatase 62 U/L (45-117); Aspartate Amino Transferase 16 U/L (0-37); Bilirubin,Direct 0.1 MG/DL (0.0-0.20); Bilirubin,Indirect 0.4 MG/DL (0.0-1.0); Blood Urea Nitrogen 44 MG/DL (7-18); Calcium 7.9 MG/DL (8.5-10.1); Glucose 104 MG/DL (74-106); Magnesium 2.3 MG/DL (1.8-2.4); Osmolality,Calculated 289.4 MOS/KG (273-304); Potassium 4.1 MMOL/L (3.5-5.1); Sodium 140 MMOL/L (136-145)
--- NOTE | 2017-02-14 07:46 | XRay Report ---
Referring Physician: Yaya Sky Exam: XR chest 1V portable Date: February 14, 2017 at 6:17 AM Reason: Shortness of breath Comparison: Chest one view portable February 13, 2017 Findings: A right-sided dialysis catheter and left IJ catheter are again in place. The cardiac silhouette is again enlarged, and the patient is status post sternotomy. Bibasilar opacities are present and likely represent atelectasis, but there could also be pneumonia or pulmonary edema. No pneumothorax is identified, but there is mild right pleural fluid and minimal left pleural fluid. The osseous structures appear stable. Impression: There is increased opacification/pleural fluid at the right lung base. The study is otherwise similar to before. PROCEDURE INTERPRETED AT [facility] DEPARTMENT OF RADIOLOGY Final Report Signed by: Dr. Audrey Muse
--- NOTE | 2017-02-14 08:50 | Nephrology Progress Note ---
Nephrology - PN: Subj Interval history: Patient is resting comfortably no acute changes. Tolerated dialysis on yesterday. At this time making preparations for outpatient hemodialysis in the [facility] dialysis center. Exam (PN)-Nephrology - Vital Signs Vital signs: Period Temp Pulse Resp BP Sys/Thomas Pulse Ox Last 24 Hr 97.8 F-99.1 F 71-78 16-20 98-125/57-81 90-96 - General Appearance General appearance: well-developed, well-nourished EENT: ATNC Neck: supple Respiratory: clear Cardiology: regular rate, regular rhythm Gastrointestinal: normoactive bowel sounds, no tenderness Musculoskeletal: no deformities, no clubbing Psychiatric: mood/affect appropriate - Lab 02/14/17 05:02 02/14/17 05:02 Most recent lab results ABG pH 7.355 (7.35-7.45) 02/12/17 04:28 ABG pCO2 41.2 MM HG (35-48) 02/12/17 04:28 ABG pO2 63.4 MM HG (80-95) L 02/12/17 04:28 ABG HCO3 22.2 MMOL/L (20-26) 02/12/17 04:28 ABG O2 Saturation 91.3 % (95-100) L 02/12/17 04:28 Calcium 7.9 MG/DL (8.5-10.1) L 02/14/17 05:02 Phosphorus 4.1 MG/DL (2.5-4.9) 02/09/17 05:03 Magnesium 2.3 MG/DL (1.8-2.4) 02/14/17 05:02 Assessment and Plan (1) Coronary artery disease Status: Chronic Current Visit: Yes Qualifiers: Coronary Disease-Associated Artery/Lesion type: bypass graft (2) S/P CABG x 3 Status: Acute Current Visit: Yes (3) ESRD (end stage renal disease) on dialysis Status: Chronic Assessment and plan: Making preparation for outpatient hemodialysis. Current Visit: Yes Specialty Discharge - Follow Up or Referrals
--- NOTE | 2017-02-14 09:27 | Cardiology Progress Note ---
Assessment and Plan (1) S/P CABG x 3 Status: Acute Assessment and plan: Patient is status post CABG February 10 with ALVAREZ to LAD and saphenous vein graft to intermediate and obtuse marginal coronary arteries. He also has renal failure and has been started on dialysis this admission. He is postop day #4 today has been without complications. Continue aspirin, metoprolol, statin. Patient will follow-up with Dr. Lemus approximately 2 weeks after discharge with labs. Current Visit: Yes (2) ESRD (end stage renal disease) on dialysis Status: Chronic Assessment and plan: Nephrology following. Dialysis was initiated this admission. Current Visit: Yes (3) Anemia Status: Chronic Assessment and plan: This is stable. Current Visit: Yes Qualifiers: Anemia type: unspecified type Qualified Code(s): D64.9 - Anemia, unspecified (4) Coronary artery disease Status: Chronic Assessment and plan: Patient is status post revascularization with CABG. Doing well postoperatively. Current Visit: Yes Qualifiers: Coronary Disease-Associated Artery/Lesion type: bypass graft (5) Hypertension Problem details: likely renovascularly driven. D/Cd losartan, start valsartan 160mg daily. Goal <130/80. Status: Chronic Assessment and plan: This is stable. Current Visit: Yes (6) Peripheral vascular disease Status: Chronic Current Visit: Yes Cardiology - PN: Subj Interval history: Patient was seen and examined on the telemetry floor. Patient is status post CABG February 10 with ALVAREZ to LAD and saphenous vein graft to intermediate and obtuse marginal coronary arteries. He also has renal failure and dialysis was initiated this admission. He is postop day #4 today. He continues to progress well post CABG. He is without complaints this morning. He denies chest pain, heaviness and tightness. He also denies shortness of breath and heart racing/ palpitations. Surgical incisions continue to heal well without any signs of infection. He underwent dialysis yesterday, tolerated this well. He tells me that Dr. Sky told him this morning that he would possibly be ready for discharge tomorrow after dialysis if continues to do well. Nephrology has been working to secure him an outpatient dialysis unit. Encouraged patient to ambulate the halls today and continue to use incentive spirometry. Labs have been reviewed. Troponin continues to trend down as expected. Vital signs are stable. Patient is currently in a normal sinus rhythm with heart rates in the 70s without any overt arrhythmias or ectopy noted. Patient will follow with Dr. Lemus in approximately 2 weeks after discharge. Exam (Progress Note) - Constitutional Vitals: Period Temp Pulse Resp BP Sys/Thomas Pulse Ox Last 24 Hr 97.8 F-99.1 F 71-78 16-20 98-125/57-81 90-96 Exam: General appearance: normal weight, no acute distress - Head Head exam: Present: normal inspection, normocephalic, atraumatic. Absent: hematoma, laceration - Neck Neck exam: Present: Left internal jugular catheter in place and bandaged without surrounding erythema, exudate or bleeding. Absent: lymphadenopathy, meningismus, tenderness, thyromegaly - Respiratory Respiratory exam: Present: clear to auscultation bilaterally. Absent: accessory muscle use - Cardiovascular Cardiovascular exam: Present: regular rate and rhythm. Absent: carotid bruit, gallop, JVD, rubs - GI/Abdominal GI/Abdominal exam: Present: normal bowel sounds, soft. Absent: distended, firm , guarding, hernia, mass, tenderness, rebound. - Extremities Exam Extremities exam: Present: Left lower extremity vein harvest site with wound edges well approximated and absence of erythema, normal capillary refill. Absent: calf tenderness, edema - Back Exam Back exam: Present: normal inspection. Absent: muscle spasm, vertebral tenderness - Neurological Exam Neurological exam: Present: alert, oriented X3, grossly intact without resting or intention tremor - Psychiatric Psychiatric exam: Present: normal affect, normal mood - Skin Skin exam: Present: normal color, warm, dry, intact. Absent: cyanosis, diaphoretic, rash, urticaria There is a right subclavian dialysis access catheter that is bandaged without evidence of erythema. The midsternal wound is without surrounding erythema. Result/EKG - Labs CBC & BMP: 02/14/17 05:02 02/14/17 05:02 Lab Results: I have reviewed the past 24 hour labs Labs: Laboratory Results - last 24 hr 02/13/17 02/13/17 02/14/17 17:21 19:33 05:02 WBC 13.4 H RBC 3.39 L Hgb 10.4 L Hct 31.9 L MCV 94.1 MCH 31 MCHC 32.6 RDW 15.9 Plt Count 164 MPV 11.7 Neut % (Auto) 81.5 H Lymph % (Auto) 8.0 L [place] % (Auto) 9.3 Eos % (Auto) 0.4 Baso % (Auto) 0.2 Neut # (Auto) 10.9 H Lymph # (Auto) 1.1 L [place] # (Auto) 1.3 H Eos # (Auto) 0.1 Baso # (Auto) 0.0 Immature Gran % 0.6 Nucleated RBC % 0.0 Immature Gran # 0.08 Nucleated RBCs # 0.00 Sodium Potassium Chloride Carbon Dioxide Anion Gap BUN Creatinine GFR Calculation BUN/Creatinine Ratio Glucose POC Glucose 171 H 139 H Calculated Osmolality Calcium Magnesium Total Bilirubin Direct Bilirubin Indirect Bilirubin AST ALT Alkaline Phosphatase Total Creatine Kinase CK-MB (CK-2) Troponin I Total Protein Albumin Globulin Albumin/Globulin Ratio 02/14/17 02/14/17 05:02 07:34 WBC RBC Hgb Hct MCV MCH MCHC RDW Plt Count MPV Neut % (Auto) Lymph % (Auto) [place] % (Auto) Eos % (Auto) Baso % (Auto) Neut # (Auto) Lymph # (Auto) [place] # (Auto) Eos # (Auto) Baso # (Auto) Immature Gran % Nucleated RBC % Immature Gran # Nucleated RBCs # Sodium 140 Potassium 4.1 Chloride 102 Carbon Dioxide 26 Anion Gap 16.1 H BUN 44 H Creatinine 4.50 H GFR Calculation 14 BUN/Creatinine Ratio 9.00 Glucose 104 POC Glucose 139 H Calculated Osmolality 289.4 Calcium 7.9 L Magnesium 2.3 Total Bilirubin 0.50 Direct Bilirubin 0.1 Indirect Bilirubin 0.4 AST 16 ALT 17 Alkaline Phosphatase 62 Total Creatine Kinase 155 D CK-MB (CK-2) 1.6 Troponin I 5.440 H D Total Protein 6.0 L Albumin 2.6 L Globulin 3.4 Albumin/Globulin Ratio 0.7 L Quality Measures - VTE Contraindication to Pharmacological VTE Prophylaxis: High Risk of Bleeding Specialty Discharge - Follow Up or Referrals Follow up with: Adan Lemus MD [Physician] - (Appointment with Dr. Lemus in approximately 2 weeks with BMP, magnesium and EKG.)
--- NOTE | 2017-02-14 09:31 | Cardiothoracic Progress Note ---
Cardiothoracic Subjective Interval history: Patient looks and feels okay. Vital signs are stable and he is breathing comfortably. He is tolerating his dialysis treatments well. He is gradually increasing his activity. We plan for discharge tomorrow after dialysis. Exam (Progress Note) - Constitutional Vitals: Period Temp Pulse Resp BP Sys/Thomas Pulse Ox Last 24 Hr 97.8 F-99.1 F 71-78 16-20 98-125/57-81 90-96 Result/EKG - Labs CBC & BMP: 02/14/17 05:02 02/14/17 05:02 Labs: Laboratory Results - last 24 hr 02/13/17 02/13/17 02/14/17 17:21 19:33 05:02 WBC 13.4 H RBC 3.39 L Hgb 10.4 L Hct 31.9 L MCV 94.1 MCH 31 MCHC 32.6 RDW 15.9 Plt Count 164 MPV 11.7 Neut % (Auto) 81.5 H Lymph % (Auto) 8.0 L [place] % (Auto) 9.3 Eos % (Auto) 0.4 Baso % (Auto) 0.2 Neut # (Auto) 10.9 H Lymph # (Auto) 1.1 L [place] # (Auto) 1.3 H Eos # (Auto) 0.1 Baso # (Auto) 0.0 Immature Gran % 0.6 Nucleated RBC % 0.0 Immature Gran # 0.08 Nucleated RBCs # 0.00 Sodium Potassium Chloride Carbon Dioxide Anion Gap BUN Creatinine GFR Calculation BUN/Creatinine Ratio Glucose POC Glucose 171 H 139 H Calculated Osmolality Calcium Magnesium Total Bilirubin Direct Bilirubin Indirect Bilirubin AST ALT Alkaline Phosphatase Total Creatine Kinase CK-MB (CK-2) Troponin I Total Protein Albumin Globulin Albumin/Globulin Ratio 02/14/17 02/14/17 05:02 07:34 WBC RBC Hgb Hct MCV MCH MCHC RDW Plt Count MPV Neut % (Auto) Lymph % (Auto) [place] % (Auto) Eos % (Auto) Baso % (Auto) Neut # (Auto) Lymph # (Auto) [place] # (Auto) Eos # (Auto) Baso # (Auto) Immature Gran % Nucleated RBC % Immature Gran # Nucleated RBCs # Sodium 140 Potassium 4.1 Chloride 102 Carbon Dioxide 26 Anion Gap 16.1 H BUN 44 H Creatinine 4.50 H GFR Calculation 14 BUN/Creatinine Ratio 9.00 Glucose 104 POC Glucose 139 H Calculated Osmolality 289.4 Calcium 7.9 L Magnesium 2.3 Total Bilirubin 0.50 Direct Bilirubin 0.1 Indirect Bilirubin 0.4 AST 16 ALT 17 Alkaline Phosphatase 62 Total Creatine Kinase 155 D CK-MB (CK-2) 1.6 Troponin I 5.440 H D Total Protein 6.0 L Albumin 2.6 L Globulin 3.4 Albumin/Globulin Ratio 0.7 L Quality Measures - VTE Contraindication to Pharmacological VTE Prophylaxis: High Risk of Bleeding Specialty Discharge - Follow Up or Referrals Follow up with: Adan Lemus MD [Physician] - (Appointment with Dr. Lemus in approximately 2 weeks with BMP, magnesium and EKG.)
[2017-02-14] MEDS: ASPIRIN EC 325 MG TABLET PO SCH (09:45)
[2017-02-14] MEDS: METOPROLOL TARTRATE 50 MG TABLET PO SCH ×2 (09:45→20:48)
[2017-02-14] MEDS: LOSARTAN 50 MG TABLET PO SCH (09:45)
[2017-02-14] MEDS: FERROUS SULFATE 325 MG TABLET PO SCH (09:45)
[2017-02-14] MEDS: DOCUSATE SODIUM 100 MG CAPSULE PO SCH (09:45)
[2017-02-14] MEDS: PANTOPRAZOLE 40 MG TABLET PO SCH (09:46)
[2017-02-14] MEDS: NICOTINE 21 MG/24 HR PATCH TRANSDERM SCH (09:48)
[2017-02-14] MEDS: CHLORHEXIDINE 0.12% ORAL RINSE 60 ML BOTTLE SWISH/SPIT SCH ×2 (09:50→20:47)
[2017-02-14] MEDS: oxyCODONE/ACETAMINOPHEN 5-325 MG TABLET PO PRN (17:29)
[2017-02-14] MEDS: ATORVASTATIN 20 MG TABLET PO SCH (20:47)
--- NOTE | 2017-02-15 06:23 | Discharge Summary ---
Hospital Course - Hospital Course Hospital Course: Patient is a 67-year-old man who was admitted to the hospital with symptoms of shortness of breath and chest discomfort. She been rapidly progressive over the past 6 weeks. Patient is known to have chronic kidney disease and was approaching the need for dialysis prior to his hospitalization. He underwent evaluation including cardiac catheterization which demonstrated critical coronary disease and the patient was advised to have bypass surgery. It was elected to place hemodialysis catheters and begin hemodialysis prior to surgery and this was undertaken. Past medical history review of systems social history and family history are documented in admission note. Hospital course: Patient was taken to surgery following placement of the dialysis catheters and underwent two-vessel bypass grafting without incident. The patient's postoperative course was entirely without incident and he was continued on dialysis and was discharged home on the fifth postoperative day. He is to continue dialysis as an outpatient and is to return for follow-up for his surgical procedure in 1 month. Specialty Discharge - Follow Up or Referrals Follow up with: Adan Lemus MD [Physician] - (Appointment with Dr. Lemus in approximately 2 weeks with BMP, magnesium and EKG.) Yaya Sky MD [Physician] - 1 Month Discharge Plan - Discharge Data Condition at Discharge: Stable Discharge Diet: advance to your usual diet Activity: resume usual activities as tolerated Hygiene: no restrictions Weight Bearing at Discharge: full weight bearing Driving: not for (2 weeks) - Discharge Medications New Losartan [Cozaar] 50 mg PO DAILY tablet Aspirin EC Tab 325 mg PO DAILY tablet Atorvastatin [Lipitor] 20 mg PO BEDTIME tablet Metoprolol Tartrate Tab [Lopressor Tab] 50 mg PO BID #60 tablet Nicotine 21 mg/24 Hr Patch [Nicoderm CQ 21 mg/24 hr Patch] 1 patch TRANSDERM DAILY patch Continue Losartan [Cozaar] 50 mg PO BEDTIME Clopidogrel [Plavix] 75 mg PO BEDTIME Atorvastatin [Lipitor] 20 mg PO BEDTIME Discontinued NIFEdipine XL TAB [Procardia Xl] 90 mg PO BEDTIME Aspirin EC Tab 81 mg PO BEDTIME - Follow Up or Referral Follow Up: Adan Lemus MD [Physician] - (Appointment with Dr. Lemus in approximately 2 weeks with BMP, magnesium and EKG.) - Forms/Instructions Instructions: Heart Healthy Diet (GEN), Cigarette Smoking and Your Health (GEN) , Coronary Artery Bypass Graft, Fertilizer Supervisor (GEN), Sternal Precautions (GEN) Exam - Constitutional Vitals: Period Temp Pulse Resp BP Sys/Thomas Pulse Ox Last 24 Hr 97.4 F-99.2 F 68-75 16-18 105-126/71-86 90-98 Discharge Results Procedures and tests throughout hospitalization: Pending Orders 02/09/17 05:03 Cryoprecipitate Routine Fresh Frozen Plasma IN AM Red Blood Cells Leuko Red IN AM Single Donor Platelets IN AM Type and Screen IN AM 02/16/17 04:00 XR chest 2V IN AM Bilirubin Profile Adult IN AM Comp Blood Count Auto Diff IN AM Comprehensive Metabolic Panel IN AM Hepatic (Liver) Panel IN AM Magnesium IN AM Troponin,CKMB & Ck Total IN AM 02/17/17 04:00 XR chest 2V IN AM Bilirubin Profile Adult IN AM Comp Blood Count Auto Diff IN AM Comprehensive Metabolic Panel IN AM Hepatic (Liver) Panel IN AM Magnesium IN AM Troponin,CKMB & Ck Total IN AM Labs on day of discharge: Labs from last 24 hours 02/14/17 02/14/17 02/14/17 20:17 16:32 11:36 POC Glucose 149 H 211 H 106 02/14/17 07:34 POC Glucose 139 H DS: Provider Date of admission: 02/08/17 14:44 Primary care physician: Rena Chaparro Attending physician on admission: Rena Romano Consults: 02/08/17 11:43 Consult to Dietitian [CONS] Routine Reason for Dietitian: Other Consult Comment: low salt, low cholesterol, diet 02/12/17 08:31 Consult to Cardiac Rehabilitation [CONS] Routine Reason for Cardiac Rehabilitation: Other Consult Comment: Post CABG/heart surgery Consult to [facility], Educator [CONS] Routine Reason for Truck Packer: Diabetes Education Initial Insulin Education Consult Comment: insulin education Consult to Dietitian [CONS] Routine Reason for Dietitian: Dietary Consult Consult Comment: Cardiac, low salt, low cholesterol diet Consult to Physical Therapy [CONS] Routine Reason for Physical Therapy: Other Consult Comment: CV Rehab 02/13/17 09:34 Consult to Case Mgmt/Social Srvs [CONS] Routine Reason for Case Mgmt/Social Srvs: Dialysis Consult Comment: setup [facility] schedule in [place] Discharging clinician: Yaya Sky MD Expected date of discharge: 02/15/17
[2017-02-15 08:46] VITALS: BP 127/73
[2017-02-15] MEDS: NICOTINE 21 MG/24 HR PATCH TRANSDERM SCH (13:01)
[2017-02-15] MEDS: ASPIRIN EC 325 MG TABLET PO SCH (13:02)
[2017-02-15] MEDS: FERROUS SULFATE 325 MG TABLET PO SCH (13:02)
[2017-02-15] MEDS: CHLORHEXIDINE 0.12% ORAL RINSE 60 ML BOTTLE SWISH/SPIT SCH (13:03)
[2017-02-15] MEDS: METOPROLOL TARTRATE 50 MG TABLET PO SCH (13:03)
[2017-02-15] MEDS: DOCUSATE SODIUM 100 MG CAPSULE PO SCH (13:03)
[2017-02-15] MEDS: PANTOPRAZOLE 40 MG TABLET PO SCH (13:03)
[2017-02-15] MEDS: LOSARTAN 50 MG TABLET PO SCH (13:03)
== END 2017-02-15 14:10 | disposition home or self-care (01) | DRG 233 ==
LOC: N.TELEN 16:06 → INTOOBSV 16:06 → PREOBSVTOIN 02-08 16:04 → N.CVR 02-10 08:58 → N.ICU 02-11 14:42 → N.TELES 02-12 11:30
PROVIDERS: ADMIT Internal Medicine Cardiovascular Disease; ATTEND Internal Medicine Cardiovascular Disease
PROC: CLCCHCL (ICD-10-PCS; 2017-02-08 07:45)

== ENCOUNTER 2019-05-17 10:53 | Inpatient (IN) ==
[2019-05-17] MEDS ORDERED: SODIUM CHLORIDE 0.9% 500 ML IV STA (12:00)
[2019-05-17] MEDS ORDERED: MORPHINE 4 MG/1 ML VIAL IV STA (12:00)
[2019-05-17] MEDS ORDERED: ONDANSETRON 4 MG/2 ML VIAL IV STA (12:00)
[2019-05-17 12:22] LABS: Basophils % 0.2 % (0.0-0.8); Hematocrit 37.4 VOL% (42.0-52.0); Hemoglobin 12.4 GM/DL (14.0-18.0); Immature Granulocytes % 2.4 %; Immature Granulocytes Absolute 0.45 #; Lymphocytes # 0.4 10*3/uL (1.4-4.0); Mean Corpuscular HGB Conc 33.2 GM/DL (32-36); Mean Corpuscular Volume 92.3 FL (87-102); Mean Platelet Volume 10.7 FL (9.6-12.0); Monocytes % 5.1 % (1.7-12.7); Neutrophils % 90.3 % (38.7-73.9); Platelet Count 365 T/CUMM (130-400); Red Blood Count 4.05 MC/CUMM (3.8-5.5); Red Cell Distribution Width 14.1 % (9.3-17.3); White Blood Count 18.5 T/CUMM (4-12)
[2019-05-17 12:38] LABS: Albumin 1.2 G/DL (3.4-5.0); Bilirubin,Total 0.5 MG/DL (0.2-1.0); Calcium 7.9 MG/DL (8.5-10.1); Osmolality,Calculated 294.7 MOS/KG (273-304); Total Protein 6.1 G/DL (6.4-8.3)
[2019-05-17] MEDS ORDERED: POTASSIUM CHLORIDE 20 MEQ TABLET PO STA (12:46)
[2019-05-17 12:47] LABS: Lymphocytes 3 % (20-55)
[2019-05-17 12:48] LABS: Giant Platelets Few; Platelet Estimate Increased
[2019-05-17 12:49] LABS: Macrocytosis Slight; Segmented Neutrophils 5 % (50-85); Total Cells Counted 100
[2019-05-17] MEDS ORDERED: SODIUM CHLORIDE 0.9% 1,000 ML IV STA (12:50)
[2019-05-17] MEDS ORDERED: CEFEPIME 1,000 MG in SODIUM CHLORIDE 0.9% 100 ML IV STA (12:52)
[2019-05-17] MEDS ORDERED: VANCOMYCIN INJ 1,000 MG in SODIUM CHLORIDE 0.9% 250 ML IV STA (12:52)
[2019-05-17] MEDS ORDERED: VANCOMYCIN 1,000 MG VIAL ONE (12:56)
[2019-05-17] MEDS ORDERED: POTASSIUM CHLORIDE 20 MEQ TABLET PO ONE (16:46)
[2019-05-17] MEDS: PANTOPRAZOLE 40 MG TABLET PO SCH (17:23)
[2019-05-17] MEDS: CALCIUM ACETATE 667 MG CAPSULE PO SCH (17:23)
[2019-05-17] MEDS: HEPARIN 5,000 UNIT/1 ML VIAL SUBCUT SCH (17:23)
[2019-05-17] MEDS: NICOTINE 21 MG/24 HR PATCH TRANSDERM PRN (17:32)
[2019-05-17] MEDS: ONDANSETRON 4 MG/2 ML VIAL IV PRN (17:35)
[2019-05-17] MEDS: CEFEPIME 1,000 MG in SODIUM CHLORIDE 0.9% 100 ML IV SCH (17:35)
[2019-05-17] MEDS: METOPROLOL TARTRATE 50 MG TABLET PO SCH (21:06)
[2019-05-17] MEDS: POTASSIUM CHLORIDE 20 MEQ TABLET PO SCH (21:06)
[2019-05-17] MEDS: ATORVASTATIN 20 MG TABLET PO SCH (21:06)
[2019-05-17] MEDS: MORPHINE 4 MG/1 ML VIAL IV PRN (22:11)
[2019-05-18] MEDS: HEPARIN 5,000 UNIT/1 ML VIAL SUBCUT SCH ×3 (01:58→17:59)
[2019-05-18 05:21] LABS: Basophils % 0.2 % (0.0-0.8); Eosinophils % 0.2 % (0.00-10.9); Hematocrit 35.3 VOL% (42.0-52.0); Hemoglobin 11.5 GM/DL (14.0-18.0); Immature Granulocytes % 1.6 %; Immature Granulocytes Absolute 0.26 #; Lymphocytes % 6.2 % (21.2-54.2); Mean Corpuscular HGB Conc 32.6 GM/DL (32-36); Mean Corpuscular Volume 93.1 FL (87-102); Mean Platelet Volume 11.1 FL (9.6-12.0); Monocytes % 7.7 % (1.7-12.7); Neutrophils % 84.1 % (38.7-73.9); Platelet Count 339 T/CUMM (130-400); Red Blood Count 3.79 MC/CUMM (3.8-5.5); Red Cell Distribution Width 14.3 % (9.3-17.3); White Blood Count 16.3 T/CUMM (4-12)
[2019-05-18] MEDS: MORPHINE 4 MG/1 ML VIAL IV PRN ×4 (05:28→22:20)
[2019-05-18 06:07] LABS: Calcium 8.1 MG/DL (8.5-10.1); Osmolality,Calculated 296.1 MOS/KG (273-304); Thyroid Stimulating Hormone 0.938 uIU/ml (0.358-3.74)
[2019-05-18] MEDS ORDERED: PANTOPRAZOLE 40 MG TABLET PO SCH (09:00)
[2019-05-18] MEDS: CALCITRIOL 0.25 MCG CAPSULE PO SCH (09:28)
[2019-05-18] MEDS: CALCIUM ACETATE 667 MG CAPSULE PO SCH ×3 (09:28→17:59)
[2019-05-18] MEDS: METOPROLOL TARTRATE 50 MG TABLET PO SCH ×2 (09:28→20:56)
[2019-05-18] MEDS: ASPIRIN EC 81 MG TABLET PO SCH (09:28)
[2019-05-18] MEDS: buPROPion SR 100 MG TABLET PO SCH (09:28)
[2019-05-18] MEDS: PANTOPRAZOLE 40 MG TABLET PO SCH (09:29)
[2019-05-18] MEDS: POTASSIUM CHLORIDE 20 MEQ TABLET PO SCH ×2 (09:29→20:56)
[2019-05-18] MEDS: NICOTINE 21 MG/24 HR PATCH TRANSDERM PRN (10:29)
[2019-05-18] MEDS ORDERED: ceFAZolin 1,000 MG VIAL INTRAPERIT SCH (15:00)
[2019-05-18] MEDS: ceFAZolin 1,000 MG VIAL INTRAPERIT SCH (16:08)
[2019-05-18] MEDS: CEFEPIME 1,000 MG in SODIUM CHLORIDE 0.9% 100 ML IV SCH (18:12)
[2019-05-18] MEDS: ATORVASTATIN 20 MG TABLET PO SCH (20:56)
[2019-05-19] MEDS: HEPARIN 5,000 UNIT/1 ML VIAL SUBCUT SCH ×3 (01:06→17:18)
[2019-05-19 05:39] LABS: Basophils # 0.1 10*3/uL (0.0-0.2); Basophils % 0.3 % (0.0-0.8); Eosinophils # 0.1 10*3/uL (0.0-0.87); Eosinophils % 0.3 % (0.00-10.9); Hematocrit 38.6 VOL% (42.0-52.0); Hemoglobin 12.1 GM/DL (14.0-18.0); Immature Granulocytes % 2.5 %; Immature Granulocytes Absolute 0.44 #; Lymphocytes % 5.8 % (21.2-54.2); Mean Corpuscular HGB Conc 31.3 GM/DL (32-36); Mean Corpuscular Volume 94.8 FL (87-102); Mean Platelet Volume 11.1 FL (9.6-12.0); Monocytes % 7.7 % (1.7-12.7); Neutrophils % 83.4 % (38.7-73.9); Platelet Count 341 T/CUMM (130-400); Red Blood Count 4.07 MC/CUMM (3.8-5.5); Red Cell Distribution Width 14.4 % (9.3-17.3); White Blood Count 17.8 T/CUMM (4-12)
[2019-05-19 06:06] LABS: Calcium 8.6 MG/DL (8.5-10.1); Osmolality,Calculated 292.3 MOS/KG (273-304)
[2019-05-19] MEDS: MORPHINE 4 MG/1 ML VIAL IV PRN ×3 (06:07→15:49)
[2019-05-19] MEDS: CALCIUM ACETATE 667 MG CAPSULE PO SCH ×3 (09:01→17:18)
[2019-05-19] MEDS: ASPIRIN EC 81 MG TABLET PO SCH (09:01)
[2019-05-19] MEDS: METOPROLOL TARTRATE 50 MG TABLET PO SCH ×2 (09:02→20:58)
[2019-05-19] MEDS: CALCITRIOL 0.25 MCG CAPSULE PO SCH (09:02)
[2019-05-19] MEDS: POTASSIUM CHLORIDE 20 MEQ TABLET PO SCH ×2 (09:02→20:58)
[2019-05-19] MEDS: PANTOPRAZOLE 40 MG TABLET PO SCH (09:02)
[2019-05-19] MEDS: buPROPion SR 100 MG TABLET PO SCH (09:02)
[2019-05-19] MEDS: POLYETHYLENE GLYCOL POWDER 17 GM PACK PO SCH (10:21)
[2019-05-19] MEDS ORDERED: VANCOMYCIN INJ 1,000 MG in SODIUM CHLORIDE 0.9% 250 ML IV ONE (12:00)
[2019-05-19] MEDS: NICOTINE 21 MG/24 HR PATCH TRANSDERM PRN (13:15)
[2019-05-19] MEDS: ceFAZolin 1,000 MG VIAL INTRAPERIT SCH (15:55)
[2019-05-19] MEDS: ATORVASTATIN 20 MG TABLET PO SCH (20:58)
[2019-05-20] MEDS: HEPARIN 5,000 UNIT/1 ML VIAL SUBCUT SCH ×3 (01:52→17:32)
[2019-05-20 05:01] LABS: Basophils # 0.1 10*3/uL (0.0-0.2); Basophils % 0.3 % (0.0-0.8); Eosinophils # 0.1 10*3/uL (0.0-0.87); Eosinophils % 0.5 % (0.00-10.9); Hematocrit 35.5 VOL% (42.0-52.0); Hemoglobin 11.5 GM/DL (14.0-18.0); Immature Granulocytes % 3.3 %; Immature Granulocytes Absolute 0.51 #; Lymphocytes % 6.5 % (21.2-54.2); Mean Corpuscular HGB Conc 32.4 GM/DL (32-36); Mean Corpuscular Volume 94.4 FL (87-102); Mean Platelet Volume 11.4 FL (9.6-12.0); Monocytes % 7.1 % (1.7-12.7); Neutrophils % 82.3 % (38.7-73.9); Platelet Count 295 T/CUMM (130-400); Red Blood Count 3.76 MC/CUMM (3.8-5.5); Red Cell Distribution Width 14.4 % (9.3-17.3); White Blood Count 15.3 T/CUMM (4-12)
[2019-05-20 05:17] LABS: Calcium 8.4 MG/DL (8.5-10.1); Osmolality,Calculated 286.5 MOS/KG (273-304)
[2019-05-20 05:29] LABS: Anisocytosis 1+; Lymphocytes 7 % (20-55); Platelet Estimate Adequate; Segmented Neutrophils 91 % (50-85); Total Cells Counted 100
[2019-05-20] MEDS: PANTOPRAZOLE 40 MG TABLET PO SCH (08:01)
[2019-05-20] MEDS: CALCITRIOL 0.25 MCG CAPSULE PO SCH (08:01)
[2019-05-20] MEDS: CALCIUM ACETATE 667 MG CAPSULE PO SCH ×3 (08:01→17:32)
[2019-05-20] MEDS: POTASSIUM CHLORIDE 20 MEQ TABLET PO SCH ×2 (08:01→20:15)
[2019-05-20] MEDS: METOPROLOL TARTRATE 50 MG TABLET PO SCH ×2 (08:01→20:15)
[2019-05-20] MEDS: ASPIRIN EC 81 MG TABLET PO SCH (08:01)
[2019-05-20] MEDS: buPROPion SR 100 MG TABLET PO SCH (08:01)
[2019-05-20] MEDS: POLYETHYLENE GLYCOL POWDER 17 GM PACK PO SCH (08:01)
[2019-05-20] MEDS ORDERED: VANCOMYCIN INJ 1,000 MG in SODIUM CHLORIDE 0.9% 250 ML IV PRN (09:00)
[2019-05-20] MEDS ORDERED: CEFEPIME 1,000 MG VIAL INTRAPERIT SCH (10:00)
[2019-05-20] MEDS: CEFEPIME 1,000 MG VIAL INTRAPERIT SCH (10:54)
[2019-05-20] MEDS: NICOTINE 21 MG/24 HR PATCH TRANSDERM PRN (11:07)
[2019-05-20] MEDS: MORPHINE 4 MG/1 ML VIAL IV PRN ×2 (15:11→23:05)
[2019-05-20] MEDS: ATORVASTATIN 20 MG TABLET PO SCH (20:15)
[2019-05-21] MEDS: HEPARIN 5,000 UNIT/1 ML VIAL SUBCUT SCH ×3 (01:50→16:35)
[2019-05-21] MEDS: MORPHINE 4 MG/1 ML VIAL IV PRN ×2 (07:45→13:21)
[2019-05-21 07:54] LABS: Basophils % 0.2 % (0.0-0.8); Eosinophils # 0.1 10*3/uL (0.0-0.87); Eosinophils % 0.5 % (0.00-10.9); Hematocrit 35.5 VOL% (42.0-52.0); Hemoglobin 11.5 GM/DL (14.0-18.0); Immature Granulocytes % 4.2 %; Lymphocytes # 1.3 10*3/uL (1.4-4.0); Lymphocytes % 7.6 % (21.2-54.2); Mean Corpuscular HGB Conc 32.4 GM/DL (32-36); Mean Corpuscular Volume 95.2 FL (87-102); Mean Platelet Volume 11.2 FL (9.6-12.0); Monocytes % 5.9 % (1.7-12.7); Neutrophils % 81.6 % (38.7-73.9); Platelet Count 318 T/CUMM (130-400); Red Blood Count 3.73 MC/CUMM (3.8-5.5); Red Cell Distribution Width 14.5 % (9.3-17.3); White Blood Count 16.7 T/CUMM (4-12)
[2019-05-21] MEDS: CALCIUM ACETATE 667 MG CAPSULE PO SCH ×3 (08:01→16:35)
[2019-05-21] MEDS: buPROPion SR 100 MG TABLET PO SCH (08:01)
[2019-05-21] MEDS: CALCITRIOL 0.25 MCG CAPSULE PO SCH (08:01)
[2019-05-21] MEDS: ASPIRIN EC 81 MG TABLET PO SCH (08:01)
[2019-05-21] MEDS: POTASSIUM CHLORIDE 20 MEQ TABLET PO SCH ×2 (08:01→21:10)
[2019-05-21] MEDS: PANTOPRAZOLE 40 MG TABLET PO SCH (08:02)
[2019-05-21] MEDS: POLYETHYLENE GLYCOL POWDER 17 GM PACK PO SCH (08:02)
[2019-05-21] MEDS: METOPROLOL TARTRATE 50 MG TABLET PO SCH ×2 (08:02→21:10)
[2019-05-21 08:13] LABS: Albumin 1.2 G/DL (3.4-5.0); Bilirubin,Total 0.6 MG/DL (0.2-1.0); Calcium 8.3 MG/DL (8.5-10.1); Osmolality,Calculated 288.5 MOS/KG (273-304); Total Protein 5.8 G/DL (6.4-8.3)
[2019-05-21 08:15] LABS: Anisocytosis Slight; Band Neutrophils 2 % (0-10); Lymphocytes 5 % (20-55); Macrocytosis 1+; Platelet Estimate Normal; Segmented Neutrophils 87 % (50-85); Total Cells Counted 100
[2019-05-21] MEDS: CEFEPIME 1,000 MG VIAL INTRAPERIT SCH (10:26)
[2019-05-21] MEDS: ONDANSETRON 4 MG/2 ML VIAL IV PRN (13:21)
[2019-05-21] MEDS: CLOTRIMAZOLE 1% CREAM 15 GM TUBE TOP SCH ×2 (16:37→21:12)
[2019-05-21] MEDS: ATORVASTATIN 20 MG TABLET PO SCH (21:10)
[2019-05-22] MEDS: HEPARIN 5,000 UNIT/1 ML VIAL SUBCUT SCH ×2 (01:12→09:08)
[2019-05-22 08:15] LABS: Basophils # 0.1 10*3/uL (0.0-0.2); Basophils % 0.3 % (0.0-0.8); Eosinophils # 0.1 10*3/uL (0.0-0.87); Eosinophils % 0.4 % (0.00-10.9); Hematocrit 35.8 VOL% (42.0-52.0); Hemoglobin 11.4 GM/DL (14.0-18.0); Immature Granulocytes Absolute 0.63 #; Lymphocytes # 1.1 10*3/uL (1.4-4.0); Lymphocytes % 7.2 % (21.2-54.2); Mean Corpuscular HGB Conc 31.8 GM/DL (32-36); Mean Corpuscular Volume 95.7 FL (87-102); Mean Platelet Volume 11.2 FL (9.6-12.0); Monocytes % 7.3 % (1.7-12.7); Neutrophils % 80.8 % (38.7-73.9); Platelet Count 321 T/CUMM (130-400); Red Blood Count 3.74 MC/CUMM (3.8-5.5); Red Cell Distribution Width 14.6 % (9.3-17.3); White Blood Count 15.7 T/CUMM (4-12)
[2019-05-22 08:37] LABS: Alanine Aminotransferase 10 U/L (16-61); Albumin 1.2 G/DL (3.4-5.0); Alkaline Phosphatase 98 U/L (45-117); Aspartate Amino Transferase 39 U/L (0-37); Bilirubin,Total < 0.39 MG/DL (0.2-1.0); Blood Urea Nitrogen 37 MG/DL (7-18); Calcium 8.3 MG/DL (8.5-10.1); Glucose 116 MG/DL (74-106); Osmolality,Calculated 286.5 MOS/KG (273-304); Total Protein 5.8 G/DL (6.4-8.3)
[2019-05-22 08:38] LABS: Eosinophils 1 % (0-10); Hypochromasia 1+; Lymphocytes 7 % (20-55); Platelet Estimate Adequate; Segmented Neutrophils 87 % (50-85); Total Cells Counted 100
[2019-05-22 08:39] LABS: Macrocytosis Slight
[2019-05-22] MEDS: POTASSIUM CHLORIDE 20 MEQ TABLET PO SCH (09:07)
[2019-05-22] MEDS: POLYETHYLENE GLYCOL POWDER 17 GM PACK PO SCH (09:08)
[2019-05-22] MEDS: PANTOPRAZOLE 40 MG TABLET PO SCH (09:08)
[2019-05-22] MEDS: ASPIRIN EC 81 MG TABLET PO SCH (09:08)
[2019-05-22] MEDS: CEFEPIME 1,000 MG VIAL INTRAPERIT SCH (09:08)
[2019-05-22] MEDS: CALCITRIOL 0.25 MCG CAPSULE PO SCH (09:08)
[2019-05-22] MEDS: buPROPion SR 100 MG TABLET PO SCH (09:08)
[2019-05-22] MEDS: METOPROLOL TARTRATE 50 MG TABLET PO SCH (09:08)
[2019-05-22] MEDS: CALCIUM ACETATE 667 MG CAPSULE PO SCH ×2 (09:08→12:13)
[2019-05-22] MEDS: MORPHINE 4 MG/1 ML VIAL IV PRN (09:09)
[2019-05-22] MEDS: CLOTRIMAZOLE 1% CREAM 15 GM TUBE TOP SCH (09:10)
[2019-05-22 11:29] VITALS: BP 114/86
== END 2019-05-22 16:06 | disposition home health service (06) | DRG 867 ==
LOC: N.ED 10:53 → SUATTDRO 13:29 → N.EDINP 14:22 → N.5E 14:39
PROVIDERS: ADMIT Hospitalist; ATTEND Internal Medicine